=== PATIENT | female | born 1980 | race Caucasian/White ===

== ENCOUNTER 2021-08-15 10:34 | Day surgery (SDC) | payer OTHER ==
[2021-08-10 13:43] LABS: Absolute Lymphocytes (CBC) 2.1 K/uL (0.7-4.9); Hematocrit 41.5 % (36.0-45.0); Lymphocytes % 27.5 % (15.3-44.8); MPV 7.7 fL (7.6-11.3); RBC Red Blood Cell Count 4.71 M/uL (3.86-4.86)
[2021-08-10 13:54] LABS: Protime INR 1.13
[2021-08-10 14:15] LABS: Potassium 3.9 mmol/L (3.5-5.1)
[2021-08-15] MEDS ORDERED: Ringers Lactate 1,000 ML IV ONE (10:50)
[2021-08-15] MEDS ORDERED: CEFAZOLIN/SWI 2gm 2 GM/20 ML SYR ONE (10:50)
[2021-08-15 10:57] LABS: Specific Gravity >= 1.030 (1.005-1.030)
[2021-08-15] MEDS ORDERED: FENTANYL CITR 100 MCG/2 ML ONE (11:50)
[2021-08-15] MEDS ORDERED: propofoL 200 MG/20 ML VIAL IV ONE ×2 (11:50→12:42)
[2021-08-15] MEDS ORDERED: MIDAZOLAM HCL 2 MG/2 ML INJ ONE (11:50)
[2021-08-15] MEDS ORDERED: LIDOCAINE 1% MPF 5 ML VIAL ONE (11:51)
[2021-08-15] MEDS ORDERED: ONDANSETRON 4 MG/2 ML VIAL ONE (11:51)
[2021-08-15] MEDS ORDERED: dexAMETHasone 10 MG/ML VIAL ONE (11:51)
[2021-08-15] MEDS ORDERED: KETOROLAC 30 MG/ML INJ ONE (12:36)
[2021-08-15] MEDS ORDERED: Mastisol Adhesive Liq ONE (12:48)
--- NOTE | 2021-08-15 13:12 | RAD REPORT ---
EXAM DESCRIPTION: RAD - Urethrocystogrphy Retrograde - 08/15/2021 1:08 pm CLINICAL HISTORY: BILAT RETROGRADE COMPARISON: No comparisons FINDINGS: Total fluoro time: 47 seconds
[2021-08-15] MEDS ORDERED: PHENAZOPYRIDINE 100MG TAB PO ONE ×2 (13:37→14:12)
[2021-08-15] MEDS ORDERED: CODEINE 30MG/APAP 300MG TAB PO PRN (13:37)
--- NOTE | 2021-08-15 14:25 | OP ---
Surgeon: LAUREN CALVILLO Preoperative Diagnoses: 1.Bladder lesion. 2.Mildly suspicious Cxbladder Detect score. Postoperative Diagnoses: 1.Bladder lesion. 2.Mildly suspicious Cxbladder Detect score. 3.Right upper mid pole calyceal blunting/filling defect. Principal Procedures: 1.Cystoscopy with bladder biopsies x3 and fulguration. 2.Bilateral retrograde pyelographies. 3.Right ureteroscopy. 4.Right ureteral stent placement. Indication For Procedure: Ms. Velez is a 41-year-old woman with microscopic hematuria, who present ed for cystoscopic evaluation. There significant degree of squamous metaplasia was noted in the trig one and around the ureteral orifices bilaterally with a small approximately 2 mm yellowish appearing sessile nodule posteriorly. She underwent a renal ultrasound, which was unremarkable and a Cxbladder Detect score was sent to assess the potential for underlying genetic signs of malignancy. The Cxbla dder Detect score came out borderline for hygiene expression and given the significant degree of squa mous metaplasia noted, I recommended bladder biopsies as well as retrograde pyelography studies since she did not undergo a CT urogram. Procedure In Detail: The patient was consented in the preoperative holding area before being transfe rred to the operative suite where general anesthesia was induced. She was given Ancef IV antimicrobi al prophylaxis and pneumo boots were provided for DVT prophylaxis. She was placed in lithotomy posit ion, padded and secured to the table appropriately. Her genitalia were prepped using Hibiclens and d raped in standard fashion. The case was begun using a 22-Liberian rigid cystoscope to traverse the ure thra and into the bladder with ease. The bladder was then surveyed in its entirety, and the previous ly observed sessile yellowish appearing nodule posteriorly was no longer visible. The significant de gree of squamous metaplasia noted within the trigone and medial to the ureteral orifices bilaterally was again noted. There was efflux of clear yellow urine coming from each kidney. As such, I began b y cannulating the left ureteral orifice using the tip of the 5-Liberian ureteral access catheter and pe rform a retrograde pyelogram. Left retrograde pyelography: Using a 70:30 mixture of Omnipaque and saline, contrast was injected via the lumen of the 5-Liberian ur eteral access catheter and did propagate up a nondilated ureter without evidence of ureteral filling defect before entering a normal renal pelvis without any signs of caliectasis or filling defects note d. As a result, the 5-Liberian ureteral access catheter was removed, and I turned my attention to the right ureteral orifice, which was similarly cannulated using the 5-Liberian ureteral access catheter. Right retrograde pyelography: Using a similar 70:30 mixture of Omnipaque and saline, the contrast mixture was injected via the 5-Fr ench ureteral access catheter and did propagate up a nondilated ureter without evidence of ureteral f illing defect before entering the renal pelvis, which did fill normally without evidence of filling d efect. The upper and lower pole calices also delineated normally without evidence of filling defects . Within the mid pole superiorly, there was a solitary calyx that appeared blunted without the stand cortney sharp calyceal distribution. Despite further attempts to fill that by injection of further contr ast, the blunting persisted; so I then passed a Sensor wire via the 5-Liberian ureteral access catheter and coiled it within the upper pole of the right kidney. I then removed the 5-Liberian ureteral acces s catheter and passed a dual-lumen catheter over the wire into the upper part of the right ureter. C ontrast was injected early on in the course of insertion of the dual-lumen catheter into the distal u reter to confirm the appropriate intraureteral lumen location of the catheter and the wire. As such, once in the upper portion of the right ureter, I then passed a Bentson guidewire into the renal pelv is where it coiled fluoroscopically. I then left the dual-lumen catheter and placed to dilate the tr act in preparation for definitive ureteroscopy. Right ureteroscopy. The flexible optical ureteroscope was then passed over the indwelling Bentson wi re into the upper portion of the right ureter. There, the wire was removed, and pressurized sterile water irrigation was used to visualize the upper portion of the ureter beyond the UPJ and passed into the kidney. The upper pole calices were surveyed without any mucosal lesion, foreign body, or stone . I then surveyed into the upper mid pole calices, particularly the calyx that was somewhat blunted, and found a solitary calyx that emanated directly off the renal pelvis without any significant infun dibulum explaining the blunting seen in that location fluoroscopically on retrograde. I then surveye d into the mid lower pole calices and into the lower pole calices, confirmed fluoroscopically that ea ch position had been seen. Additional antegrade injection of contrast was performed to ensure that e ach of the calices had been visualized. Once I confirmed that I had seen all of the calices, I then surveyed the renal pelvis down into the proximal down through the mid and distal ureter on the way ou t. No other mucosal lesions, foreign bodies or stones were noted throughout. As such, ureteroscopy was discontinued. I then back-loaded the rigid cystoscope over the indwelling safety wire and passed a 6-Liberian by 26 cm double-J right ureteral stent, left on it string/tether. Then leaving the stent tethered outside of the introitus, with fluoroscopic imagery confirming the presence of the coil wit hin the right kidney and visualizing a coil within the bladder, I then turned my attention to biopsyi ng the areas of the trigone of suspicion. Biopsy from the right ureteral orifice was taken first, th en from the left ureteral orifice, then from the trigone. These were each sent for pathologic analys is. I then employed the Bugbee electrode to gently fulgurate any bleeding vessels seen in the areas of biopsy taken. I then decompressed her bladder and observed for any sign of bleeding, and with no additional bleeding noted, I removed the cystoscope terminating the case. I then secured the tether of the ureteral stent to her introitus using Mastisol and Steri-Strips. She was then taken out of th e lithotomy position, awakened from general anesthesia, transferred to a stretcher, and then transfer red to the recovery room in good condition. Complications: None. Discharge Disposition: She should follow up in the Urology Clinic in 1-2 weeks' time to discuss the results of pathology. She may come by sooner, within the next 2 or 3 days, to have the right uretera l stent on its tether removed. I will discharge her with a few days of antimicrobial therapy while the stent on its tether remains in place. WR/MODL Voice ID: [id number] Report ID: [id number]
[2021-08-15 15:35] VITALS: BP 141/80; TEMP 97.7; O2SAT 100
== END 2021-08-15 14:35 | disposition home or self-care (01) ==
LOC: OR 10:34
PROVIDERS: ATTEND Urology
PROC: 0TBB8ZX Excision of Bladder, Via Natural or Artificial Opening Endoscopic, Diagnostic (ICD-10-PCS; principal; 2021-08-15 12:00)
PROC: 0T768DZ Dilation of Right Ureter with Intraluminal Device, Via Natural or Artificial Opening Endoscopic (ICD-10-PCS; 2021-08-15 12:00)
DX: R31.29 Other microscopic hematuria (principal); N32.9 Bladder disorder, unspecified; Z20.822 Contact with and (suspected) exposure to COVID-19
CPT/HCPCS: 87088; 85025; 87086; 80048; 36415; 81025; 85610; 88305; 74450; 51610; 52204; 52332; U0002; J2704 ×2; J2250; J3010; J1100; J0690; J7120; J2405

== ENCOUNTER 2021-08-20 09:01 | Day surgery (SDC) | payer OTHER ==
--- OUTSIDE RECORDS SUMMARY | 2021-08-20 09:07 | XMS REPORT | Continuity of Care Document ---
:1980 Author Organization [facility] Address [address] [place] [address] Care Team Providers Name Role Phone Lindy_Francisco Attending Clinician Unavailable AMBREEN_ALESIA Attending Clinician Unavailable SEYMOUR Attending Clinician Unavailable Nguyneil_Tho Admitting Clinician Unavailable AMBREEN_FARHANA Admitting Clinician Unavailable JENNY_CATIE Admitting Clinician Unavailable Payers Payer Name Policy Type Policy Number Effective Date Expiration Date [facility] [id number] Problems Condition Condition Condition Status Onset Resolution Last Treating Co mments Source Name Details Category Date Date Treatment Clinician Date Bladder Bladder Problem Active [place] finding Finding 1-12 da [facility] Recurrent Recurrent Problem Active 2020-07 [place] hematuria Hematuria 2-15 da 00:00: [facility] Urine Urine Problem Active 2020-07 [place] microscopy microscopy 2-15 da :RBC's :RBC's 00:00: [facility] present Present 00 al [facility] Allergic Allergic Problem Active 2020-07 [place] conjunctiv Conjunctiv 1-18 da itis itis 00:00: [facility] Allergic Allergic Problem Active 2020-07 [place] rhinitis Rhinitis 1-18 da 00:00: [facility] Allergic Allergic Problem Active 2020-07 [place] asthma Asthma 1-18 da 00:00: [facility] Pica Pica Problem Active [place] 6-02 da 00:00: [facility] 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 [facility] [place] insufficie Insufficie 2-03 da ncy of ncy of 00:00: [facility] aortic Aortic 00 al valve Valve Health Outreac h Program Bicuspid Bicuspid Problem Active 2018-07 [place] aortic Aortic 1-11 da valve Valve 00:00: [facility] Migraine Migraine Problem Active 2017-07 [place] without without 0-24 da aura Aura 00:00: [facility] Chronic Chronic Problem Active 2017-07 [place] gastritis Gastritis 0-24 da 00:00: [facility] Major Major Problem Active [place] depressive Depressive 9-10 da disorder Disorder 00:00: [facility] p 00 hi [facility] Hyperlipid Hyperlipid Problem Active [facility] [place] emia emia 8 da 00:00: [facility] Anxiety Anxiety Problem Active [place] 8 da 00:00: [facility] Asthma Asthma Problem Active [place] 8 da 00:00: [facility] Allergies, Adverse Reactions, Alerts Allergy Allergy Status Severity Reaction(s) Onset Inactive Treating Comm ents Source Name Type Date Date Clinician Atenolol Allergy Active Mild to Other [place] to moderate da substanc [facility] Topamax Allergy Active Mild to Other [place] to moderate da substanc [facility] Singulai Allergy Active Hives [place] to da substanc [facility] Social History Smoking Status Start Date Stop Date Source Never Smoker [place] [facility] Medications Ordered Filled Start Stop Current Ordering Indication Dosage Frequency Signature Comments Components Source Medication Medication Date Date Medication? Clinician (SIG) Name Name cannabidiol cannabidiol No cannabidio [place] (CBD) (CBD) 1-20 l (CBD) da extract 1-2 extract 1-2 00:00: extract [facility] gummy gummy 00 1-2 gummy al vitamins PO vitamins PO vitamins Health qd prn qd prn PO qd prn Outrea c h Program Advair HFA Advair HFA No Advair HFA [place] 115 mcg-21 115 mcg-21 115 mcg-21 da mcg/actuati mcg/actuati mcg/actuat [facility] on aerosol on aerosol ion al inhaler inhaler aerosol Health INHALE 2 INHALE 2 inhaler Outr eac PUFFS BY PUFFS BY INHALE 2 h MOUTH TWICE MOUTH TWICE PUFFS BY Program DAILY DAILY MOUTH DIRECTED DIRECTED TWICE DAILY DIRECTED albuterol albuterol No albuterol [place] sulfate HFA sulfate HFA sulfate da 90 90 HFA 90 [facility] mcg/actuati mcg/actuati mcg/actuat al on aerosol on aerosol ion Hea lth inhaler inhaler aerosol Outrea c INHALE 2 INHALE 2 inhaler h PUFFS BY PUFFS BY INHALE 2 Pro gram MOUTH EVERY MOUTH EVERY PUFFS BY 4 HOURS 4 HOURS MOUTH NEEDED NEEDED EVERY 4 HOURS NEEDED atorvastati atorvastati No atorvastat [place] n 10 mg n 10 mg in 10 mg da tablet Take tablet Take tablet [facility] 1 tablet(s) 1 tablet(s) Take 1 al every day every day tablet(s) Health by oral by oral every day Outr eac route at route at by oral h bedtime. bedtime. route at Pro gram bedtime. CoQ-10 300 CoQ-10 300 No CoQ-10 300 [place] mgs PO qd mgs PO qd mgs PO qd da [facility] desvenlafax desvenlafax No 1 Q1D desvenlafa [place] ine ine xine da succinate succinate succinate [facility] ER 25 mg ER 25 mg ER 25 mg al tablet,exte tablet,exte tablet,ext Health nded nded ended Outreac release 24 release 24 release 24 h hr Take 1 hr Take 1 hr Take 1 Program tablet tablet tablet every day every day every day by oral by oral by oral route in route in route in the the the morning. morning. morning. desvenlafax desvenlafax No desvenlafa [place] ine ine xine da succinate succinate succinate [facility] ER 50 mg ER 50 mg ER 50 mg al tablet,exte tablet,exte tablet,ext Health nded nded ended Outreac release 24 release 24 release 24 h hr TAKE 1 hr TAKE 1 hr TAKE 1 Program TABLET BY TABLET BY TABLET BY MOUTH EVERY MOUTH EVERY MOUTH DAY IN THE DAY IN THE EVERY DAY MORNING MORNING IN THE MORNING epinephrine epinephrine No epinephrin [place] 0.3 mg/0.3 0.3 mg/0.3 e 0.3 da mL mL mg/0.3 mL [facility] injection, injection, injection, al auto-inject auto-inject auto-injec Health or INJECT 1 or INJECT 1 tor INJECT Outreac PEN IN THE PEN IN THE 1 PEN IN h MUSCLE MUSCLE THE MUSCLE Program NEEDED NEEDED NEEDED Fish Oil Fish Oil No 1capsul Q1D Fish Oil [place] 1,200 mg 1,200 mg e(s) 1,200 mg da (144 mg-216 (144 mg-216 (144 E [facility] mg) capsule mg) capsule mg-216 mg) al Take 1 Take 1 capsule Health capsule capsule Take 1 Outreac every day every day capsule h by oral by oral every day Prog mini route as route as by oral directed. directed. route as directed. fluticasone fluticasone No 1spray( Q1D fluticason [place] propionate propionate s) e da 50 50 propionate [facility] mcg/actuati mcg/actuati 50 a l on nasal on nasal mcg/actuat H ealth spray,suspe spray,suspe ion nasal Outreac nsion [place]ountain nsion [place]ountain spray,susp h 1 spray 1 spray ension Program every day every day Fountain 1 by by spray intranasal intranasal every day route as route as by needed. needed. intranasal route as needed. magnesium magnesium No 1 magnesium [place] 250 mg (as 250 mg (as 250 mg (as da magnesium magnesium magnesium [facility] oxide) oxide) oxide) al tablet Take tablet Take tablet Health 1 tablet as 1 tablet as Take 1 Outreac needed by needed by tablet as h oral route oral route needed by Program at bedtime. at bedtime. oral route at bedtime. meclizine meclizine No 1 Q12H meclizine [place] 50 mg 50 mg 50 mg da tablet Take tablet Take tablet [facility] 1 tablet 1 tablet Take 1 al every 12 every 12 tablet Healt h hours by hours by every 12 Out reac oral route oral route hours by h as needed as needed oral route Program for 10 for 10 as needed days. days. for 10 days. ondansetron ondansetron No ondansetro [place] 8 mg 8 mg n 8 mg da disintegrat disintegrat disintegra [facility] ing tablet ing tablet ting al DISSOLVE 1 DISSOLVE 1 tablet H ealth TABLET ON TABLET ON DISSOLVE 1 Outreac THE TONGUE THE TONGUE TABLET ON h EVERY 8 EVERY 8 THE TONGUE Pro gram HOURS FOR 5 HOURS FOR 5 EVERY 8 DAYS DAYS HOURS FOR NEEDED NEEDED 5 DAYS NEEDED rizatriptan rizatriptan No rizatripta [place] 10 mg 10 mg n 10 mg da disintegrat disintegrat disintegra [facility] ing tablet ing tablet ting al DISSOLVE 1 DISSOLVE 1 tablet H ealth TABLET ON TABLET ON DISSOLVE 1 Outreac THE TONGUE THE TONGUE TABLET ON h FOR ACUTE FOR ACUTE THE TONGUE Program MIGRAINE. MIGRAINE. FOR ACUTE REPEAT IN 1 REPEAT IN 1 MIGRAINE. HOUR IF HOUR IF REPEAT IN NEEDED NEEDED 1 HOUR IF NEEDED trazodone trazodone No trazodone [place] 50 mg 50 mg 50 mg da tablet TAKE tablet TAKE tablet [facility] 1 TABLET BY 1 TABLET BY TAKE 1 al MOUTH EVERY MOUTH EVERY TABLET BY Health DAY DAY MOUTH Outreac EVERY DAY h Program turmeric 1 turmeric 1 No turmeric 1 [place] capsule capsule capsule da every day every day every day [facility] as needed as needed as needed al for sleep for sleep for sleep Health Outreac h Program Vitamin D3 Vitamin D3 No Vitamin D3 [place] [id number] 53723 da units/250 units/250 units/250 [facility] mcgs by mcgs by mcgs by al mouth once mouth once mouth once Health daily daily daily Outreac h Program Zyrtec 10 Zyrtec 10 No Zyrtec 10 [place] mg capsule mg capsule mg capsule da [facility] Immunizations Ordered Immunization Filled Immunization Date Status Commen ts Source Name Name HPV9 HPV9 2021-07-31 Completed [place] 14:49:18 [facility] pneumococcal pneumococcal 2021-07-31 Completed [place] polysaccharide PPV23 polysaccharide PPV23 14:43:27 [facility] influenza, influenza, 2021-04-17 Completed [place] injectable, injectable, 00:00:00 [facility] quadrivalent quadrivalent [facility] Out reach Program COVID-19, mRNA, COVID-19, mRNA, 2020-09-16 Completed Lynn mau LNP-S, PF, 100 LNP-S, PF, 100 12:54:18 [facility] pal mcg/0.5 mL dose mcg/0.5 mL dose Heal th Outreach (Moderna) (Moderna) Program COVID-19, mRNA, COVID-19, mRNA, 2020-08-10 Completed Lynn mau LNP-S, PF, 100 LNP-S, PF, 100 11:21:20 [facility] pal mcg/0.5 mL dose mcg/0.5 mL dose Heal th Outreach (Moderna) (Moderna) Program influenza, influenza, 2020-03-31 Completed [place] injectable, injectable, 00:00:00 [facility] quadrivalent quadrivalent [facility] Out reach Program influenza, influenza, 2019-04-14 Completed [place] injectable, injectable, 00:00:00 [facility] quadrivalent quadrivalent [facility] Out reach Program pneumococcal pneumococcal 2015-05-06 Completed [place] polysaccharide PPV23 polysaccharide PPV23 00:00:00 [facility] Tdap Tdap 2014-11-12 Completed [place] 00:00:00 [facility] Vital Signs Vital Name Observation Time Observation Value Comments Source BP Diastolic 2021-07-04 00:00:00 84 [facility] Height 2021-07-04 00:00:00 67 [in_i] [facility] BMI (Body Mass 2021-07-04 00:00:00 39 kg/m2 [place] cap blocker [facility] Index) [facility] Outreach Program BP Systolic 2021-07-04 00:00:00 126 mm[facility]Hg[facility] Body Weight 2021-07-04 00:00:00 3984 [oz_av] [facility] BP Diastolic 2021-06-20 00:00:00 78 mm[Hg[facility] Height 2021-06-20 00:00:00 67 [in_i] [facility] BMI (Body Mass 2021-06-20 00:00:00 38.4 kg/m2 [place] cap blocker [facility] Index) [facility] Outreach Program BP Systolic 2021-06-20 00:00:00 116 mm[Hg] [facility] Body Weight 2021-06-20 00:00:00 3920 [oz_av] [facility] BP Diastolic 2021-01-19 00:00:00 78 mm[Hg] [facility] Height 2021-01-19 00:00:00 67 [in_i] [place] [facility] BMI (Body Mass 2021-01-19 00:00:00 36.8 kg/m2 [place] cap blocker [facility] Index) [facility] Outreach Program BP Systolic 2021-01-19 00:00:00 118 mm[Hg] [place] [facility] Body Weight 2021-01-19 00:00:00 3760 [oz_av] [place] [facility] BP Diastolic 2020-11-29 00:00:00 88 mm[Hg] [place] [facility] Height 2020-11-29 00:00:00 67 [in_i] [place] [facility] BMI (Body Mass 2020-11-29 00:00:00 36.6 kg/m2 [place] cap blocker [facility] Index) [facility] Outreach Program BP Systolic 2020-11-29 00:00:00 126 mm[Hg] [place] [facility] Body Weight 2020-11-29 00:00:00 3744 [oz_av] [place] [facility] BP Diastolic 2020-09-28 00:00:00 75 mm[Hg] [place] [facility] Height 2020-09-28 00:00:00 67 [in_i] [place] [facility] BMI (Body Mass 2020-09-28 00:00:00 36 kg/m2 [place] cap blocker [facility] Index) [facility] Out[facility] Program BP Systolic 2020-09-28 00:00:00 129 mm[Hg] [place] [facility] Body Weight 2020-09-28 00:00:00 3680 [oz_av] [place] [facility] BP Diastolic 2020-07-05 00:00:00 84 mm[Hg] [place] [facility] Height 2020-07-05 00:00:00 67 [in_i] [place] [facility] BP Systolic 2020-07-05 00:00:00 129 mm[Hg] [place] [facility] Height 2020-06-20 00:00:00 67 [in_i] [place] [facility] Height 2020-06-06 00:00:00 67 [in_i] [place] [facility] BP Diastolic 2020-04-15 00:00:00 94 mm[Hg] [place] [facility] Height 2020-04-15 00:00:00 67 [in_i] [place] [facility] BMI (Body Mass 2020-04-15 00:00:00 36 kg/m2 [place] cap blocker [facility] Index) [facility] Outreach Program BP Systolic 2020-04-15 00:00:00 128 mm[Hg] [place] [facility] Body Weight 2020-04-15 00:00:00 3680 [oz_av] [place] [facility] BP Diastolic 2019-12-28 00:00:00 68 mm[Hg] [place] [facility] Height 2019-12-28 00:00:00 67 [in_i] [place] [facility] BMI (Body Mass 2019-12-28 00:00:00 39.4 kg/m2 [place] cap blocker [facility] Index) [facility] Outreach Program BP Systolic 2019-12-28 00:00:00 124 mm[Hg] [place] [facility] Body Weight 2019-12-28 00:00:00 4027.2 [oz_av] [place] [facility] BP Diastolic 2019-08-25 00:00:00 92 mm[Hg] [place] [facility] Height 2019-08-25 00:00:00 67 [in_i] [place] [facility] BMI (Body Mass 2019-08-25 00:00:00 37.6 kg/m2 [place] cap blocker [facility] Index) [facility] Outreach Program BP Systolic 2019-08-25 00:00:00 115 mm[Hg] [place] [facility] Body Weight 2019-08-25 00:00:00 240.2 [lb_av] [place] [facility] BP Diastolic 2019-06-05 00:00:00 84 mm[Hg] [place] [facility] Height 2019-06-05 00:00:00 67 [in_i] [place] [facility] BMI (Body Mass 2019-06-05 00:00:00 36.8 kg/m2 [place] cap blocker [facility] Index) [facility] BP Systolic 2019-06-05 00:00:00 132 mm[Hg] [place] [facility] Body Weight 2019-06-05 00:00:00 235 [lb_av] [place] [facility] BP Diastolic 2019-05-20 00:00:00 80 mm[Hg] [place] [facility] Height 2019-05-20 00:00:00 67 [in_i] [place] [facility] BMI (Body Mass 2019-05-20 00:00:00 37.4 kg/m2 [place] cap blocker [facility] Index) [facility] Outreach Program BP Systolic 2019-05-20 00:00:00 100 mm[Hg] [place] [facility] Body Weight 2019-05-20 00:00:00 239.1 [lb_av] [place] [facility] BP Diastolic 2019-04-22 00:00:00 86 mm[Hg] [place] [facility] Height 2019-04-22 00:00:00 67 [in_i] [place] [facility] BMI (Body Mass 2019-04-22 00:00:00 37.5 kg/m2 [place] cap blocker [facility] Index) [facility] Outreach Program BP Systolic 2019-04-22 00:00:00 112 mm[Hg] [place] [facility] Body Weight 2019-04-22 00:00:00 239.2 [lb_av] [place] [facility] BP Diastolic 2019-04-15 00:00:00 82 mm[Hg] [place] [facility] Height 2019-04-15 00:00:00 67 [in_i] [place] [facility] BMI (Body Mass 2019-04-15 00:00:00 37.4 kg/m2 [place] cap blocker [facility] Index) [facility] Outreach Program BP Systolic 2019-04-15 00:00:00 110 mm[Hg] [place] [facility] Body Weight 2019-04-15 00:00:00 239.1 [lb_av] [place] [facility] BP Diastolic 2019-03-20 00:00:00 90 mm[Hg] [place] [facility] Height 2019-03-20 00:00:00 67 [in_i] [place] [facility] BMI (Body Mass 2019-03-20 00:00:00 37.6 kg/m2 [place] cap blocker [facility] Index) [facility] Outreach Program BP Systolic 2019-03-20 00:00:00 140 mm[Hg] [place] [facility] Body Weight 2019-03-20 00:00:00 240.2 [lb_av] [place] [facility] BP Diastolic 2019-03-11 00:00:00 90 mm[Hg] [place] [facility] Height 2019-03-11 00:00:00 67 [in_i] [place] [facility] BP Systolic 2019-03-11 00:00:00 130 mm[Hg] [place] [facility] BP Diastolic 2018-11-20 00:00:00 97 mm[Hg] [place] [facility] Height 2018-11-20 00:00:00 67 [in_i] [place] [facility] BMI (Body Mass 2018-11-20 00:00:00 37.6 kg/m2 [place] cap blocker [facility] Index) [facility] Outreach Program BP Systolic 2018-11-20 00:00:00 136 mm[Hg] [place] [facility] Body Weight 2018-11-20 00:00:00 240 [lb_av] [place] [facility] Procedures Procedure Date / Time Performed Performing Clinician Sourc e Cystoscopy 2021-07-26 00:00:00 Joanne [facility] MAMMO, diagnostic, 2021-07-24 00:00:00 Joanne [facility] digital, unilateral Health Outre ach Program US, breast, 2021-07-20 00:00:00 [place] [facility] unilateral, complete Health Outr each Program ELECTROCARDIOGRAM, 2021-07-04 00:00:00 [place] [facility] COMPLETE [facility] US, breast, unilateral 2021-07-04 00:00:00 [place] [facility] MAMMO, screening, 2020-06-06 00:00:00 [place] [facility] digital, bilateral Health Outrea ch Program ELECTROCARDIOGRAM, 2020-06-06 00:00:00 [place] [facility] COMPLETE [facility] CHEST X-RAY 2019-08-25 00:00:00 [place] [facility] MAMMO, screening, 2019-04-22 00:00:00 [place] [facility] digital, bilateral Health Outrea ch Program ELECTROCARDIOGRAM, 2019-04-15 00:00:00 [place] [facility] COMPLETE [facility] XR, ankle + foot 2018-10-29 00:00:00 [place] [facility] Nasal Surgery [place] [facility] pal Procedure [facility] Outreach Program Plan of Care Planned Activity Planned Date Details Comments Source Future Appointment 2022-01-28 00:00:00 Catie La, [place] [facility] [address] , [place] Program [id number] Future Appointment 2022-01-18 15:00:00 Tia Kramer, [address] [place] [facility] , [place] Program [phone] Future Appointment 2021-10-16 14:30:00 Wang Torres, [address] [place] [address] , [place] Program [phone] Instructions [place] [facility] Encounters Start End Encounter Admission Attending Care Care Encounter Source Date/Time Date/Time Type Type Clinicians Facility Department ID 2021-08-09 Outpatient [facility] [id number] 13:33:00 [id number] Mayank Begum l Outpat[facility] ent Clinics 2021-08-15 2021-08-15 Outpatient Tiffanie SLADE [id number] [place] 03:17:00 03:17:00 0201 [facility] 2021-08-11 2021-08-11 Outpatient Nguyen_Sunilo [facility] [id number] [place] 05:54:00 05:54:00 0128 [facility] 2021-08-10 2021-08-10 Outpatient Nguyen_Sunilo [facility] [id number] [place] 07:43:00 07:43:00 0127 [facility] 2021-08-10 2021-08-10 Jhoan [facility] [place] - [id number] M [place] 00:00:00 00:00:00 Joanne Beauchamp da CNC LATHE PROGRAMMER: [id number] [facility] [address] [facility], [facility] [place] Program [id number] , Ph. 2021-08-04 2021-08-04 Outpatient Ngyueen_Francisco [facility] [id number] [place] 05:30:00 05:30:00 0121 [facility] 2021-08-04 2021-08-04 Jhoan [facility] [place] - [id number] M [place] 00:00:00 00:00:00 Joanne Beauchamp CNC LATHE PROGRAMMER: [id number] [facility] [place] [address] [facility] A, [facility] [place] Program [phone] , Ph. 2021-08-01 2021-08-01 Outpatient Nguyen_Sunilo [facility] [id number] [place] 05:31:00 05:31:00 0118 [facility] 2021-07-31 2021-07-31 Outpatient Nguyen_Sunilo [facility] [id number] [place] 03:27:00 03:27:00 0117 [facility] 2021-07-31 2021-07-31 Sunilchhaya [facility] [place] - [id number] M at[place] 00:00:00 00:00:00 Joanne Israel da PER DIEM PHYSICAL THERAPIST ASSISTANT-TIRE BALANCER-C: [facility] [address] [facility] [phone] [facility] , Ph. 2021-07-27 2021-07-27 Outpatient Nguyen_Tho [facility] [id number] [place] 12:26:00 12:26:00 0113 [facility] 2021-07-26 2021-07-26 Outpatient Nguyen_Tho [facility] [id number] [place] 04:58:00 04:58:00 0112 [facility] 2021-07-26 2021-07-[facility] [id number]:00 00:00:00 Joanne Beauchamp CNC LATHE PROGRAMMER: 1700 [facility] Epis copy worker [facility] [phone] h , Ph. Program ([id number]) 2021-07-21 2021-07-21 Outpatient Nguyen_Tho [facility] [id number] [place] 09:11:00 09:11:00 0107 [facility] 2021-07-20 2021-07-20 Outpatient Nguyen_Tho [facility] [id number] [place] 02:13:00 02:13:00 0106 [facility] 2021-07-18 2021-07-18 Outpatient Nguyen_Tho [facility] [id number] [place] 08:58:00 08:58:00 0104 [facility] 2021-07-04 2021-07-04 Outpatient Nguyen_Tho [facility] [id number] [place] 04:31:00 04:31:00 1221 [facility] 2021-07-04 2021-07-04 [facility] - [id number] M [place] 00:00:00 00:00:00 Joanne Israel da PER DIEM PHYSICAL THERAPIST ASSISTANT-TIRE BALANCER-C: [facility] [address] [facility] [address], [facility] [id number] Progr am , Ph. 2021-06-22 2021-06-22 Outpatient Nguyen_[facility] 8919 [place] 04:33:00 04:33:00 1209 [facility] 2021-06-20 2021-06-20 Outpatient AMBREEN_[place] [id number] [place] 12:47:00 12:47:00 HANA 1207 da [facility] 2021-06-20 2021-06-20 Francisco [facility] [id number] [place] 00:00:00 00:00:00 Joanne Israel da PER DIEM PHYSICAL THERAPIST ASSISTANT-TIRE BALANCER-C: [facility] [address] [facility] [address], [facility] [id number] [place] am , Ph. 2021-05-09 2021-05-09 Outpatient AMBREEN_[place]AR [place] [id number] [place] 04:07:00 04:07:00 HANA 1026 da [facility] 2021-05-09 2021-05-09 [facility] [id number] M at[place] 00:00:00 00:00:00 Joanne Beauchamp da CNC LATHE PROGRAMMER: 1700 [facility] Epis copy worker [facility] [phone] h , Ph. Program ([id number]) 2021-05-03 2021-05-03 Outpatient AMBREEN_[place] [id number] [place] 10:42:00 10:42:00 HANA 1020 da [facility] 2021-05-03 2021-05-03 Jhoan [facility] [id number] M at[place] 00:00:00 00:00:00 Joanne Beauchamp [facility]: [id number] [facility] [place] [address] [facility] [address], [facility] Program [phone] , Ph. 2021-05-02 2021-05-02 Outpatient AMBREEN_FAR [facility] 89 [place] 12:36:00 12:36:00 HANA 1019 [facility] 2021-05-01 2021-05-01 Outpatient AMBREEN_FAR MEHOP [facility] 89 [place] 12:29:00 12:29:00 HANA 1018 [facility] 2021-05-01 2021-05-01 [facility] [id number] [place] 00:00:00 00:00:00 Ismael Torres MD: [facility] [address] [facility] [id number] [facility] , Ph. ([phone]) 2021-03-27 2021-03-27 Outpatient AMBREEN_FAR [place] [id number] [place] 12:35:00 12:35:00 HANA 0913 [facility] 2021-02-20 2021-02-20 Outpatient AMBREEN_FAR MEHOP [facility] 89 [place] 12:27:00 12:27:00 HANA 0809 [facility] 2021-01-31 2021-01-31 Outpatient AMBREEN_FAR MEHOP [facility] 891 [place] 05:48:00 05:48:00 HANA 0720 [facility] 2021-01-30 2021-01-30 Outpatient AMBREEN_FAR MEHOP [facility] 891 [place] 04:41:00 04:41:00 HANA 0719 [facility] 2021-01-30 2021-01-30 [facility] [place] [facility] [id number] [place] 00:00:00 00:00:00 Joanne Beauchamp [facility]: [id number] Tenriism Epi scop [place] 59 [facility] [address], [facility] Program [address] , Ph. 2021-01-19 2021-01-19 Outpatient AMBREEN_FAR [facility] 891 [place] 02:53:00 02:53:00 HANA 0708 [facility] 2021-01-19 2021-01-19 [facility] [place] - [id number] M [place] 00:00:00 00:00:00 Joanne Israel PER DIEM PHYSICAL THERAPIST ASSISTANT-TIRE BALANCER-C: Tenriism Epi scop 1700 [facility] [address] [facility] , Ph. 2021-01-12 2021-01-12 Outpatient AMBREEN_FAR MEHOP [facility] 891 [place] 04:07:00 04:07:00 HANA 0701 [facility] 2020-12-07 2020-12-07 Outpatient AMBREEN_FAR MEHOP [facility] 891 [place] 09:07:00 09:07:00 HANA 0526 [facility] 2020-11-29 2020-11-29 Outpatient AMBREEN_FAR [facility] 89 [place] 12:31:00 12:31:00 HANA 0518 [facility] 2020-11-29 2020-11-29 [facility] [place] - [id number] M [place] 00:00:00 00:00:00 Joanne Israel da PER DIEM PHYSICAL THERAPIST ASSISTANT-TIRE BALANCER-C: Tenriism Epi scop 1700 [facility] [address] [facility] evelyn , Ph. 2020-10-24 2020-10-24 Outpatient AMBREEN_FAR [place] [id number] [place] 02:18:00 02:18:00 HANA 0412 [facility] 2020-10-24 2020-10-24 Wang [facility] [place] - [id number] [place] 00:00:00 00:00:00 Ismael Torres MD: Tenriism Epi scop 1700 [facility] [address] [facility] , Ph. (979) 2020-09-28 2020-09-28 Outpatient AMBREEN_FAR [place] [id number] [place] 10:55:00 10:55:00 HANA 0317 [facility] 2020-09-28 2020-09-28 Jaimee Mccann [facility] [place] - [id number] [place] 00:00:00 00:00:00 Joanne Pedro TIRE BALANCER: 1700 Tenriism [facility] [place] [address] Out[place] [address] h , Ph. Program 2020-09-23 2020-09-23 Outpatient AMBREEN_FAR [place] [id number] [place] 05:19:00 05:19:00 HANA 0312 [facility] 2020-09-23 2020-09-23 Jhoan [facility] [place] - [id number] M [place] 00:00:00 00:00:00 Joanne Beauchamp CNC LATHE PROGRAMMER: [id number] Tenriism Epi scop US [address] [facility] [address], [place] [facility] [address] , Ph. 2020-09-16 2020-09-16 Outpatient AMBREEN_FAR [place] [address] [place] 03:00:00 03:00:00 HANA 0305 [facility] 2020-09-16 2020-09-16 Alesia [facility] [place] - [id number] M [place] 00:00:00 00:00:00 Joanne Siddiqui MD: 17[address] [facility] [facility] [facility] [address] [address] h , Ph. Program 2020-08-16 2020-08-16 Outpatient AMBREEN_FAR MEHOP [facility] 891 [place] 01:03:00 01:03:00 HANA 0202 [facility] 2020-08-10 2020-08-10 Outpatient AMBREEN_FAR MEHOP [facility] 891 [place] 12:29:00 12:29:00 HANA 0127 [facility] 2020-08-10 2020-08-10 Alesia [facility] [place] - [id number] M [place] 00:00:00 00:00:00 Joanne Siddiqui MD: [address] [place] Outre [address] h , Ph. Program 2020-07-12 2020-07-12 Outpatient AMBREEN_FAR MEHOP [facility] 891 [place] 01:04:00 01:04:00 HANA 1229 [facility] 2020-07-05 2020-07-05 Outpatient AMBREEN_FAR M[facility]OP [facility] 891 [place] 05:06:00 05:06:00 HANA 1222 [facility] 2020-07-05 2020-07-05 Jaimee Mccann [facility] [place] - [id number] [place] 00:00:00 00:00:00 Joanne Pedro TIRE BALANCER: 17[address] [facility] [address] [facility] [address] h , Ph. Program 2020-07-04 2020-07-04 Outpatient AMBREEN_FAR MEHOP [facility] 891 [place] 02:30:00 02:30:00 HANA 1221 [facility] 2020-07-04 2020-07-04 Wang [facility] [place] - [id number] M [place] 00:00:00 00:00:00 Ismael Torres MD: Tenriism Epi scop 1700 [facility] [place] [address] [facility] , Ph. (979) 2020-06-20 2020-06-20 Outpatient AMBREEN_FAR MEHOP [facility] 891 [place] 05:36:00 05:36:00 HANA 1207 [facility] 2020-06-20 2020-06-20 [facility] - [id number] [place] 00:00:00 00:00:00 Joanne Siddiqui MD: 1700 Tenriism Ep[facility] op Malcolm [facility] [address] h , Ph. Program 2020-06-07 2020-06-07 Outpatient AMBREEN_FAR MEHOP [facility] 891 [place] 09:16:00 09:16:00 HANA 1124 [facility] 2020-06-06 2020-06-06 Outpatient AMBREEN_FAR MEHOP [facility] 891 [place] 05:28:00 05:28:00 HANA 1123 [facility] 2020-06-06 2020-06-06 Alesia [facility] [place] - [id number] M [place] 00:00:00 00:00:00 Joanne Siddiqui MD: 1700 Tenriism Episc op [facility] [address] h , Ph. Program 2020-04-15 2020-04-15 Outpatient AMBREEN_FAR MEHOP [facility] 891 [place] 10:26:00 10:26:00 HANA 1002 [facility] 2020-04-15 2020-04-15 Janet SL[place] - [id number] M [place] 00:00:00 00:00:00 Peg Lynn, Tenriism Episc op TIRE BALANCER: 1700 [facility] [address] [facility] am , Ph. 2020-03-28 2020-03-28 Outpatient AMBREEN_FAR [facility] 89 [place] 04:10:00 04:10:00 HANA 0914 [facility] 2020-03-28 2020-03-28 Wang [facility] [place] - [id number] M [place] 00:00:00 00:00:00 Ismael Torres MD: Tenriism Epi scop 1700 [facility] [address] Maxwell , Ph. ([phone]) 2020-03-27 2020-03-27 Outpatient AMBREEN_FAR [place] [address] [place] 09:16:00 09:16:00 HANA 0913 [facility] 2020-02-02 2020-02-02 Outpatient AMBREEN_FAR MSHOP [facility] 89 [place] 03:41:00 03:41:00 HANA 0912 [facility] 2019-12-28 2019-12-28 Outpatient AMBREEN_FAR MSHOP [facility] 891 [place] 02:55:00 02:55:00 HANA 0615 [facility] 2019-12-28 2019-12-28 Alesia [facility] [place] - [id number] M [place] 00:00:00 00:00:00 Joanne Siddiqui MD: 1700 Tenriism Episc op [facility] [place] [address] h , Ph. Program 2019-12-15 2019-12-15 Outpatient AMBREEN_FAR MSHOP [facility] 891 [place] 04:42:00 04:42:00 HANA 0602 [facility] 2019-12-15 2019-12-15 Jhoan [facility] [place] - [id number] M [place] 00:00:00 00:00:00 Joanne Beauchamp CNC LATHE PROGRAMMER: 1700 Tenriism Epis copy worker Fowler HOP - MEHOP al [place], [place] B.[facility] Outreac [address] h , Ph. Program [phone]) --20072019-12-13 2019-12-13 Outpatient AMBREEN_FAR MEHOP [facility] 891 [place] 12:35:00 12:35:00 HANA 0531 [facility] 2019-12-02 2019-12-02 Outpatient AMBREEN_FAR MEHOP [facility] 891 [place] 10:07:00 10:07:00 HANA 0520 [facility] 2019-11-27 2019-11-27 Outpatient AMBREEN_FAR MEHOP [facility] 891 [place] 03:37:00 03:37:00 HANA 0515 [facility] 2019-11-19 2019-11-19 Outpatient AMBREEN_FAR MEHOP [facility] 891 [place] 03:03:00 03:03:00 HANA 0507 [facility] 2019-11-10 2019-11-10 Outpatient LISTER_MELI MEHOP ME[facility] 891 [place] 09:08:00 09:08:00 SSA 0428 [facility] 2019-11-07 2019-11-07 Outpatient LISTER_MELI MEHOP [facility] 891 [place] 12:12:00 12:12:00 SSA 0425 [facility] 2019-11-06 2019-11-06 Outpatient LISTER_MELI MEHOP [facility] 891 [place] 04:18:00 04:18:00 SSA 0424 [facility] 2019-11-06 2019-11-06 Catie [facility] [place] - [id number] M [place] 00:00:00 00:00:00 Ary Lee, Tenriism Episco p TIRE BALANCER: 111 HOP - MEHOP al [place] F N, SCIENTIFIC MANAGER [facility] [address] Mxawell rivas , Ph. 2019-10-03 2019-10-03 Outpatient LISTER_MELI MEHOP ME[facility]OP 891 [place] 12:25:00 12:25:00 SSA 0321 [facility] 2019-08-25 2019-08-25 Outpatient LISTER_MELI MEHOP [facility] 891 [place] 10:50:00 10:50:00 SSA 0211 [facility] 2019-08-25 2019-08-25 Renuka Chemo MSBHUMIKA [place] - [id number] [place] 00:00:00 00:00:00 Joanne Pedro TIRE BALANCER: 1700 Tenriism Episc op [place] HOP - MEHOP ceasar Jaimes, [address] [address] Maxwell rivas , Ph. 2019-08-18 2019-08-18 Outpatient LISTER_MELI MEHOP ME[facility]OP 891 [place] 09:27:00 09:27:00 SSA 0204 [facility] 2019-08-17 2019-08-17 Outpatient LISTER_MELI MEHOP ME[facility]OP 891 [place] 12:59:00 12:59:00 SSA 0203 [facility] 2019-08-17 2019-08-17 Wang MSBHUMIK[facility] [place] - [id number] M [place] 00:00:00 00:00:00 Ismael Torres MD: Tenriism Epi scop 1700 HOP - MEHOP [facility], [facility], [facility] Program [address] , Ph. ([phone]) 2019-07-21 2019-07-21 Outpatient LISTER_MELI MEHOP MEHOP 891 [place] 03:06:00 03:06:00 SSA 0107 [facility] 2019-07-03 2019-07-03 Jhoan MSBHUMIK[facility] [place] - [id number] M [place] 00:00:00 00:00:00 Joanne Beauchamp CNC LATHE PROGRAMMER: [id number] Tenriism Epi scop US 59 [facility], [facility] [place] Program [address] , Ph. 2019-06-26 2019-06-26 Jhoan [place] - [id number] M [place] 00:00:00 00:00:00 Joanne Beauchamp CNC LATHE PROGRAMMER: [id number] Tenriism Epi scop US 59 [facility] A, [facility] [place] Program [address] , Ph. 2019-06-17 2019-06-17 Jhoan [place] - [id number] M [place] 00:00:00 00:00:00 Joanne Beauchamp CNC LATHE PROGRAMMER: [id number] Tenriism Epi scop US 59 [facility], [facility] [place] Program [address] , Ph. 2019-06-05 2019-06-05 Jhoan [place] - [id number] M [place] 00:00:00 00:00:00 Joanne Beauchamp CNC LATHE PROGRAMMER: [id number] Tenriism Epi scop US 59 [facility] [place] Program [address] , Ph. 2019-05-22 2019-05-22 Jhoan SL[place] - [id number] M [place] 00:00:00 00:00:00 Joanne Beauchamp CNC LATHE PROGRAMMER: [id number] Tenriism Epi scop US 59 [facility], [facility] [place] Program [address] , Ph. 2019-05-20 2019-05-20 Alesia [place] - [id number] M [place] 00:00:00 00:00:00 Joanne Siddiqui MD: 1700 Tenriism Episc op [address] [place] [address] [facility] am , Ph. 2019-05-18 2019-05-18 Wang [place] - [id number] M [place] 00:00:00 00:00:00 Ismael Torres MD: Tenriism Epi scop 17[address] [facility] [address], [facility], [facility] [place] Program [address] , Ph. ([phone]) 2019-05-01 2019-05-01 Jhoan [place] - [id number] M [place] 00:00:00 00:00:00 Joanne Beauchamp CNC LATHE PROGRAMMER: 62124 Tenriism Epi scop US 59 [facility] [place] Program [address] , Ph. 2019-04-24 2019-04-24 Jhoan SLADE [place] - [id number] M [place] 00:00:00 00:00:00 Joanne Beauchamp CNC LATHE PROGRAMMER: [id number] Tenriism Epi scop US 59 [facility] [place] Program [address] , Ph. 2019-04-22 2019-04-22 Alesia SLADE [place] - [id number] M [place] 00:00:00 00:00:00 Joanne Siddiqui MD: 1700 Tenriism Episc op [facility], [address] [address] [facility] , Ph. 2019-04-17 2019-04-17 Jhoan SL[place] - [id number] M [place] 00:00:00 00:00:00 Joanne Beauchamp CNC LATHE PROGRAMMER: [id number] Tenriism Epi scop US 59 [facility] [place] Program [address] , Ph. 2019-04-15 2019-04-15 Alesia SLADE [place] - [id number] M [place] 00:00:00 00:00:00 Joanne Siddiqui MD: 1700 Tenriism Episc op Malcolm BHUMIKA Bell, [address] [place] [address] Progr am , Ph. 2019-03-27 2019-03-27 Jhoan [place] - [id number] M [place] 00:00:00 00:00:00 Joanne Beauchamp CNC LATHE PROGRAMMER: [id number] Tenriism Epi scop US 59 [facility] [place] Program [address] , Ph. 2019-03-20 2019-03-20 Catie SL[place] - [id number] M [place] 00:00:00 00:00:00 Ary Lee, Tenriism Episco p TIRE BALANCER: 111 [facility] [place] F N, SCIENTIFIC MANAGER [facility] [address] Progr am , Ph. 2019-03-13 2019-03-13 Jhoan [place] - [id number] M [place] 00:00:00 00:00:00 Joanne Beauchamp CNC LATHE PROGRAMMER: [id number] Tenriism Epi scop US 59 [facility] [place] Program [address] , Ph. 2019-03-11 2019-03-11 Alesia SL[place] - [id number] M [place] 00:00:00 00:00:00 Joanne Siddiqui MD: 1700 Tenriism Episc op Malcolm BHUMIKA ROGERSBHUMIKA Bell, [address] [place] [address] Progr am , Ph. 2019-02-27 2019-02-27 Jhoan [place] - [id number] M [place] 00:00:00 00:00:00 Joanne Beauchamp CNC LATHE PROGRAMMER: [id number] Tenriism Epi scop US [address] [facility] [place] Program [address] , Ph. 2019-02-20 2019-02-20 Jhoan [place] - [id number] M [place] 00:00:00 00:00:00 Joanne Beauchamp da CNC LATHE PROGRAMMER: [id number] Tenriism Epi scop US 59 [facility] A, [facility] [place] Program [address] , Ph. 2019-02-12 2019-02-12 Jhoan [place] - [id number] M [place] 00:00:00 00:00:00 Joanne Beauchamp da CNC LATHE PROGRAMMER: [id number] Tenriism Epi scop US 59 [facility], [facility] [place] Program [address] , Ph. 2019-02-05 2019-02-05 Jhoan [place] - [id number] M [place] 00:00:00 00:00:00 Joanne Beauchamp da CNC LATHE PROGRAMMER: [id number] Tenriism Epi scop US 59 [facility] A, [facility] [place] Program [address] , Ph. 2019-01-30 2019-01-30 Jhoan [place] - [id number] M [place] 00:00:00 00:00:00 Joanne Beauchamp da CNC LATHE PROGRAMMER: [id number] Tenriism Epi scop US 59 [facility], [facility] [place] Program [address] , Ph. 2019-01-26 2019-01-26 Wang [place] - [id number] M [place] 00:00:00 00:00:00 Ismael Torres MD: Tenriism Epi scop 17[address] [facility] [address], [facility] [place] Program [address] , Ph. (979) 2019-01-20 2019-01-20 Jhoan [place] - [id number] M [place] 00:00:00 00:00:00 Nito Wibaux da CNC LATHE PROGRAMMER: [id number] Tenriism Epi scop US 59 [facility] A, [facility] [place] Program [address] , Ph. 2019-01-09 2019-01-09 Jhoan [place] - [id number] M [place] 00:00:00 00:00:00 Beverley Beauchamprda da CNC LATHE PROGRAMMER: [id number] Tenriism Epi scop US 59 [facility] A, [facility] [place] Program [address] , Ph. 2019-01-02 2019-01-02 Jhoan [place] - [id number] M [place] 00:00:00 00:00:00 Brianda Beauchampa da CNC LATHE PROGRAMMER: [id number] Tenriism Epi scop US 59 [facility], [facility] [place] Program [address] , Ph. 2018-12-25 2018-12-25 Jhoan [place] - [id number] M [place] 00:00:00 00:00:00 Joanne Beauchamp da CNC LATHE PROGRAMMER: 79156 Tenriism Epi scop US 59 [facility], [facility] [place] Program [address] , Ph. 2018-12-12 2018-12-12 Jhoan [place] - [id number] M [place] 00:00:00 00:00:00 Beauchamp [place]ib[place] da CNC LATHE PROGRAMMER: [id number] Tenriism Epi scop US 59 [facility], [facility] [place] Program [address] , Ph. 2018-12-05 2018-12-05 Jhoan [place] - [id number] M [place] 00:00:00 00:00:00 Brianda Beauchampa da CNC LATHE PROGRAMMER: [id number] Tenriism Epi scop US 59 [facility] A, [facility] [place] Program [address] , Ph. 2018-11-20 2018-11-20 Jhoan [place] - [id number] M [place] 00:00:00 00:00:00 Joanne Beauchamp da CNC LATHE PROGRAMMER: [id number] Tenriism Epi scop US 59 [facility] A, [facility] [place] Program [address] , Ph. 2018-11-07 2018-11-07 Jhoan SLADE [place] - [id number] M [place] 00:00:00 00:00:00 Joanne Beauchamp da CNC LATHE PROGRAMMER: [id number] Tenriism Epi scop US 59 [facility], [facility] [place] Program [address] , Ph. 2018-10-30 2018-10-30 Jhoan SLADE [place] - [id number] M at[place]or 00:00:00 00:00:00 Joanne Beauchamp da CNC LATHE PROGRAMMER: [id number] Tenriism Epi scop US 59 [facility], [facility] [place] Program [address] , Ph. 2018-10-29 2018-10-29 Alejandro [place] - [id number] 7 [place] 00:00:00 00:00:00 REHANA Golden: Joanne mccann 1700 Tenriism Episco p Fowler BHUMIKA - MSBHUMIKA ceasar Jaimes, [facility] [address] [address] Progr , Ph. 2018-10-27 2018-10-27 Wangnirmal SLADE [place] - [id number] M atagor 00:00:00 00:00:00 Ismael Torres MD: Tenriism Epi scop 1700 HOP - HOP ceasar [facility] [address], [address], [facility] [place] Program [address] , Ph. (979) 2018-10-24 2018-10-24 Jhoan [place] - [id number] M at[place] 00:00:00 00:00:00 Joanne Beauchamp CNC LATHE PROGRAMMER: [id number] Tenriism Epi scop US 59 [facility] [address], Outreac [facility] [place] Program [address] , Ph. Results Test Description Test Time Test Comments Results Result Comments Source Comprehensive metabolic 2000 panel - Serum or Plasma 2021-07 00:00:00 Test Item Value Reference Range Interpretation Comme nts Glucose [Mass/volume] in Serum or Plasma (test code = 101 mg/dL 65-99 H 2345-7) Urea nitrogen [Mass/volume] in Serum or Plasma (test 11 mg/dL 6 -24 code = 3094-0) Creatinine [Mass/volume] in Serum or Plasma (test code 0.65 mg/dL 0.57-1.00 = 2160-0) Glomerular filtration rate/1.73 sq M.predicted among 111 mL/min/1.7 3 >59 non-blacks [Volume Rate/Area] in Serum, Plasma or Blood by Creatinine-based formula (CKD-EPI) (test code = 50715-7) Glomerular filtration rate/1.73 sq M.predicted among 128 mL/min/1.7 3 >59 blacks [Volume Rate/Area] in Serum, Plasma or Blood by Creatinine-based formula (CKD-EPI) (test code = 21551-1) Urea nitrogen/Creatinine [Mass Ratio] in Serum or 17 9-23 Plasma (test code = 3097-3) Sodium [Moles/volume] in Serum or Plasma (test code = 140 mmol/L 818-506 4557-2) Potassium [Moles/volume] in Serum or Plasma (test code 4.4 mmol/L 3.5-5.2 = 2823-3) Chloride [Moles/volume] in Serum or Plasma (test code = 104 mmol/L 96-106 2075-0) Carbon dioxide, total [Moles/volume] in Serum or Plasma 22 mmol/L 20-29 (test code = 2027-9) Calcium [Mass/volume] in Serum or Plasma (test code = 8.8 mg/dL 8.7-10.2 50966-3) Protein [Mass/volume] in Serum or Plasma (test code = 7.3 g/dL 6.0-8.5 2885-2) Albumin [Mass/volume] in Serum or Plasma (test code = 4.2 g/dL 3.8-4.8 1751-7) Globulin [Mass/volume] in Serum by calculation (test 3.1 g/dL 1 .5-4.5 code = 72564-0) Albumin/Globulin [Mass Ratio] in Serum or Plasma (test 1.4 1.2-2.2 code = 1759-0) Bilirubin.total [Mass/volume] in Serum or Plasma (test 0.5 mg/dL 0.0-1.2 code = 1975-2) Alkaline phosphatase [Enzymatic activity/volume] in 72 IU/L 44 -121 Serum or Plasma (test code = 6768-6) Aspartate aminotransferase [Enzymatic activity/volume] 13 IU/L 0-40 in Serum or Plasma (test code = 1920-8) Alanine aminotransferase [Enzymatic activity/volume] in 18 IU/L 0-32 Serum or Plasma (test code = 1742-6) [facility] - Platelet poor plasma by Coagulation [id number] 00:00:00 Test Item Value Reference Range Interpretation Comments INR in Platelet poor plasma by 1.0 0.9-1.2 Coagulation assay (test code = 6301-6) Prothrombin time (PT) (test code = 10.7 sec 9.1-12.0 5902-2) aPTT in Platelet poor plasma by 30 sec 24-33 Coagulation assay (test code = 48536-7) [facility] free and total panel [Mass/volume] - Serum or [id number] 00:00:00 Test Item Value Reference Range Interpretation Comments Testosterone [Mass/volume] in Serum 22 NG/dL 8-60 or Plasma (test code = 2986-8) Testosterone Free [Mass/volume] in 2.5 pg/mL 0.0-4.2 Serum or Plasma (test code = 2991-8) [facility] IrvingGamma glutamyl transferase [Enzymatic activity/volume] in Serum or [id number] 00:00:00 Test Item Value Reference Range Interpretation Comments Gamma glutamyl transferase [Enzymatic 17 IU/L 0-60 activity/volume] in Serum or Plasma (test code = 2324-2) [facility] IrvingHepatitis A virus IgM Ab [Presence] in Serum or Plasma by [id number] 00:00:00 Test Item Value Reference Range Interpretation Comments Hepatitis A virus IgM Ab [Presence] negative negative in Serum or Plasma by Immunoassay (test code = 84625-8) [facility] IrvingDehydroepiandrosterone (DHEA) [Mass/volume] in Serum or [id number] 00:00:00 Test Item Value Reference Range Interpretation Comments Dehydroepiandrosterone (DHEA) 221 NG/dL 31-701 [Mass/volume] in Serum or Plasma (test code = 2193-1) [facility] IrvingDehydroepiandrosterone (DHEA) [Mass/volume] in Serum or [id number] 00:00:00 Test Item Value Reference Range Interpretation Comments Dehydroepiandrosterone (DHEA) 221 NG/dL 31-701 [Mass/volume] in Serum or Plasma (test code = 2193-1) [facility] IrvingDehydroepiandrosterone (DHEA) [Mass/volume] in Serum or [id number] 00:00:00 Test Item Value Reference Range Interpretation Comments Dehydroepiandrosterone (DHEA) 221 NG/dL 31-701 [Mass/volume] in Serum or Plasma (test code = 2193-1) [facility] ProgramDehydroepiandrosterone (DHEA) [Mass/volume] in Serum or [id number] 00:00:00 Test Item Value Reference Range Interpretation Comments Dehydroepiandrosterone (DHEA) 221 NG/dL 31-701 [Mass/volume] in Serum or Plasma (test code = 2193-1) [facility] IrvingComprehensive metabolic 2000 panel - Serum or [id number] 00:00:00 Test Item Value Reference Range Interpretation Comments Glucose [Mass/volume] in 99 mg/dL 65-99 Serum or Plasma (test code = 2345-7) Urea nitrogen [Mass/volume] 12 mg/dL 6-24 in Serum or Plasma (test code = 3094-0) Creatinine [Mass/volume] in 0.67 mg/dL 0.57-1.00 Serum or Plasma (test code = 2160-0) Glomerular filtration 110 mL/min/1.73 >59 rate/1.73 sq M.predicted among non-blacks [Volume Rate/Area] in Serum, Plasma or Blood by Creatinine-based formula (CKD-EPI) (test code = 98375-3) Glomerular filtration 127 mL/min/1.73 >59 rate/1.73 sq M.predicted among blacks [Volume Rate/Area] in Serum, Plasma or Blood by Creatinine-based formula (CKD-EPI) (test code = 79084-8) Urea nitrogen/Creatinine 18 9-23 [Mass Ratio] in Serum or Plasma (test code = 3097-3) Sodium [Moles/volume] in 139 mmol/L 134-144 Serum or Plasma (test code = 2951-2) Potassium [Moles/volume] in 4.9 mmol/L 3.5-5.2 Serum or Plasma (test code = 2823-3) Chloride [Moles/volume] in 101 mmol/L 96-106 Serum or Plasma (test code = 2074-0) Carbon dioxide, total 24 mmol/L 20-29 [Moles/volume] in Serum or Plasma (test code = 2027-9) Calcium [Mass/volume] in 9.2 mg/dL 8.7-10.2 Serum or Plasma (test code = 46751-1) Protein [Mass/volume] in 7.5 g/dL 6.0-8.5 Serum or Plasma (test code = 2885-2) Albumin [Mass/volume] in 4.4 g/dL 3.8-4.8 Serum or Plasma (test code = 175-7) Globulin [Mass/volume] in 3.1 g/dL 1.5-4.5 Serum by calculation (test code = 17480-1) Albumin/Globulin [Mass Ratio] 1.4 1.2-2.2 in Serum or Plasma (test code = 1759-0) Bilirubin.total [Mass/volume] 0.9 mg/dL 0.0-1.2 in Serum or Plasma (test code = 1974-2) Alkaline phosphatase 75 IU/L 44-121 [Enzymatic activity/volume] in Serum or Plasma (test code = 6768-6) Aspartate aminotransferase 32 IU/L 0-40 [Enzymatic activity/volume] in Serum or Plasma (test code = 1920-8) Alanine aminotransferase 70 IU/L 0-32 H [Enzymatic activity/volume] in Serum or Plasma (test code = 1742-6) [facility]+Cyanocobalamin [Interpretation] in Serum or [id number] 00:00:00 Test Item Value Reference Range Interpretation Comments Cobalamin (Vitamin B12) >2000 232-1245 H [Mass/volume] in Serum or Plasma (test code = 2132-9) Folate [Mass/volume] in Serum or 16.8 NG/mL >3.0 Plasma (test code = 2284-8) [facility] IrvingFollitropin and Lutropin panel [Units/volume] - Serum or [id number] 00:00:00 Test Item Value Reference Range Interpretation Comments Lutropin [Units/volume] in Serum 9.1 mIU/mL or Plasma (test code = 08544-7) Follitropin [Units/volume] in 3.9 mIU/mL Serum or Plasma (test code = 03688-9) [facility] IrvingTestosterone free and total panel [Mass/volume] - Serum or [id number] 00:00:00 Test Item Value Reference Range Interpretation Comments Testosterone [Mass/volume] in Serum 50 NG/dL 8-60 or Plasma (test code = 2986-8) Testosterone Free [Mass/volume] in 6.3 pg/mL 0.0-4.2 H Serum or Plasma (test code = 2991-8) [facility] IrvingProlactin [Mass/volume] in Serum or [id number] 00:00:00 Test Item Value Reference Range Interpretation Comments Prolactin [Mass/volume] in Serum 14.6 NG/mL 4.8-23.3 or Plasma (test code = 2842-3) [facility] IrvingEstradiol (E2) [Mass/volume] in Serum or [id number] 00:00:00 Test Item Value Reference Range Interpretation Comments Estradiol (E2) [Mass/volume] in 144.0 pg/mL Serum or Plasma (test code = 2243-4) [facility] IrvingNuclear Ab [Presence] in Serum 2021-07-22 00:00:00 Test Item Value Reference Range Interpretation Comments Nuclear Ab [Presence] in Serum (test negative negative code = 8061-4) [facility] IrvingProgesterone [Mass/volume] in Serum or [id number] 00:00:00 Test Item Value Reference Range Interpretation Comments Progesterone [Mass/volume] in Serum or <0.1 Plasma (test code = 2839-9) [facility] [Moles/volume] in Serum or [id number] 00:00:00 Test Item Value Reference Range Interpretation Comments Sex hormone binding globulin 26.7 nmol/L 24.6-122.0 [Moles/volume] in Serum or Plasma (test code = 49016-9) [facility] IrvingComprehensive metabolic 2000 panel - Serum or [id number] 00:00:00 Test Item Value Reference Range Interpretation Comments Glucose [Mass/volume] in 99 mg/dL 65-99 Serum or Plasma (test code = 2345-7) Urea nitrogen [Mass/volume] 12 mg/dL 6-24 in Serum or Plasma (test code = 3094-0) Creatinine [Mass/volume] in 0.67 mg/dL 0.57-1.00 Serum or Plasma (test code = 2160-0) Glomerular filtration 110 mL/min/1.73 >59 rate/1.73 sq M.predicted among non-blacks [Volume Rate/Area] in Serum, Plasma or Blood by Creatinine-based formula (CKD-EPI) (test code = 65388-1) Glomerular filtration 127 mL/min/1.73 >59 rate/1.73 sq M.predicted among blacks [Volume Rate/Area] in Serum, Plasma or Blood by Creatinine-based formula (CKD-EPI) (test code = 40228-1) Urea nitrogen/Creatinine 18 9-23 [Mass Ratio] in Serum or Plasma (test code = 3097-3) Sodium [Moles/volume] in 139 mmol/L 134-144 Serum or Plasma (test code = 2951-2) Potassium [Moles/volume] in 4.9 mmol/L 3.5-5.2 Serum or Plasma (test code = 2823-3) Chloride [Moles/volume] in 101 mmol/L 96-106 Serum or Plasma (test code = 2075-0) Carbon dioxide, total 24 mmol/L 20-29 [Moles/volume] in Serum or Plasma (test code = 2027-9) Calcium [Mass/volume] in 9.2 mg/dL 8.7-10.2 Serum or Plasma (test code = 21635-4) Protein [Mass/volume] in 7.5 g/dL 6.0-8.5 Serum or Plasma (test code = 2885-2) Albumin [Mass/volume] in 4.4 g/dL 3.8-4.8 Serum or Plasma (test code = 1751-7) Globulin [Mass/volume] in 3.1 g/dL 1.5-4.5 Serum by calculation (test code = 77011-6) Albumin/Globulin [Mass Ratio] 1.4 1.2-2.2 in Serum or Plasma (test code = 1759-0) Bilirubin.total [Mass/volume] 0.9 mg/dL 0.0-1.2 in Serum or Plasma (test code = 1974-) Alkaline phosphatase 75 IU/L 44-121 [Enzymatic activity/volume] in Serum or Plasma (test code = 6768-6) Aspartate aminotransferase 32 IU/L 0-40 [Enzymatic activity/volume] in Serum or Plasma (test code = 192-8) Alanine aminotransferase 70 IU/L 0-32 H [Enzymatic activity/volume] in Serum or Plasma (test code = 1742-6) [facility]Cyanocobalamin [Interpretation] in Serum or [id number] 00:00:00 Test Item Value Reference Range Interpretation Comments Cobalamin (Vitamin B12) >2000 232-1245 H [Mass/volume] in Serum or Plasma (test code = 2132-9) Folate [Mass/volume] in Serum or 16.8 NG/mL >3.0 Plasma (test code = 2284-8) [facility] ProgramFollitropin and Lutropin panel [Units/volume] - Serum or [id number] 00:00:00 Test Item Value Reference Range Interpretation Comments Lutropin [Units/volume] in Serum 9.1 mIU/mL or Plasma (test code = 50836-3) Follitropin [Units/volume] in 3.9 mIU/mL Serum or Plasma (test code = 03741-3) [facility] IrvingTestosterone free and total panel [Mass/volume] - Serum or [id number] 00:00:00 Test Item Value Reference Range Interpretation Comments Testosterone [Mass/volume] in Serum 50 NG/dL 8-60 or Plasma (test code = 2986-8) Testosterone Free [Mass/volume] in 6.3 pg/mL 0.0-4.2 H Serum or Plasma (test code = 2991-8) [facility] IrvingProlactin [Mass/volume] in Serum or [id number] 00:00:00 Test Item Value Reference Range Interpretation Comments Prolactin [Mass/volume] in Serum 14.6 NG/mL 4.8-23.3 or Plasma (test code = 2842-3) [facility] IrvingEstradiol (E2) [Mass/volume] in Serum or [id number] 00:00:00 Test Item Value Reference Range Interpretation Comments Estradiol (E2) [Mass/volume] in 144.0 pg/mL Serum or Plasma (test code = 2243-4) [facility] IrvingNuclear Ab [Presence] in Serum 2021-07-22 00:00:00 Test Item Value Reference Range Interpretation Comments Nuclear Ab [Presence] in Serum (test negative negative code = 8061-4) [facility] IrvingProgesterone [Mass/volume] in Serum or [id number] 00:00:00 Test Item Value Reference Range Interpretation Comments Progesterone [Mass/volume] in Serum or <0.1 Plasma (test code = 2839-9) [facility] globulin [Moles/volume] in Serum or [id number] 00:00:00 Test Item Value Reference Range Interpretation Comments Sex hormone binding globulin 26.7 nmol/L 24.6-122.0 [Moles/volume] in Serum or Plasma (test code = 84848-0) [facility] IrvingComprehensive metabolic 2000 panel - Serum or [id number] 00:00:00 Test Item Value Reference Range Interpretation Comments Glucose [Mass/volume] in 99 mg/dL 65-99 Serum or Plasma (test code = 2345-7) Urea nitrogen [Mass/volume] 12 mg/dL 6-24 in Serum or Plasma (test code = 3094-0) Creatinine [Mass/volume] in 0.67 mg/dL 0.57-1.00 Serum or Plasma (test code = 2160-0) Glomerular filtration 110 mL/min/1.73 >59 rate/1.73 sq M.predicted among non-blacks [Volume Rate/Area] in Serum, Plasma or Blood by Creatinine-based formula (CKD-EPI) (test code = 69853-3) Glomerular filtration 127 mL/min/1.73 >59 rate/1.73 sq M.predicted among blacks [Volume Rate/Area] in Serum, Plasma or Blood by Creatinine-based formula (CKD-EPI) (test code = 35621-6) Urea nitrogen/Creatinine 18 9-23 [Mass Ratio] in Serum or Plasma (test code = 3097-3) Sodium [Moles/volume] in 139 mmol/L 134-144 Serum or Plasma (test code = 2951-2) Potassium [Moles/volume] in 4.9 mmol/L 3.5-5.2 Serum or Plasma (test code = 2823-3) Chloride [Moles/volume] in 101 mmol/L 96-106 Serum or Plasma (test code = 2075-0) Carbon dioxide, total 24 mmol/L 20-29 [Moles/volume] in Serum or Plasma (test code = 2027-9) Calcium [Mass/volume] in 9.2 mg/dL 8.7-10.2 Serum or Plasma (test code = 56240-8) Protein [Mass/volume] in 7.5 g/dL 6.0-8.5 Serum or Plasma (test code = 2885-2) Albumin [Mass/volume] in 4.4 g/dL 3.8-4.8 Serum or Plasma (test code = 1751-7) Globulin [Mass/volume] in 3.1 g/dL 1.5-4.5 Serum by calculation (test code = 41644-2) Albumin/Globulin [Mass Ratio] 1.4 1.2-2.2 in Serum or Plasma (test code = 1759-0) Bilirubin.total [Mass/volume] 0.9 mg/dL 0.0-1.2 in Serum or Plasma (test code = 1975-2) Alkaline phosphatase 75 IU/L 44-121 [Enzymatic activity/volume] in Serum or Plasma (test code = 6768-6) Aspartate aminotransferase 32 IU/L 0-40 [Enzymatic activity/volume] in Serum or Plasma (test code = 1920-8) Alanine aminotransferase 70 IU/L 0-32 H [Enzymatic activity/volume] in Serum or Plasma (test code = 1742-6) [facility] IrvingFolate+Cyanocobalamin [Interpretation] in Serum or [id number] 00:00:00 Test Item Value Reference Range Interpretation Comments Cobalamin (Vitamin B12) >2000 232-1245 H [Mass/volume] in Serum or Plasma (test code = 2132-9) Folate [Mass/volume] in Serum or 16.8 NG/mL >3.0 Plasma (test code = 2284-8) [facility] IrvingFollitropin and Lutropin panel [Units/volume] - Serum or [id number] 00:00:00 Test Item Value Reference Range Interpretation Comments Lutropin [Units/volume] in Serum 9.1 mIU/mL or Plasma (test code = 16330-4) Follitropin [Units/volume] in 3.9 mIU/mL Serum or Plasma (test code = 77270-3) [facility] IrvingTestosterone free and total panel [Mass/volume] - Serum or [id number] 00:00:00 Test Item Value Reference Range Interpretation Comments Testosterone [Mass/volume] in Serum 50 NG/dL 8-60 or Plasma (test code = 2986-8) Testosterone Free [Mass/volume] in 6.3 pg/mL 0.0-4.2 H Serum or Plasma (test code = 2991-8) [facility] IrvingProlactin [Mass/volume] in Serum or [id number] 00:00:00 Test Item Value Reference Range Interpretation Comments Prolactin [Mass/volume] in Serum 14.6 NG/mL 4.8-23.3 or Plasma (test code = 2842-3) [facility] IrvingEstradiol (E2) [Mass/volume] in Serum or [id number] 00:00:00 Test Item Value Reference Range Interpretation Comments Estradiol (E2) [Mass/volume] in 144.0 pg/mL Serum or Plasma (test code = 2243-4) [facility] IrvingN[facility] Ab [Presence] in Serum 2021-07-22 00:00:00 Test Item Value Reference Range Interpretation Comments Nuclear Ab [Presence] in Serum (test negative negative code = 8061-4) [facility] IrvingProgesterone [Mass/volume] in Serum or [id number] 00:00:00 Test Item Value Reference Range Interpretation Comments Progesterone [Mass/volume] in Serum or <0.1 Plasma (test code = 2839-9) [facility] globulin [Moles/volume] in Serum or [id number] 00:00:00 Test Item Value Reference Range Interpretation Comments Sex hormone binding globulin 26.7 nmol/L 24.6-122.0 [Moles/volume] in Serum or Plasma (test code = 29073-8) [facility] IrvingCom[facility] 2000 panel - Serum or [id number] 00:00:00 Test Item Value Reference Range Interpretation Comments Glucose [Mass/volume] in 99 mg/dL 65-99 Serum or Plasma (test code = 2345-7) Urea nitrogen [Mass/volume] 12 mg/dL 6-24 in Serum or Plasma (test code = 3094-0) Creatinine [Mass/volume] in 0.67 mg/dL 0.57-1.00 Serum or Plasma (test code = 2160-0) Glomerular filtration 110 mL/min/1.73 >59 rate/1.73 sq M.predicted among non-blacks [Volume Rate/Area] in Serum, Plasma or Blood by Creatinine-based formula (CKD-EPI) (test code = 54953-2) Glomerular filtration 127 mL/min/1.73 >59 rate/1.73 sq M.predicted among blacks [Volume Rate/Area] in Serum, Plasma or Blood by Creatinine-based formula (CKD-EPI) (test code = 12194-9) Urea nitrogen/Creatinine 18 9-23 [Mass Ratio] in Serum or Plasma (test code = 3097-3) Sodium [Moles/volume] in 139 mmol/L 134-144 Serum or Plasma (test code = 2951-2) Potassium [Moles/volume] in 4.9 mmol/L 3.5-5.2 Serum or Plasma (test code = 2823-3) Chloride [Moles/volume] in 101 mmol/L 96-106 Serum or Plasma (test code = 2075-0) Carbon dioxide, total 24 mmol/L 20-29 [Moles/volume] in Serum or Plasma (test code = 2027-) Calcium [Mass/volume] in 9.2 mg/dL 8.7-10.2 Serum or Plasma (test code = 16190-5) Protein [Mass/volume] in 7.5 g/dL 6.0-8.5 Serum or Plasma (test code = 2885-2) Albumin [Mass/volume] in 4.4 g/dL 3.8-4.8 Serum or Plasma (test code = 1751-7) Globulin [Mass/volume] in 3.1 g/dL 1.5-4.5 Serum by calculation (test code = 91947-4) Albumin/Globulin [Mass Ratio] 1.4 1.2-2.2 in Serum or Plasma (test code = 1759-0) Bilirubin.total [Mass/volume] 0.9 mg/dL 0.0-1.2 in Serum or Plasma (test code = 1974-) Alkaline phosphatase 75 IU/L 44-121 [Enzymatic activity/volume] in Serum or Plasma (test code = 6768-6) Aspartate aminotransferase 32 IU/L 0-40 [Enzymatic activity/volume] in Serum or Plasma (test code = 192-8) Alanine aminotransferase 70 IU/L 0-32 H [Enzymatic activity/volume] in Serum or Plasma (test code = 174-6) [facility] ProgramFolate+Cyanocobalamin [Interpretation] in Serum or [id number] 00:00:00 Test Item Value Reference Range Interpretation Comments Cobalamin (Vitamin B12) >2000 232-1245 H [Mass/volume] in Serum or Plasma (test code = 2132-9) Folate [Mass/volume] in Serum or 16.8 NG/mL >3.0 Plasma (test code = 2284-8) [facility] IrvingFollitropin and Lutropin panel [Units/volume] - Serum or [id number] 00:00:00 Test Item Value Reference Range Interpretation Comments Lutropin [Units/volume] in Serum 9.1 mIU/mL or Plasma (test code = 70313-5) Follitropin [Units/volume] in 3.9 mIU/mL Serum or Plasma (test code = 29220-5) [facility] IrvingTestosterone free and total panel [Mass/volume] - Serum or [id number] 00:00:00 Test Item Value Reference Range Interpretation Comments Testosterone [Mass/volume] in Serum 50 NG/dL 8-60 or Plasma (test code = 2986-8) Testosterone Free [Mass/volume] in 6.3 pg/mL 0.0-4.2 H Serum or Plasma (test code = 2991-8) [facility] IrvingProlactin [Mass/volume] in Serum or [id number] 00:00:00 Test Item Value Reference Range Interpretation Comments Prolactin [Mass/volume] in Serum 14.6 NG/mL 4.8-23.3 or Plasma (test code = 2842-3) [facility] IrvingEstradiol (E2) [Mass/volume] in Serum or [id number] 00:00:00 Test Item Value Reference Range Interpretation Comments Estradiol (E2) [Mass/volume] in 144.0 pg/mL Serum or Plasma (test code = 2243-4) [facility] IrvingNuclear Ab [Presence] in Serum 2021-07-22 00:00:00 Test Item Value Reference Range Interpretation Comments Nuclear Ab [Presence] in Serum (test negative negative code = 8061-4) [facility] IrvingProgesterone [Mass/volume] in Serum or [id number] 00:00:00 Test Item Value Reference Range Interpretation Comments Progesterone [Mass/volume] in Serum or <0.1 Plasma (test code = 2839-9) [facility] globulin [Moles/volume] in Serum or [id number] 00:00:00 Test Item Value Reference Range Interpretation Comments Sex hormone binding globulin 26.7 nmol/L 24.6-122.0 [Moles/volume] in Serum or Plasma (test code = 44327-0) [facility] Irvinginfluenza virus A + B and SARS CoV 2 (COVID-19) and RSV RNA panel, TEGAN+probe, respiratory [id number] 12:23:18 Test Item Value Reference Range Interpretation Comments Influenza A (test code = Influenza negative A) Influenza B (test code = Influenza negative B) RSV (test code = RSV) negative Sars Cov 2 (test code = Sars Cov 2) negative [facility] + B and SARS CoV 2 (COVID-19) and RSV RNA panel, TEGAN+probe, respiratory [id number] 12:23:18 Test Item Value Reference Range Interpretation Comments Influenza A (test code = Influenza negative A) Influenza B (test code = Influenza negative B) RSV (test code = RSV) negative Sars Cov 2 (test code = Sars Cov 2) negative [facility] virus A + B and SARS CoV 2 (COVID-19) and RSV RNA panel, TEGAN+probe, respiratory [id number] 12:23:18 Test Item Value Reference Range Interpretation Comments Influenza A (test code = Influenza negative A) Influenza B (test code = Influenza negative B) RSV (test code = RSV) negative Sars Cov 2 (test code = Sars Cov 2) negative [facility] virus A + B and SARS CoV 2 (COVID-19) and RSV RNA panel, TEGAN+probe, respiratory [id number] 12:23:18 Test Item Value Reference Range Interpretation Comments Influenza A (test code = Influenza negative A) Influenza B (test code = Influenza negative B) RSV (test code = RSV) negative Sars Cov 2 (test code = Sars Cov 2) negative [facility] virus A + B and SARS CoV 2 (COVID-19) and RSV RNA panel, TEGAN+probe, respiratory [id number] 12:23:18 Test Item Value Reference Range Interpretation Comments Influenza A (test code = Influenza negative A) Influenza B (test code = Influenza negative B) RSV (test code = RSV) negative Sars Cov 2 (test code = Sars Cov 2) negative [facility]influ[facility] virus A + B and SARS CoV 2 (COVID-19) and RSV RNA panel, TEGAN+probe, respiratory [id number] 12:23:18 Test Item Value Reference Range Interpretation Comments Influenza A (test code = Influenza negative A) Influenza B (test code = Influenza negative B) RSV (test code = RSV) negative Sars Cov 2 (test code = Sars Cov 2) negative [facility] ProgramBacterial vaginosis and vaginitis DNA panel - Vaginal fluid by Probe with signal [id number] 00:00:00 Test Item Value Reference Range Interpretation Comments Atopobium vaginae DNA [Presence] in tnp Vaginal fluid by TEGAN with probe detection (test code = 16051-1) Bacterial vaginosis associated tnp bacterium 2 DNA [Presence] in Vaginal fluid by TEGAN with probe detection (test code = 48093-5) Megasphaera sp type 1 DNA [Presence] in tnp Vaginal fluid by TEGAN with probe detection (test code = 51786-6) Shelley albicans DNA [Presence] in tnp Vaginal fluid by TEGAN with probe detection (test code = 49219-9) Shelley glabrata DNA [Presence] in tnp Vaginal fluid by TEGAN with probe detection (test code = 79405-5) Shelley sp DNA [Presence] in Vaginal tnp fluid by TEGAN with probe detection (test code = 90108-8) Shelley lusitaniae DNA [Presence] in tnp Vaginal fluid by TEGAN with probe detection (test code = 19100-0) Shelley krusei DNA [Presence] in tnp Vaginal fluid by TEGAN with probe detection (test code = 62747-9) Trichomonas vaginalis DNA [Presence] in tnp Vaginal fluid by TEGAN with probe detection (test code = 15497-7) [facility] Programrequest [id number] 00:00:00 Test Item Value Reference Range Interpretation Comments request problem (test code = request tnp problem) [facility] vaginosis and vaginitis DNA panel - Vaginal fluid by Probe with signal [id number] 00:00:00 Test Item Value Reference Range Interpretation Comments Atopobium vaginae DNA [Presence] in tnp Vaginal fluid by TEGAN with probe detection (test code = 96663-6) Bacterial vaginosis associated tnp bacterium 2 DNA [Presence] in Vaginal fluid by TEGAN with probe detection (test code = 99479-7) Megasphaera sp type 1 DNA [Presence] in tnp Vaginal fluid by TEGAN with probe detection (test code = 67260-5) Shelley albicans DNA [Presence] in tnp Vaginal fluid by TEGAN with probe detection (test code = 40762-1) Shelley glabrata DNA [Presence] in tnp Vaginal fluid by TEGAN with probe detection (test code = 19155-2) Shelley sp DNA [Presence] in Vaginal tnp fluid by TEGAN with probe detection (test code = 65521-1) Shelley lusitaniae DNA [Presence] in tnp Vaginal fluid by TEGAN with probe detection (test code = 87575-1) Shelley krusei DNA [Presence] in tnp Vaginal fluid by TEGAN with probe detection (test code = 99932-6) Trichomonas vaginalis DNA [Presence] in tnp Vaginal fluid by TEGAN with probe detection (test code = 71891-4) [facility] Programrequest [id number] 00:00:00 Test Item Value Reference Range Interpretation Comments request problem (test code = request tnp problem) [facility] vaginosis and vaginitis DNA panel - Vaginal fluid by Probe with signal [id number] 00:00:00 Test Item Value Reference Range Interpretation Comments Atopobium vaginae DNA [Presence] in tnp Vaginal fluid by TEGAN with probe detection (test code = 39636-4) Bacterial vaginosis associated tnp bacterium 2 DNA [Presence] in Vaginal fluid by TEGAN with probe detection (test code = 56280-9) Megasphaera sp type 1 DNA [Presence] in tnp Vaginal fluid by TEGAN with probe detection (test code = 51193-3) Shelley albicans DNA [Presence] in tnp Vaginal fluid by TEGAN with probe detection (test code = 21134-5) Shelley glabrata DNA [Presence] in tnp Vaginal fluid by TEGAN with probe detection (test code = 33545-3) Shelley sp DNA [Presence] in Vaginal tnp fluid by TEGAN with probe detection (test code = 01810-6) Shelley lusitaniae DNA [Presence] in tnp Vaginal fluid by TEGAN with probe detection (test code = 80032-4) Shelley krusei DNA [Presence] in tnp Vaginal fluid by TEGAN with probe detection (test code = 78609-4) Trichomonas vaginalis DNA [Presence] in tnp Vaginal fluid by TEGAN with probe detection (test code = 22975-7) [facility] [id number] 00:00:00 Test Item Value Reference Range Interpretation Comments request problem (test code = request tnp problem) [facility] ProgramBacterial vaginosis and vaginitis DNA panel - Vaginal fluid by Probe with signal [id number] 00:00:00 Test Item Value Reference Range Interpretation Comments Atopobium vaginae DNA [Presence] in tnp Vaginal fluid by TEGAN with probe detection (test code = 37688-0) Bacterial vaginosis associated tnp bacterium 2 DNA [Presence] in Vaginal fluid by TEGAN with probe detection (test code = 19224-2) Megasphaera sp type 1 DNA [Presence] in tnp Vaginal fluid by TEGAN with probe detection (test code = 79413-5) Shelley albicans DNA [Presence] in tnp Vaginal fluid by TEGAN with probe detection (test code = 81166-5) Shelley glabrata DNA [Presence] in tnp Vaginal fluid by TEGAN with probe detection (test code = 67123-4) Shelley sp DNA [Presence] in Vaginal tnp fluid by TEGAN with probe detection (test code = 32352-7) Shelley lusitaniae DNA [Presence] in tnp Vaginal fluid by TEGAN with probe detection (test code = 30159-1) Shelley krusei DNA [Presence] in tnp Vaginal fluid by TEGAN with probe detection (test code = 12895-0) Trichomonas vaginalis DNA [Presence] in tnp Vaginal fluid by TEGAN with probe detection (test code = 47022-9) [facility] [id number] 00:00:00 Test Item Value Reference Range Interpretation Comments request problem (test code = request tnp problem) [facility] vaginosis and vaginitis DNA panel - Vaginal fluid by Probe with signal [id number] 00:00:00 Test Item Value Reference Range Interpretation Comments Atopobium vaginae DNA [Presence] in tnp Vaginal fluid by TEGAN with probe detection (test code = 48217-7) Bacterial vaginosis associated tnp bacterium 2 DNA [Presence] in Vaginal fluid by TEGAN with probe detection (test code = 96926-0) Megasphaera sp type 1 DNA [Presence] in tnp Vaginal fluid by TEGAN with probe detection (test code = 34226-3) Shelley albicans DNA [Presence] in tnp Vaginal fluid by TEGAN with probe detection (test code = 34070-9) Shelley glabrata DNA [Presence] in tnp Vaginal fluid by TEGAN with probe detection (test code = 72038-7) Shelley sp DNA [Presence] in Vaginal tnp fluid by TEGAN with probe detection (test code = 02270-2) Shelley lusitaniae DNA [Presence] in tnp Vaginal fluid by TEGAN with probe detection (test code = 91503-6) Shelley krusei DNA [Presence] in tnp Vaginal fluid by TEGAN with probe detection (test code = 27602-6) Trichomonas vaginalis DNA [Presence] in tnp Vaginal fluid by TEGAN with probe detection (test code = 00833-9) [facility] Programrequest [id number] 00:00:00 Test Item Value Reference Range Interpretation Comments request problem (test code = request tnp problem) [facility] + reflex HPV 2021-07-05 00:00:00 Test Item Value Reference Range Interpretation Comments age gdln acog testing (test code = 30-65 age gdln acog testing) Cytology report of Cervical or comment vaginal smear or scraping Cyto stain (test code = 78508-3) Statement of adequacy comment [Interpretation] of Cervical or vaginal smear or scraping by Cyto stain (test code = 27157-0) Senior Analysis Specialist who read Cyto stain of comment Cervical or vaginal smear or scraping (test code = 17599-4) Microscopic observation [Identifier] . in Unspecified specimen by Other stain (test code = 24985-3) note: (test code = note:) comment Cytology report of Cervical or comment vaginal smear or scraping Cyto stain.thin prep (test code = 58868-4) Human papilloma virus negative negative 16+18+31+33+35+39+45+51+52+56+58+59+ 66+68 DNA [Presence] in Cervix by Probe with signal amplification (test code = 76922-3) Chlamydia trachomatis rRNA negative negative [Presence] in Cervix by TEGAN with probe detection (test code = 38026-5) Neisseria gonorrhoeae rRNA negative negative [Presence] in Cervix by TEGAN with probe detection (test code = 84039-9) [facility], IG + CT/NG + reflex HPV 2021-07-05 00:00:00 Test Item Value Reference Range Interpretation Comments age gdln acog testing (test code = 30-65 age gdln acog testing) Cytology report of Cervical or comment vaginal smear or scraping Cyto stain (test code = 32587-3) Statement of adequacy comment [Interpretation] of Cervical or vaginal smear or scraping by Cyto stain (test code = 35151-7) Senior Analysis Specialist who read Cyto stain of comment Cervical or vaginal smear or scraping (test code = 75815-9) Microscopic observation [Identifier] . in Unspecified specimen by Other stain (test code = 04770-8) note: (test code = note:) comment Cytology report of Cervical or comment vaginal smear or scraping Cyto stain.thin prep (test code = 90732-3) Human papilloma virus negative negative 16+18+31+33+35+39+45+51+52+56+58+59+ 66+68 DNA [Presence] in Cervix by Probe with signal amplification (test code = 36328-2) Chlamydia trachomatis rRNA negative negative [Presence] in Cervix by TEGAN with probe detection (test code = 83728-9) Neisseria gonorrhoeae rRNA negative negative [Presence] in Cervix by TEGAN with probe detection (test code = 04766-5) [facility], IG + CT/NG + reflex HPV 2021-07-05 00:00:00 Test Item Value Reference Range Interpretation Comments age gdln acog testing (test code = 30-65 age gdln acog testing) Cytology report of Cervical or comment vaginal smear or scraping Cyto stain (test code = 69807-1) Statement of adequacy comment [Interpretation] of Cervical or vaginal smear or scraping by Cyto stain (test code = 94677-2) Senior Analysis Specialist who read Cyto stain of comment Cervical or vaginal smear or scraping (test code = 10974-7) Microscopic observation [Identifier] . in Unspecified specimen by Other stain (test code = 91362-6) note: (test code = note:) comment Cytology report of Cervical or comment vaginal smear or scraping Cyto stain.thin prep (test code = 30280-9) Human papilloma virus negative negative 16+18+31+33+35+39+45+51+52+56+58+59+ 66+68 DNA [Presence] in Cervix by Probe with signal amplification (test code = 50691-7) Chlamydia trachomatis rRNA negative negative [Presence] in Cervix by TEGAN with probe detection (test code = 30029-3) Neisseria gonorrhoeae rRNA negative negative [Presence] in Cervix by TEGAN with probe detection (test code = 25283-3) [facility] [place], IG + CT/NG + reflex HPV 2021-07-05 00:00:00 Test Item Value Reference Range Interpretation Comments age gdln acog testing (test code = 30-65 age gdln acog testing) Cytology report of Cervical or comment vaginal smear or scraping Cyto stain (test code = 35320-6) Statement of adequacy comment [Interpretation] of Cervical or vaginal smear or scraping by Cyto stain (test code = 60769-1) Senior Analysis Specialist who read Cyto stain of comment Cervical or vaginal smear or scraping (test code = 97165-8) Microscopic observation [Identifier] . in Unspecified specimen by Other stain (test code = 70096-4) note: (test code = note:) comment Cytology report of Cervical or comment vaginal smear or scraping Cyto stain.thin prep (test code = 87295-2) Human papilloma virus negative negative 16+18+31+33+35+39+45+51+52+56+58+59+ 66+68 DNA [Presence] in Cervix by Probe with signal amplification (test code = 92289-0) Chlamydia trachomatis rRNA negative negative [Presence] in Cervix by TEGAN with probe detection (test code = 29195-3) Neisseria gonorrhoeae rRNA negative negative [Presence] in Cervix by TEGAN with probe detection (test code = 83762-9) [facility] + reflex HPV 2021-07-05 00:00:00 Test Item Value Reference Range Interpretation Comments age gdln acog testing (test code = 30-65 age gdln acog testing) Cytology report of Cervical or comment vaginal smear or scraping Cyto stain (test code = 68391-8) Statement of adequacy comment [Interpretation] of Cervical or vaginal smear or scraping by Cyto stain (test code = 88921-8) Senior Analysis Specialist who read Cyto stain of comment Cervical or vaginal smear or scraping (test code = 58508-9) Microscopic observation [Identifier] . in Unspecified specimen by Other stain (test code = 54896-5) note: (test code = note:) comment Cytology report of Cervical or comment vaginal smear or scraping Cyto stain.thin prep (test code = 38363-9) Human papilloma virus negative negative 16+18+31+33+35+39+45+51+52+56+58+59+ 66+68 DNA [Presence] in Cervix by Probe with signal amplification (test code = 84610-2) Chlamydia trachomatis rRNA negative negative [Presence] in Cervix by TEGAN with probe detection (test code = 37124-1) Neisseria gonorrhoeae rRNA negative negative [Presence] in Cervix by TEGAN with probe detection (test code = 51093-5) [facility] (dipstick) panel - [id number] 16:30:18 Test Item Value Reference Range Interpretation Comments Leukocytes (test code = Leukocytes) - Nitrite (test code = Nitrite) - Urobilinogen (test code = - Urobilinogen) Protein (test code = Protein) - pH (test code = pH) 6.0 Blood (test code = Blood) - Specific [place] (test code = Specific 1.015 [place]) Ketone (test code = Ketone) - Bilirubin (test code = Bilirubin) - Glucose (test code = Glucose) - Appearance (test code = Appearance) clear Color (test code = Color) yellow [facility] macro (dipstick) panel - [id number] 16:30:18 Test Item Value Reference Range Interpretation Comments Leukocytes (test code = Leukocytes) - Nitrite (test code = Nitrite) - Urobilinogen (test code = - Urobilinogen) Protein (test code = Protein) - pH (test code = pH) 6.0 Blood (test code = Blood) - Specific [place] (test code = Specific 1.015 [place]) Ketone (test code = Ketone) - Bilirubin (test code = Bilirubin) - Glucose (test code = Glucose) - Appearance (test code = Appearance) clear Color (test code = Color) yellow [facility] macro (dipstick) panel - [id number] 16:30:18 Test Item Value Reference Range Interpretation Comments Leukocytes (test code = Leukocytes) - Nitrite (test code = Nitrite) - Urobilinogen (test code = - Urobilinogen) Protein (test code = Protein) - pH (test code = pH) 6.0 Blood (test code = Blood) - Specific [place] (test code = Specific 1.015 [place]) Ketone (test code = Ketone) - Bilirubin (test code = Bilirubin) - Glucose (test code = Glucose) - Appearance (test code = Appearance) clear Color (test code = Color) yellow [facility] macro (dipstick) panel - [id number] 16:30:18 Test Item Value Reference Range Interpretation Comments Leukocytes (test code = Leukocytes) - Nitrite (test code = Nitrite) - Urobilinogen (test code = - Urobilinogen) Protein (test code = Protein) - pH (test code = pH) 6.0 Blood (test code = Blood) - Specific [place] (test code = Specific 1.015 [place]) Ketone (test code = Ketone) - Bilirubin (test code = Bilirubin) - Glucose (test code = Glucose) - Appearance (test code = Appearance) clear Color (test code = Color) yellow [facility] macro (dipstick) panel - [id number] 16:30:18 Test Item Value Reference Range Interpretation Comments Leukocytes (test code = Leukocytes) - Nitrite (test code = Nitrite) - Urobilinogen (test code = - Urobilinogen) Protein (test code = Protein) - pH (test code = pH) 6.0 Blood (test code = Blood) - Specific [place] (test code = Specific 1.015 [place]) Ketone (test code = Ketone) - Bilirubin (test code = Bilirubin) - Glucose (test code = Glucose) - Appearance (test code = Appearance) clear Color (test code = Color) yellow [facility]LDH+phosphorus+[id number] 00:00:00 Test Item Value Reference Range Interpretation Comments Phosphate [Mass/volume] in Serum or 3.5 mg/dL 3.0-4.3 Plasma (test code = 2777-1) Magnesium [Mass/volume] in Serum or 2.0 mg/dL 1.6-2.3 Plasma (test code = 02020-4) Lactate dehydrogenase [Enzymatic 249 IU/L 119-226 H activity/volume] in Serum or Plasma (test code = 2532-0) [facility] T[facility] - Serum or [id number] 00:00:00 Test Item Value Reference Range Interpretation Comments Thyrotropin [Units/volume] in 2.000 uIU/mL 0.450-4.500 Serum or Plasma by Detection limit <= 0.005 mIU/L (test code = 86312-5) Thyroxine (T4) free 0.88 NG/dL 0.82-1.77 [Mass/volume] in Serum or Plasma (test code = 3024-7) [facility] Auto Differential panel - Blood 2021-06-30 00:00:00 Test Item Value Reference Range Interpretation Comments Leukocytes [#/volume] in Blood 8.2 x10e3/uL 3.4-10.8 by Automated count (test code = 6690-2) Erythrocytes [#/volume] in 4.88 x10e6/uL 3.77-5.28 Blood by Automated count (test code = 789-8) Hemoglobin [Mass/volume] in 14.5 g/dL 11.1-15.9 Blood (test code = 718-7) Hematocrit [Volume Fraction] of 43.5 % 34.0-46.6 Blood by Automated count (test code = 4544-3) MCV [Entitic volume] by 89 fL 79-97 Automated count (test code = 787-2) MCH [Entitic mass] by Automated 29.7 pg 26.6-33.0 count (test code = 785-6) MCHC [Mass/volume] by Automated 33.3 g/dL 31.5-35.7 count (test code = 786-4) Erythrocyte distribution width 13.1 % 11.7-15.4 [Ratio] by Automated count (test code = 788-0) Platelets [#/volume] in Blood 349 x10e3/uL 150-450 by Automated count (test code = 777-3) Neutrophils/100 leukocytes in 67 % not estab. Blood by Automated count (test code = 770-8) Lymphocytes/100 leukocytes in 22 % not estab. Blood by Automated count (test code = 736-9) Monocytes/100 leukocytes in 8 % not estab. Blood by Automated count (test code = 5905-5) Eosinophils/100 leukocytes in 3 % not estab. Blood by Automated count (test code = 713-8) Basophils/100 leukocytes in 0 % not estab. Blood by Automated count (test code = 706-2) immature cells (test code = cellular equipment installer immature cells) Neutrophils [#/volume] in Blood 5.5 x10e3/uL 1.4-7.0 by Automated count (test code = 751-8) Lymphocytes [#/volume] in Blood 1.8 x10e3/uL 0.7-3.1 by Automated count (test code = 731-0) Monocytes [#/volume] in Blood 0.6 x10e3/uL 0.1-0.9 by Automated count (test code = 742-7) Eosinophils [#/volume] in Blood 0.3 x10e3/uL 0.0-0.4 by Automated count (test code = 711-2) Basophils [#/volume] in Blood 0.0 x10e3/uL 0.0-0.2 by Automated count (test code = 704-7) Immature granulocytes/100 0 % not estab. leukocytes in Blood by Automated count (test code = 99544-5) Immature granulocytes 0.0 x10e3/uL 0.0-0.1 [#/volume] in Blood by Automated count (test code = 85275-8) Nucleated erythrocytes/100 cellular equipment installer leukocytes [Ratio] in Blood by Automated count (test code = 24802-5) Morphology [Interpretation] in cellular equipment installer Blood Narrative (test code = 60126-0) [facility] - Serum or [id number] 00:00:00 Test Item Value Reference Range Interpretation Comments Glucose [Mass/volume] in 92 mg/dL 65-99 Serum or Plasma (test code = 2345-7) Urea nitrogen [Mass/volume] 14 mg/dL 6-24 in Serum or Plasma (test code = 3094-0) Creatinine [Mass/volume] in 0.58 mg/dL 0.57-1.00 Serum or Plasma (test code = 2160-0) Glomerular filtration 116 mL/min/1.73 >59 rate/1.73 sq M.predicted among non-blacks [Volume Rate/Area] in Serum, Plasma or Blood by Creatinine-based formula (CKD-EPI) (test code = 68490-2) Glomerular filtration 133 mL/min/1.73 >59 rate/1.73 sq M.predicted among blacks [Volume Rate/Area] in Serum, Plasma or Blood by Creatinine-based formula (CKD-EPI) (test code = 31880-1) Urea nitrogen/Creatinine 24 9-23 H [Mass Ratio] in Serum or Plasma (test code = 3097-3) Sodium [Moles/volume] in 140 mmol/L 134-144 Serum or Plasma (test code = 2951-2) Potassium [Moles/volume] in 4.5 mmol/L 3.5-5.2 Serum or Plasma (test code = 2823-3) Chloride [Moles/volume] in 106 mmol/L 96-106 Serum or Plasma (test code = 2075-0) Carbon dioxide, total 22 mmol/L 20-29 [Moles/volume] in Serum or Plasma (test code = 2027-9) Calcium [Mass/volume] in 9.0 mg/dL 8.7-10.2 Serum or Plasma (test code = 01169-2) Protein [Mass/volume] in 7.3 g/dL 6.0-8.5 Serum or Plasma (test code = 2885-2) Albumin [Mass/volume] in 4.5 g/dL 3.8-4.8 Serum or Plasma (test code = 1751-7) Globulin [Mass/volume] in 2.8 g/dL 1.5-4.5 Serum by calculation (test code = 86665-6) Albumin/Globulin [Mass Ratio] 1.6 1.2-2.2 in Serum or Plasma (test code = 1759-0) Bilirubin.total [Mass/volume] 0.5 mg/dL 0.0-1.2 in Serum or Plasma (test code = 1975-2) Alkaline phosphatase 65 IU/L 44-121 [Enzymatic activity/volume] in Serum or Plasma (test code = 6768-6) Aspartate aminotransferase 15 IU/L 0-40 [Enzymatic activity/volume] in Serum or Plasma (test code = 1920-8) Alanine aminotransferase 33 IU/L 0-32 H [Enzymatic activity/volume] in Serum or Plasma (test code = 1742-6) [facility] - Serum or Plasma 2021-06-30 00:00:00 Test Item Value Reference Range Interpretation Comments Cholesterol [Mass/volume] in Serum 158 mg/dL 100-199 or Plasma (test code = 2093-3) Triglyceride [Mass/volume] in Serum 97 mg/dL 0-149 or Plasma (test code = 2571-8) Cholesterol in HDL [Mass/volume] in 49 mg/dL >39 Serum or Plasma (test code = 2085-9) Cholesterol in VLDL [Mass/volume] 18 mg/dL 5-40 in Serum or Plasma by calculation (test code = 09785-6) Cholesterol in LDL [Mass/volume] in 91 mg/dL 0-99 Serum or Plasma by calculation (test code = 81229-8) Laboratory comment [Text] in Report cellular equipment installer Narrative (test code = 22164-0) [facility] Irving[facility] binding capacity [Mass/volume] in Serum or [id number] 00:00:00 Test Item Value Reference Range Interpretation Comments Iron binding capacity [Mass/volume] 359 ug/dL 250-450 in Serum or Plasma (test code = 2500-7) Iron binding capacity.unsaturated 287 ug/dL 131-425 [Mass/volume] in Serum or Plasma (test code = 2501-5) Iron [Mass/volume] in Serum or 72 ug/dL 27-159 Plasma (test code = 2498-4) Iron saturation [Mass Fraction] in 20 % 15-55 Serum or Plasma (test code = 2502-3) [facility] in [id number] 00:00:00 Test Item Value Reference Range Interpretation Comments Creatinine [Mass/volume] in 95.9 mg/dL not estab. Urine (test code = 2161-8) Microalbumin [Mass/volume] in 6.7 ug/mL not estab. Urine (test code = 58962-7) Albumin/Creatinine [Mass ratio] 7 mg/g creat 0-29 in Urine (test code = 9318-7) [facility] IrvingHemoglobin A1c/Hemoglobin.total in [id number] 00:00:00 Test Item Value Reference Range Interpretation Comments Hemoglobin A1c/Hemoglobin.total in 5.2 % 4.8-5.6 Blood (test code = 4548-4) Glucose mean value [Mass/volume] in 103 mg/dL Blood Estimated from glycated hemoglobin (test code = 13403-0) [facility] IrvingHepatitis C virus Ab Signal/Cutoff in Serum or Plasma by [id number] 00:00:00 Test Item Value Reference Range Interpretation Comments Hepatitis C virus Ab Signal/Cutoff in <0.1 0.0-0.9 Serum or Plasma by Immunoassay (test code = 58685-4) Hepatitis C virus Ab [Presence] in comment Serum or Plasma by Immunoassay (test code = 23767-6) [facility] IrvingAlpha-1-fetoprotein.tumor marker [Mass/volume] in Serum or [id number] 00:00:00 Test Item Value Reference Range Interpretation Comments Rnzol-2-bkjfdiekojb.tumor marker 1.8 NG/mL 0.0-8.3 [Mass/volume] in Serum or Plasma (test code = 78068-1) [facility] IrvingHepatitis B virus surface Ab [Units/volume] in [id number] 00:00:00 Test Item Value Reference Range Interpretation Comments Hepatitis B virus 3.2 mIU/mL See_Comment L [Automate d message] surface Ab The system whic h [Units/volume] in generated this result Serum (test code = [place]mitt [place] reference 88787-1) range: immunity >9.9. The reference r lissette was not used to interpret this result as normal/abnor mal. [facility] Irving25-Hydroxyvitamin D3+25- Hydroxyvitamin D2 [Mass/volume] in Serum or [id number] 00:00:00 Test Item Value Reference Range Interpretation Comments 25-Hydroxyvitamin 63.0 NG/mL 30.0-100.0 D3+25-Hydroxyvitamin D2 [Mass/volume] in Serum or Plasma (test code = 91959-8) [facility] IrvingHepatitis B virus core Ab [Presence] in Serum or Plasma by [id number] 00:00:00 Test Item Value Reference Range Interpretation Comments Hepatitis B virus core Ab [Presence] negative negative in Serum or Plasma by Immunoassay (test code = 54409-0) [facility] IrvingErythrocyte sedimentation rate by Westergren [id number] 00:00:00 Test Item Value Reference Range Interpretation Comments Erythrocyte sedimentation rate by 28 mm/HR 0-32 Westergren method (test code = 4537-7) [facility] IrvingHepatitis B virus surface Ag [Presence] in Serum or Plasma by [id number] 00:00:00 Test Item Value Reference Range Interpretation Comments Hepatitis B virus surface Ag negative negative [Presence] in Serum or Plasma by Immunoassay (test code = 5196-1) [facility] Irvingcardi[facility] assessment panel, [id number] 00:00:00 Test Item Value Reference Range Interpretation Comments Interpretation and review of laboratory note results (test code = 01813-0) Report (test code = 20302-1) . [facility] IrvingLDH+phosphorus+xuknbaamp0917-88-94 00:00:00 Test Item Value Reference Range Interpretation Comments Phosphate [Mass/volume] in Serum or 3.5 mg/dL 3.0-4.3 Plasma (test code = 2777-1) Magnesium [Mass/volume] in Serum or 2.0 mg/dL 1.6-2.3 Plasma (test code = 42270-4) Lactate dehydrogenase [Enzymatic 249 IU/L 119-226 H activity/volume] in Serum or Plasma (test code = 2532-0) [facility] IrvingFree T4 and TSH panel - Serum or [id number] 00:00:00 Test Item Value Reference Range Interpretation Comments Thyrotropin [Units/volume] in 2.000 uIU/mL 0.450-4.500 Serum or Plasma by Detection limit <= 0.005 mIU/L (test code = 17612-3) Thyroxine (T4) free 0.88 NG/dL 0.82-1.77 [Mass/volume] in Serum or Plasma (test code = 3024-7) [facility] IrvingCBC W Auto Differential panel - Blood 2021-06-30 00:00:00 Test Item Value Reference Range Interpretation Comments Leukocytes [#/volume] in Blood 8.2 x10e3/uL 3.4-10.8 by Automated count (test code = 6690-2) Erythrocytes [#/volume] in 4.88 x10e6/uL 3.77-5.28 Blood by Automated count (test code = 789-8) Hemoglobin [Mass/volume] in 14.5 g/dL 11.1-15.9 Blood (test code = 718-7) Hematocrit [Volume Fraction] of 43.5 % 34.0-46.6 Blood by Automated count (test code = 4544-3) MCV [Entitic volume] by 89 fL 79-97 Automated count (test code = 787-2) MCH [Entitic mass] by Automated 29.7 pg 26.6-33.0 count (test code = 785-6) MCHC [Mass/volume] by Automated 33.3 g/dL 31.5-35.7 count (test code = 786-4) Erythrocyte distribution width 13.1 % 11.7-15.4 [Ratio] by Automated count (test code = 788-0) Platelets [#/volume] in Blood 349 x10e3/uL 150-450 by Automated count (test code = 777-3) Neutrophils/100 leukocytes in 67 % not estab. Blood by Automated count (test code = 770-8) Lymphocytes/100 leukocytes in 22 % not estab. Blood by Automated count (test code = 736-9) Monocytes/100 leukocytes in 8 % not estab. Blood by Automated count (test code = 5905-5) Eosinophils/100 leukocytes in 3 % not estab. Blood by Automated count (test code = 713-8) Basophils/100 leukocytes in 0 % not estab. Blood by Automated count (test code = 706-2) immature cells (test code = cellular equipment installer immature cells) Neutrophils [#/volume] in Blood 5.5 x10e3/uL 1.4-7.0 by Automated count (test code = 751-8) Lymphocytes [#/volume] in Blood 1.8 x10e3/uL 0.7-3.1 by Automated count (test code = 731-0) Monocytes [#/volume] in Blood 0.6 x10e3/uL 0.1-0.9 by Automated count (test code = 742-7) Eosinophils [#/volume] in Blood 0.3 x10e3/uL 0.0-0.4 by Automated count (test code = 711-2) Basophils [#/volume] in Blood 0.0 x10e3/uL 0.0-0.2 by Automated count (test code = 704-7) Immature granulocytes/100 0 % not estab. leukocytes in Blood by Automated count (test code = 83141-2) Immature granulocytes 0.0 x10e3/uL 0.0-0.1 [#/volume] in Blood by Automated count (test code = 44698-3) Nucleated erythrocytes/100 cellular equipment installer leukocytes [Ratio] in Blood by Automated count (test code = 04268-5) Morphology [Interpretation] in cellular equipment installer Blood Narrative (test code = 64954-7) [facility] ProgramComprehensive [facility] 2000 [facility] - Serum or [id number] 00:00:00 Test Item Value Reference Range Interpretation Comments Glucose [Mass/volume] in 92 mg/dL 65-99 Serum or Plasma (test code = 2345-7) Urea nitrogen [Mass/volume] 14 mg/dL 6-24 in Serum or Plasma (test code = 3094-0) Creatinine [Mass/volume] in 0.58 mg/dL 0.57-1.00 Serum or Plasma (test code = 2160-0) Glomerular filtration 116 mL/min/1.73 >59 rate/1.73 sq M.predicted among non-blacks [Volume Rate/Area] in Serum, Plasma or Blood by Creatinine-based formula (CKD-EPI) (test code = 22006-0) Glomerular filtration 133 mL/min/1.73 >59 rate/1.73 sq M.predicted among blacks [Volume Rate/Area] in Serum, Plasma or Blood by Creatinine-based formula (CKD-EPI) (test code = 94559-6) Urea nitrogen/Creatinine 24 9-23 H [Mass Ratio] in Serum or Plasma (test code = 3097-3) Sodium [Moles/volume] in 140 mmol/L 134-144 Serum or Plasma (test code = 2951-2) Potassium [Moles/volume] in 4.5 mmol/L 3.5-5.2 Serum or Plasma (test code = 2823-3) Chloride [Moles/volume] in 106 mmol/L 96-106 Serum or Plasma (test code = 2074-0) Carbon dioxide, total 22 mmol/L 20-29 [Moles/volume] in Serum or Plasma (test code = 2027-9) Calcium [Mass/volume] in 9.0 mg/dL 8.7-10.2 Serum or Plasma (test code = 44204-4) Protein [Mass/volume] in 7.3 g/dL 6.0-8.5 Serum or Plasma (test code = 2885-2) Albumin [Mass/volume] in 4.5 g/dL 3.8-4.8 Serum or Plasma (test code = 1751-7) Globulin [Mass/volume] in 2.8 g/dL 1.5-4.5 Serum by calculation (test code = 42544-9) Albumin/Globulin [Mass Ratio] 1.6 1.2-2.2 in Serum or Plasma (test code = 1759-0) Bilirubin.total [Mass/volume] 0.5 mg/dL 0.0-1.2 in Serum or Plasma (test code = 1974-2) Alkaline phosphatase 65 IU/L 44-121 [Enzymatic activity/volume] in Serum or Plasma (test code = 6768-6) Aspartate aminotransferase 15 IU/L 0-40 [Enzymatic activity/volume] in Serum or Plasma (test code = 1920-8) Alanine aminotransferase 33 IU/L 0-32 H [Enzymatic activity/volume] in Serum or Plasma (test code = 1742-6) [facility] - [facility] or Plasma 2021-06-30 00:00:00 Test Item Value Reference Range Interpretation Comments Cholesterol [Mass/volume] in Serum 158 mg/dL 100-199 or Plasma (test code = 2093-3) Triglyceride [Mass/volume] in Serum 97 mg/dL 0-149 or Plasma (test code = 2571-8) Cholesterol in HDL [Mass/volume] in 49 mg/dL >39 Serum or Plasma (test code = 2085-9) Cholesterol in VLDL [Mass/volume] 18 mg/dL 5-40 in Serum or Plasma by calculation (test code = 31317-9) Cholesterol in LDL [Mass/volume] in 91 mg/dL 0-99 Serum or Plasma by calculation (test code = 96948-3) Laboratory comment [Text] in Report cellular equipment installer Narrative (test code = 87020-6) [facility] [Mass/volume] in Serum or [id number] 00:00:00 Test Item Value Reference Range Interpretation Comments Iron binding capacity [Mass/volume] 359 ug/dL 250-450 in Serum or Plasma (test code = 2500-7) Iron binding capacity.unsaturated 287 ug/dL 131-425 [Mass/volume] in Serum or Plasma (test code = 2501-5) Iron [Mass/volume] in Serum or 72 ug/dL 27-159 Plasma (test code = 2498-4) Iron saturation [Mass Fraction] in 20 % 15-55 Serum or Plasma (test code = 2502-3) [facility] ProgramMicroalbumin/Creatinine [Mass Ratio] in [id number] 00:00:00 Test Item Value Reference Range Interpretation Comments Creatinine [Mass/volume] in 95.9 mg/dL not estab. Urine (test code = 2161-8) Microalbumin [Mass/volume] in 6.7 ug/mL not estab. Urine (test code = 79543-5) Albumin/Creatinine [Mass ratio] 7 mg/g creat 0-29 in Urine (test code = 9318-7) [facility] IrvingHemoglobin A1c/Hemoglobin.total in [id number] 00:00:00 Test Item Value Reference Range Interpretation Comments Hemoglobin A1c/Hemoglobin.total in 5.2 % 4.8-5.6 Blood (test code = 4548-4) Glucose mean value [Mass/volume] in 103 mg/dL Blood Estimated from glycated hemoglobin (test code = 38688-3) [facility] Ab Signal/Cutoff in Serum or Plasma by [id number] 00:00:00 Test Item Value Reference Range Interpretation Comments Hepatitis C virus Ab Signal/Cutoff in <0.1 0.0-0.9 Serum or Plasma by Immunoassay (test code = 82057-0) Hepatitis C virus Ab [Presence] in comment Serum or Plasma by Immunoassay (test code = 81433-6) [facility] IrvingAlpha-1-fetoprotein.tumor marker [Mass/volume] in Serum or [id number] 00:00:00 Test Item Value Reference Range Interpretation Comments Bozov-4-kaontqnldbm.tumor marker 1.8 NG/mL 0.0-8.3 [Mass/volume] in Serum or Plasma (test code = 51911-3) [facility] IrvingHepatitis B virus surface Ab [Units/volume] in [id number] 00:00:00 Test Item Value Reference Range Interpretation Comments Hepatitis B virus 3.2 mIU/mL See_Comment L [Automate d message] surface Ab The system Intelligent Portal Systemsic h [Units/volume] in generated this result Serum (test code = transmitt [place] reference 70641-4) range: immunity >9.9. The reference r lissette was not used to interpret this result as normal/abnor mal. [facility] Irving25-Hydroxyvitamin D3+25- Hydroxyvitamin D2 [Mass/volume] in Serum or [id number] 00:00:00 Test Item Value Reference Range Interpretation Comments 25-Hydroxyvitamin 63.0 NG/mL 30.0-100.0 D3+25-Hydroxyvitamin D2 [Mass/volume] in Serum or Plasma (test code = 13537-9) [facility] IrvingHepatitis B virus core Ab [Presence] in Serum or Plasma by [id number] 00:00:00 Test Item Value Reference Range Interpretation Comments Hepatitis B virus core Ab [Presence] negative negative in Serum or Plasma by Immunoassay (test code = 61972-0) [facility] IrvingErythrocyte sedimentation rate by Westergren [id number] 00:00:00 Test Item Value Reference Range Interpretation Comments Erythrocyte sedimentation rate by 28 mm/HR 0-32 Westergren method (test code = 4537-7) [facility] IrvingHepatitis B virus surface Ag [Presence] in Serum or Plasma by [id number] 00:00:00 Test Item Value Reference Range Interpretation Comments Hepatitis B virus surface Ag negative negative [Presence] in Serum or Plasma by Immunoassay (test code = 5196-1) [facility] Irvingcardiovascular assessment panel, [id number] 00:00:00 Test Item Value Reference Range Interpretation Comments Interpretation and review of laboratory note results (test code = 48085-0) Report (test code = 80337-5) . [facility] Irvinginfluenza virus A + B and SARS CoV 2 (COVID-19) and RSV RNA panel, TEGAN+probe, respiratory [id number] 11:35:17 Test Item Value Reference Range Interpretation Comments Influenza A (test code = Influenza negative A) Influenza B (test code = Influenza negative B) RSV (test code = RSV) negative Sars Cov 2 (test code = Sars Cov 2) negative [facility] Irvinginfluenza virus A + B and SARS CoV 2 (COVID-19) and RSV RNA panel, TEGAN+probe, respiratory [id number] 11:35:17 Test Item Value Reference Range Interpretation Comments Influenza A (test code = Influenza negative A) Influenza B (test code = Influenza negative B) RSV (test code = RSV) negative Sars Cov 2 (test code = Sars Cov 2) negative [facility] IrvingUrinalysis complete W Reflex Culture panel - [id number] 00:00:00 Test Item Value Reference Range Interpretation Comments Specific gravity of Urine (test 1.019 1.005-1.030 code = 2965-2) pH of Urine by Test strip (test 6.0 5.0-7.5 code = 5803-2) Color of Urine (test code = yellow yellow 5778-6) Appearance of Urine (test code = clear clear 5767-9) Leukocyte esterase [Presence] in negative negative Urine by Test strip (test code = 5799-2) Protein [Presence] in Urine by negative negative/trace Test strip (test code = 19434-4) Glucose [Presence] in Urine (test negative negative code = 2349-9) Ketones [Presence] in Urine by negative negative Test strip (test code = 2514-8) Hemoglobin [Presence] in Urine by negative negative Test strip (test code = 5794-3) Bilirubin.total [Presence] in negative negative Urine by Test strip (test code = 5770-3) Urobilinogen [Mass/volume] in 0.2 mg/dL 0.2-1.0 Urine by Test strip (test code = 76096-7) Nitrite [Presence] in Urine by negative negative Test strip (test code = 5802-4) Microscopic observation see below: [Identifier] in Urine sediment by Light microscopy (test code = 05766-1) Leukocytes [#/area] in Urine none seen 0-5 sediment by Microscopy high power field (test code = 5821-4) Erythrocytes [#/area] in Urine 3-10 0-2 A sediment by Microscopy high power field (test code = 32746-6) Epithelial cells [#/area] in Urine 0-10 0-10 sediment by Microscopy high power field (test code = 5787-7) Epithelial cells.renal [#/area] in cellular equipment installer Urine sediment by Microscopy high power field (test code = 79495-9) Casts [Presence] in Urine sediment none seen none seen by Light microscopy (test code = 54080-4) Casts [Type] in Urine sediment by cellular equipment installer Light microscopy (test code = 87072-2) Unidentified crystals [Presence] cellular equipment installer in Urine sediment by Light microscopy (test code = 5783-6) Crystals [type] in Urine sediment cellular equipment installer by Light microscopy (test code = 5782-8) Mucus [Presence] in Urine sediment cellular equipment installer by Light microscopy (test code = 8247-9) Bacteria [#/area] in Urine none seen none seen/few sediment by Microscopy high power field (test code = 5769-5) Yeast [#/area] in Urine sediment cellular equipment installer by Microscopy high power field (test code = 5822-2) Trichomonas vaginalis [Presence] cellular equipment installer in Urine sediment by Light microscopy (test code = 5813-1) Urine sediment comments by Light cellular equipment installer microscopy Narrative (test code = 44066-9) urinalysis reflex (test code = comment urinalysis reflex) [facility] IrvingUrinalysis macro (dipstick) panel - [id number] 11:41:11 Test Item Value Reference Range Interpretation Comments Leukocytes (test code = Leukocytes) - Nitrite (test code = Nitrite) - Urobilinogen (test code = - Urobilinogen) Protein (test code = Protein) - pH (test code = pH) 6.0 Blood (test code = Blood) + Specific [place] (test code = Specific 1.020 [place]) Ketone (test code = Ketone) - Bilirubin (test code = Bilirubin) - Glucose (test code = Glucose) - Appearance (test code = Appearance) clear Color (test code = Color) yellow [facility] IrvingUrinalysis macro (dipstick) panel - [id number] 11:41:11 Test Item Value Reference Range Interpretation Comments Leukocytes (test code = Leukocytes) - Nitrite (test code = Nitrite) - Urobilinogen (test code = - Urobilinogen) Protein (test code = Protein) - pH (test code = pH) 6.0 Blood (test code = Blood) + Specific [place] (test code = Specific 1.020 [place]) Ketone (test code = Ketone) - Bilirubin (test code = Bilirubin) - Glucose (test code = Glucose) - Appearance (test code = Appearance) clear Color (test code = Color) yellow [facility] IrvingUrinalysis complete W Reflex Culture panel - [id number] 00:00:00 Test Item Value Reference Range Interpretation Comments Specific gravity of Urine (test 1.021 1.005-1.030 code = 2965-2) pH of Urine by Test strip (test 7.0 5.0-7.5 code = 5803-2) Color of Urine (test code = yellow yellow 5778-6) Appearance of Urine (test code = clear clear 5767-9) Leukocyte esterase [Presence] in negative negative Urine by Test strip (test code = 5799-2) Protein [Presence] in Urine by negative negative/trace Test strip (test code = 58447-6) Glucose [Presence] in Urine (test negative negative code = 2349-9) Ketones [Presence] in Urine by trace negative A Test strip (test code = 2514-8) Hemoglobin [Presence] in Urine by negative negative Test strip (test code = 5794-3) Bilirubin.total [Presence] in negative negative Urine by Test strip (test code = 5770-3) Urobilinogen [Mass/volume] in 0.2 mg/dL 0.2-1.0 Urine by Test strip (test code = 82549-1) Nitrite [Presence] in Urine by negative negative Test strip (test code = 5802-4) Microscopic observation see below: [Identifier] in Urine sediment by Light microscopy (test code = 61714-8) Leukocytes [#/area] in Urine none seen 0-5 sediment by Microscopy high power field (test code = 5821-4) Erythrocytes [#/area] in Urine 3-10 0-2 A sediment by Microscopy high power field (test code = 12043-9) Epithelial cells [#/area] in Urine 0-10 0-10 sediment by Microscopy high power field (test code = 5787-7) Epithelial cells.renal [#/area] in cellular equipment installer Urine sediment by Microscopy high power field (test code = 43604-6) Casts [Presence] in Urine sediment none seen none seen by Light microscopy (test code = 37564-9) Casts [Type] in Urine sediment by cellular equipment installer Light microscopy (test code = 32049-7) Unidentified crystals [Presence] cellular equipment installer in Urine sediment by Light microscopy (test code = 5783-6) Crystals [type] in Urine sediment cellular equipment installer by Light microscopy (test code = 5782-8) Mucus [Presence] in Urine sediment cellular equipment installer by Light microscopy (test code = 8247-9) Bacteria [#/area] in Urine many none seen/few A sediment by Microscopy high power field (test code = 5769-5) Yeast [#/area] in Urine sediment cellular equipment installer by Microscopy high power field (test code = 5822-2) Trichomonas vaginalis [Presence] cellular equipment installer in Urine sediment by Light microscopy (test code = 5813-1) Urine sediment comments by Light cellular equipment installer microscopy Narrative (test code = 79113-2) urinalysis reflex (test code = comment urinalysis reflex) Bacteria identified in Urine by no growth Culture (test code = 630-4) [facility] IrvingBacteria identified in Urine by [id number] 00:00:00 Test Item Value Reference Range Interpretation Comments Bacteria identified in enterococcus faecalis A Urine by Culture (test code = 630-4) Other Antibiotic comment [Susceptibility] (test code = 13868-3) [facility] IrvingLip[facility] - Serum or Plasma 2020-09-08 00:00:00 Test Item Value Reference Range Interpretation Comments Cholesterol [Mass/volume] in Serum 203 mg/dL 100-199 H or Plasma (test code = 3-3) Triglyceride [Mass/volume] in Serum 98 mg/dL 0-149 or Plasma (test code = 2571-8) Cholesterol in HDL [Mass/volume] in 38 mg/dL >39 L Serum or Plasma (test code = 2085-9) Cholesterol in VLDL [Mass/volume] 18 mg/dL 5-40 in Serum or Plasma by calculation (test code = 45457-4) Cholesterol in LDL [Mass/volume] in 147 mg/dL 0-99 H Serum or Plasma by calculation (test code = 35004-8) Laboratory comment [Text] in Report cellular equipment installer Narrative (test code = 25864-3) [facility] - Serum or Plasma 2020-09-08 00:00:00 Test Item Value Reference Range Interpretation Comments Cholesterol [Mass/volume] in Serum 203 mg/dL 100-199 H or Plasma (test code = 3-3) Triglyceride [Mass/volume] in Serum 98 mg/dL 0-149 or Plasma (test code = 2571-8) Cholesterol in HDL [Mass/volume] in 38 mg/dL >39 L Serum or Plasma (test code = 2085-9) Cholesterol in VLDL [Mass/volume] 18 mg/dL 5-40 in Serum or Plasma by calculation (test code = 21054-3) Cholesterol in LDL [Mass/volume] in 147 mg/dL 0-99 H Serum or Plasma by calculation (test code = 24208-2) Laboratory comment [Text] in Report cellular equipment installer Narrative (test code = 07024-4) [facility] - Serum or Plasma 2020-09-08 00:00:00 Test Item Value Reference Range Interpretation Comments Cholesterol [Mass/volume] in Serum 203 mg/dL 100-199 H or Plasma (test code = 3-3) Triglyceride [Mass/volume] in Serum 98 mg/dL 0-149 or Plasma (test code = 2571-8) Cholesterol in HDL [Mass/volume] in 38 mg/dL >39 L Serum or Plasma (test code = 2085-9) Cholesterol in VLDL [Mass/volume] 18 mg/dL 5-40 in Serum or Plasma by calculation (test code = 22963-5) Cholesterol in LDL [Mass/volume] in 147 mg/dL 0-99 H Serum or Plasma by calculation (test code = 22812-5) Laboratory comment [Text] in Report cellular equipment installer Narrative (test code = 34938-7) [facility] 1995 panel - Serum or Plasma 2020-09-08 00:00:00 Test Item Value Reference Range Interpretation Comments Cholesterol [Mass/volume] in Serum 203 mg/dL 100-199 H or Plasma (test code = 3-3) Triglyceride [Mass/volume] in Serum 98 mg/dL 0-149 or Plasma (test code = 2571-8) Cholesterol in HDL [Mass/volume] in 38 mg/dL >39 L Serum or Plasma (test code = 2085-9) Cholesterol in VLDL [Mass/volume] 18 mg/dL 5-40 in Serum or Plasma by calculation (test code = 62409-9) Cholesterol in LDL [Mass/volume] in 147 mg/dL 0-99 H Serum or Plasma by calculation (test code = 09205-7) Laboratory comment [Text] in Report cellular equipment installer Narrative (test code = 54976-0) [facility] W Auto Differential panel - Blood 2020-06-08 00:00:00 Test Item Value Reference Range Interpretation Comments Leukocytes [#/volume] in Blood 8.3 x10e3/uL 3.4-10.8 by Automated count (test code = 6690-2) Erythrocytes [#/volume] in 4.64 x10e6/uL 3.77-5.28 Blood by Automated count (test code = 789-8) Hemoglobin [Mass/volume] in 13.6 g/dL 11.1-15.9 Blood (test code = 718-7) Hematocrit [Volume Fraction] of 41.5 % 34.0-46.6 Blood by Automated count (test code = 4544-3) MCV [Entitic volume] by 89 fL 79-97 Automated count (test code = 787-2) MCH [Entitic mass] by Automated 29.3 pg 26.6-33.0 count (test code = 785-6) MCHC [Mass/volume] by Automated 32.8 g/dL 31.5-35.7 count (test code = 786-4) Erythrocyte distribution width 13.0 % 11.7-15.4 [Ratio] by Automated count (test code = 788-0) Platelets [#/volume] in Blood 375 x10e3/uL 150-450 by Automated count (test code = 777-3) Neutrophils/100 leukocytes in 67 % not estab. Blood by Automated count (test code = 770-8) Lymphocytes/100 leukocytes in 23 % not estab. Blood by Automated count (test code = 736-9) Monocytes/100 leukocytes in 7 % not estab. Blood by Automated count (test code = 5905-5) Eosinophils/100 leukocytes in 3 % not estab. Blood by Automated count (test code = 713-8) Basophils/100 leukocytes in 0 % not estab. Blood by Automated count (test code = 706-2) immature cells (test code = cellular equipment installer immature cells) Neutrophils [#/volume] in Blood 5.4 x10e3/uL 1.4-7.0 by Automated count (test code = 751-8) Lymphocytes [#/volume] in Blood 1.9 x10e3/uL 0.7-3.1 by Automated count (test code = 731-0) Monocytes [#/volume] in Blood 0.6 x10e3/uL 0.1-0.9 by Automated count (test code = 742-7) Eosinophils [#/volume] in Blood 0.3 x10e3/uL 0.0-0.4 by Automated count (test code = 711-2) Basophils [#/volume] in Blood 0.0 x10e3/uL 0.0-0.2 by Automated count (test code = 704-7) Immature granulocytes/100 0 % not estab. leukocytes in Blood by Automated count (test code = 71901-3) Immature granulocytes 0.0 x10e3/uL 0.0-0.1 [#/volume] in Blood by Automated count (test code = 48997-4) Nucleated erythrocytes/100 cellular equipment installer leukocytes [Ratio] in Blood by Automated count (test code = 18685-0) Morphology [Interpretation] in cellular equipment installer Blood Narrative (test code = 20371-4) [facility] IrvingComprehensive [facility] 2000 panel - Serum or [id number] 00:00:00 Test Item Value Reference Range Interpretation Comments Glucose [Mass/volume] in 92 mg/dL 65-99 Serum or Plasma (test code = 2345-7) Urea nitrogen [Mass/volume] 10 mg/dL 6-20 in Serum or Plasma (test code = 3094-0) Creatinine [Mass/volume] in 0.64 mg/dL 0.57-1.00 Serum or Plasma (test code = 2160-0) Glomerular filtration 113 mL/min/1.73 >59 rate/1.73 sq M.predicted among non-blacks [Volume Rate/Area] in Serum, Plasma or Blood by Creatinine-based formula (CKD-EPI) (test code = 49026-9) Glomerular filtration 130 mL/min/1.73 >59 rate/1.73 sq M.predicted among blacks [Volume Rate/Area] in Serum, Plasma or Blood by Creatinine-based formula (CKD-EPI) (test code = 77041-0) Urea nitrogen/Creatinine 16 9-23 [Mass Ratio] in Serum or Plasma (test code = 3097-3) Sodium [Moles/volume] in 138 mmol/L 134-144 Serum or Plasma (test code = 2951-2) Potassium [Moles/volume] in 4.5 mmol/L 3.5-5.2 Serum or Plasma (test code = 2823-3) Chloride [Moles/volume] in 104 mmol/L 96-106 Serum or Plasma (test code = 2075-0) Carbon dioxide, total 23 mmol/L 20-29 [Moles/volume] in Serum or Plasma (test code = 2027-) Calcium [Mass/volume] in 9.2 mg/dL 8.7-10.2 Serum or Plasma (test code = 84470-7) Protein [Mass/volume] in 7.4 g/dL 6.0-8.5 Serum or Plasma (test code = 2885-2) Albumin [Mass/volume] in 4.5 g/dL 3.8-4.8 Serum or Plasma (test code = 1751-7) Globulin [Mass/volume] in 2.9 g/dL 1.5-4.5 Serum by calculation (test code = 15802-5) Albumin/Globulin [Mass Ratio] 1.6 1.2-2.2 in Serum or Plasma (test code = 1759-0) Bilirubin.total [Mass/volume] 0.6 mg/dL 0.0-1.2 in Serum or Plasma (test code = 1974-2) Alkaline phosphatase 71 IU/L 39-117 [Enzymatic activity/volume] in Serum or Plasma (test code = 6768-6) Aspartate aminotransferase 22 IU/L 0-40 [Enzymatic activity/volume] in Serum or Plasma (test code = 1920-8) Alanine aminotransferase 27 IU/L 0-32 [Enzymatic activity/volume] in Serum or Plasma (test code = 1742-6) [facility] Irving[facility], [id number] 00:00:00 Test Item Value Reference Range Interpretation Comments Cholesterol [Mass/volume] in Serum 183 mg/dL 100-199 or Plasma (test code = 2093-3) Triglyceride [Mass/volume] in Serum 131 mg/dL 0-149 or Plasma (test code = 2571-8) Cholesterol in HDL [Mass/volume] in 38 mg/dL >39 L Serum or Plasma (test code = 208-9) Cholesterol in VLDL [Mass/volume] 24 mg/dL 5-40 in Serum or Plasma by calculation (test code = 49215-6) Cholesterol in LDL [Mass/volume] in 121 mg/dL 0-99 H Serum or Plasma by calculation (test code = 25346-7) Laboratory comment [Text] in Report cellular equipment installer Narrative (test code = 37601-0) Cholesterol.total/Cholesterol.in 4.8 ratio 0.0-4.4 H HDL [Mass ratio] in Serum or Plasma (test code = 9830-1) Cholesterol in LDL/Cholesterol in 3.2 ratio 0.0-3.2 HDL [Mass Ratio] in Serum or Plasma (test code = 75558-8) [facility] IrvingHemoglobin A1c/Hemoglobin.total in [id number] 00:00:00 Test Item Value Reference Range Interpretation Comments Hemoglobin A1c/Hemoglobin.total in 5.2 % 4.8-5.6 Blood (test code = 4548-4) [facility] IrvingThyrotropin [Units/volume] in Serum or Plasma by Detection limit <= 0.005 mIU/[id number] 00:00:00 Test Item Value Reference Range Interpretation Comments Thyrotropin [Units/volume] in 2.160 uIU/mL 0.450-4.500 Serum or Plasma by Detection limit <= 0.005 mIU/L (test code = 60095-7) [facility] Irving[facility] assessment panel, [id number] 00:00:00 Test Item Value Reference Range Interpretation Comments interpretation (test code = note interpretation) pdf (test code = pdf) . [facility] IrvingCBC W Auto Differential panel - Blood 2020-06-08 00:00:00 Test Item Value Reference Range Interpretation Comments Leukocytes [#/volume] in Blood 8.3 x10e3/uL 3.4-10.8 by Automated count (test code = 6690-2) Erythrocytes [#/volume] in 4.64 x10e6/uL 3.77-5.28 Blood by Automated count (test code = 789-8) Hemoglobin [Mass/volume] in 13.6 g/dL 11.1-15.9 Blood (test code = 718-7) Hematocrit [Volume Fraction] of 41.5 % 34.0-46.6 Blood by Automated count (test code = 4544-3) MCV [Entitic volume] by 89 fL 79-97 Automated count (test code = 787-2) MCH [Entitic mass] by Automated 29.3 pg 26.6-33.0 count (test code = 785-6) MCHC [Mass/volume] by Automated 32.8 g/dL 31.5-35.7 count (test code = 786-4) Erythrocyte distribution width 13.0 % 11.7-15.4 [Ratio] by Automated count (test code = 788-0) Platelets [#/volume] in Blood 375 x10e3/uL 150-450 by Automated count (test code = 777-3) Neutrophils/100 leukocytes in 67 % not estab. Blood by Automated count (test code = 770-8) Lymphocytes/100 leukocytes in 23 % not estab. Blood by Automated count (test code = 736-9) Monocytes/100 leukocytes in 7 % not estab. Blood by Automated count (test code = 5905-5) Eosinophils/100 leukocytes in 3 % not estab. Blood by Automated count (test code = 713-8) Basophils/100 leukocytes in 0 % not estab. Blood by Automated count (test code = 706-2) immature cells (test code = cellular equipment installer immature cells) Neutrophils [#/volume] in Blood 5.4 x10e3/uL 1.4-7.0 by Automated count (test code = 751-8) Lymphocytes [#/volume] in Blood 1.9 x10e3/uL 0.7-3.1 by Automated count (test code = 731-0) Monocytes [#/volume] in Blood 0.6 x10e3/uL 0.1-0.9 by Automated count (test code = 742-7) Eosinophils [#/volume] in Blood 0.3 x10e3/uL 0.0-0.4 by Automated count (test code = 711-2) Basophils [#/volume] in Blood 0.0 x10e3/uL 0.0-0.2 by Automated count (test code = 704-7) Immature granulocytes/100 0 % not estab. leukocytes in Blood by Automated count (test code = 76223-2) Immature granulocytes 0.0 x10e3/uL 0.0-0.1 [#/volume] in Blood by Automated count (test code = 84627-2) Nucleated erythrocytes/100 cellular equipment installer leukocytes [Ratio] in Blood by Automated count (test code = 94572-0) Morphology [Interpretation] in cellular equipment installer Blood Narrative (test code = 92528-6) [facility] ProgramComprehensive metabolic 2000 panel - Serum or [id number] 00:00:00 Test Item Value Reference Range Interpretation Comments Glucose [Mass/volume] in 92 mg/dL 65-99 Serum or Plasma (test code = 2345-7) Urea nitrogen [Mass/volume] 10 mg/dL 6-20 in Serum or Plasma (test code = 3094-0) Creatinine [Mass/volume] in 0.64 mg/dL 0.57-1.00 Serum or Plasma (test code = 2160-0) Glomerular filtration 113 mL/min/1.73 >59 rate/1.73 sq M.predicted among non-blacks [Volume Rate/Area] in Serum, Plasma or Blood by Creatinine-based formula (CKD-EPI) (test code = 26603-7) Glomerular filtration 130 mL/min/1.73 >59 rate/1.73 sq M.predicted among blacks [Volume Rate/Area] in Serum, Plasma or Blood by Creatinine-based formula (CKD-EPI) (test code = 39140-7) Urea nitrogen/Creatinine 16 9-23 [Mass Ratio] in Serum or Plasma (test code = 3097-3) Sodium [Moles/volume] in 138 mmol/L 134-144 Serum or Plasma (test code = 2951-2) Potassium [Moles/volume] in 4.5 mmol/L 3.5-5.2 Serum or Plasma (test code = 2823-3) Chloride [Moles/volume] in 104 mmol/L 96-106 Serum or Plasma (test code = 2075-0) Carbon dioxide, total 23 mmol/L 20-29 [Moles/volume] in Serum or Plasma (test code = 2027-9) Calcium [Mass/volume] in 9.2 mg/dL 8.7-10.2 Serum or Plasma (test code = 15690-7) Protein [Mass/volume] in 7.4 g/dL 6.0-8.5 Serum or Plasma (test code = 2885-2) Albumin [Mass/volume] in 4.5 g/dL 3.8-4.8 Serum or Plasma (test code = 1751-7) Globulin [Mass/volume] in 2.9 g/dL 1.5-4.5 Serum by calculation (test code = 71823-9) Albumin/Globulin [Mass Ratio] 1.6 1.2-2.2 in Serum or Plasma (test code = 1759-0) Bilirubin.total [Mass/volume] 0.6 mg/dL 0.0-1.2 in Serum or Plasma (test code = 1975-2) Alkaline phosphatase 71 IU/L 39-117 [Enzymatic activity/volume] in Serum or Plasma (test code = 6768-6) Aspartate aminotransferase 22 IU/L 0-40 [Enzymatic activity/volume] in Serum or Plasma (test code = 1920-8) Alanine aminotransferase 27 IU/L 0-32 [Enzymatic activity/volume] in Serum or Plasma (test code = 1742-6) [facility], [id number] 00:00:00 Test Item Value Reference Range Interpretation Comments Cholesterol [Mass/volume] in Serum 183 mg/dL 100-199 or Plasma (test code = 2093-3) Triglyceride [Mass/volume] in Serum 131 mg/dL 0-149 or Plasma (test code = 2571-8) Cholesterol in HDL [Mass/volume] in 38 mg/dL >39 L Serum or Plasma (test code = 2085-9) Cholesterol in VLDL [Mass/volume] 24 mg/dL 5-40 in Serum or Plasma by calculation (test code = 59110-5) Cholesterol in LDL [Mass/volume] in 121 mg/dL 0-99 H Serum or Plasma by calculation (test code = 60836-9) Laboratory comment [Text] in Report cellular equipment installer Narrative (test code = 81022-9) Cholesterol.total/Cholesterol.in 4.8 ratio 0.0-4.4 H HDL [Mass ratio] in Serum or Plasma (test code = 9830-1) Cholesterol in LDL/Cholesterol in 3.2 ratio 0.0-3.2 HDL [Mass Ratio] in Serum or Plasma (test code = 43996-4) [facility]em[facility] A1c/Hemoglobin.total in [id number] 00:00:00 Test Item Value Reference Range Interpretation Comments Hemoglobin A1c/Hemoglobin.total in 5.2 % 4.8-5.6 Blood (test code = 4548-4) [facility] Irving[facility]yrotropin [Units/volume] in Serum or Plasma by Detection limit <= 0.005 mIU/[id number] 00:00:00 Test Item Value Reference Range Interpretation Comments Thyrotropin [Units/volume] in 2.160 uIU/mL 0.450-4.500 Serum or Plasma by Detection limit <= 0.005 mIU/L (test code = 29112-1) [facility] panel, [id number] 00:00:00 Test Item Value Reference Range Interpretation Comments interpretation (test code = note interpretation) pdf (test code = pdf) . [facility] IrvingCBC [facility] Auto Differential panel - Blood 2020-06-08 00:00:00 Test Item Value Reference Range Interpretation Comments Leukocytes [#/volume] in Blood 8.3 x10e3/uL 3.4-10.8 by Automated count (test code = 6690-2) Erythrocytes [#/volume] in 4.64 x10e6/uL 3.77-5.28 Blood by Automated count (test code = 789-8) Hemoglobin [Mass/volume] in 13.6 g/dL 11.1-15.9 Blood (test code = 718-7) Hematocrit [Volume Fraction] of 41.5 % 34.0-46.6 Blood by Automated count (test code = 4544-3) MCV [Entitic volume] by 89 fL 79-97 Automated count (test code = 787-2) MCH [Entitic mass] by Automated 29.3 pg 26.6-33.0 count (test code = 785-6) MCHC [Mass/volume] by Automated 32.8 g/dL 31.5-35.7 count (test code = 786-4) Erythrocyte distribution width 13.0 % 11.7-15.4 [Ratio] by Automated count (test code = 788-0) Platelets [#/volume] in Blood 375 x10e3/uL 150-450 by Automated count (test code = 777-3) Neutrophils/100 leukocytes in 67 % not estab. Blood by Automated count (test code = 770-8) Lymphocytes/100 leukocytes in 23 % not estab. Blood by Automated count (test code = 736-9) Monocytes/100 leukocytes in 7 % not estab. Blood by Automated count (test code = 5905-5) Eosinophils/100 leukocytes in 3 % not estab. Blood by Automated count (test code = 713-8) Basophils/100 leukocytes in 0 % not estab. Blood by Automated count (test code = 706-2) immature cells (test code = cellular equipment installer immature cells) Neutrophils [#/volume] in Blood 5.4 x10e3/uL 1.4-7.0 by Automated count (test code = 751-8) Lymphocytes [#/volume] in Blood 1.9 x10e3/uL 0.7-3.1 by Automated count (test code = 731-0) Monocytes [#/volume] in Blood 0.6 x10e3/uL 0.1-0.9 by Automated count (test code = 742-7) Eosinophils [#/volume] in Blood 0.3 x10e3/uL 0.0-0.4 by Automated count (test code = 711-2) Basophils [#/volume] in Blood 0.0 x10e3/uL 0.0-0.2 by Automated count (test code = 704-7) Immature granulocytes/100 0 % not estab. leukocytes in Blood by Automated count (test code = 66209-6) Immature granulocytes 0.0 x10e3/uL 0.0-0.1 [#/volume] in Blood by Automated count (test code = 55421-8) Nucleated erythrocytes/100 cellular equipment installer leukocytes [Ratio] in Blood by Automated count (test code = 02654-7) Morphology [Interpretation] in cellular equipment installer Blood Narrative (test code = 37945-8) [facility] ProgramComprehensive metabolic 2000 panel - Serum or [id number] 00:00:00 Test Item Value Reference Range Interpretation Comments Glucose [Mass/volume] in 92 mg/dL 65-99 Serum or Plasma (test code = 2345-7) Urea nitrogen [Mass/volume] 10 mg/dL 6-20 in Serum or Plasma (test code = 3094-0) Creatinine [Mass/volume] in 0.64 mg/dL 0.57-1.00 Serum or Plasma (test code = 2160-0) Glomerular filtration 113 mL/min/1.73 >59 rate/1.73 sq M.predicted among non-blacks [Volume Rate/Area] in Serum, Plasma or Blood by Creatinine-based formula (CKD-EPI) (test code = 10543-4) Glomerular filtration 130 mL/min/1.73 >59 rate/1.73 sq M.predicted among blacks [Volume Rate/Area] in Serum, Plasma or Blood by Creatinine-based formula (CKD-EPI) (test code = 48632-8) Urea nitrogen/Creatinine 16 9-23 [Mass Ratio] in Serum or Plasma (test code = 3097-3) Sodium [Moles/volume] in 138 mmol/L 134-144 Serum or Plasma (test code = 2951-2) Potassium [Moles/volume] in 4.5 mmol/L 3.5-5.2 Serum or Plasma (test code = 2823-3) Chloride [Moles/volume] in 104 mmol/L 96-106 Serum or Plasma (test code = 2075-0) Carbon dioxide, total 23 mmol/L 20-29 [Moles/volume] in Serum or Plasma (test code = 2027-9) Calcium [Mass/volume] in 9.2 mg/dL 8.7-10.2 Serum or Plasma (test code = 02427-5) Protein [Mass/volume] in 7.4 g/dL 6.0-8.5 Serum or Plasma (test code = 2885-2) Albumin [Mass/volume] in 4.5 g/dL 3.8-4.8 Serum or Plasma (test code = 1751-7) Globulin [Mass/volume] in 2.9 g/dL 1.5-4.5 Serum by calculation (test code = 62103-9) Albumin/Globulin [Mass Ratio] 1.6 1.2-2.2 in Serum or Plasma (test code = 1759-0) Bilirubin.total [Mass/volume] 0.6 mg/dL 0.0-1.2 in Serum or Plasma (test code = 1974-2) Alkaline phosphatase 71 IU/L 39-117 [Enzymatic activity/volume] in Serum or Plasma (test code = 6768-6) Aspartate aminotransferase 22 IU/L 0-40 [Enzymatic activity/volume] in Serum or Plasma (test code = 1920-8) Alanine aminotransferase 27 IU/L 0-32 [Enzymatic activity/volume] in Serum or Plasma (test code = 1742-6) [facility], [id number] 00:00:00 Test Item Value Reference Range Interpretation Comments Cholesterol [Mass/volume] in Serum 183 mg/dL 100-199 or Plasma (test code = 2093-3) Triglyceride [Mass/volume] in Serum 131 mg/dL 0-149 or Plasma (test code = 2571-8) Cholesterol in HDL [Mass/volume] in 38 mg/dL >39 L Serum or Plasma (test code = 2085-9) Cholesterol in VLDL [Mass/volume] 24 mg/dL 5-40 in Serum or Plasma by calculation (test code = 72751-1) Cholesterol in LDL [Mass/volume] in 121 mg/dL 0-99 H Serum or Plasma by calculation (test code = 97215-8) Laboratory comment [Text] in Report cellular equipment installer Narrative (test code = 15551-4) Cholesterol.total/Cholesterol.in 4.8 ratio 0.0-4.4 H HDL [Mass ratio] in Serum or Plasma (test code = 9830-1) Cholesterol in LDL/Cholesterol in 3.2 ratio 0.0-3.2 HDL [Mass Ratio] in Serum or Plasma (test code = 46547-9) [facility] IrvingHemoglobin A1c/Hemoglobin.total in [id number] 00:00:00 Test Item Value Reference Range Interpretation Comments Hemoglobin A1c/Hemoglobin.total in 5.2 % 4.8-5.6 Blood (test code = 4548-4) [facility] IrvingThyrotropin [Units/volume] in Serum or Plasma by Detection limit <= 0.005 mIU/[id number] 00:00:00 Test Item Value Reference Range Interpretation Comments Thyrotropin [Units/volume] in 2.160 uIU/mL 0.450-4.500 Serum or Plasma by Detection limit <= 0.005 mIU/L (test code = 66309-8) [facility] assessment panel, [id number] 00:00:00 Test Item Value Reference Range Interpretation Comments interpretation (test code = note interpretation) pdf (test code = pdf) . [facility] IrvingEKG [id number] 17:28:07 Test Item Value Reference Range Interpretation Comments Rate & Rhythm (test code = 66 sinus rhythm Rate & Rhythm) ND Interval (test code = ND 164 Interval) QRS Duration (test code = QRS 84 Duration) QT Interval (test code = QT 352 Interval) [facility]2020-11-23 17:28:07 Test Item Value Reference Range Interpretation Comments Rate & Rhythm (test code = 66 sinus rhythm Rate & Rhythm) ND Interval (test code = ND 164 Interval) QRS Duration (test code = QRS 84 Duration) QT Interval (test code = QT 352 Interval) [facility] [id number] 17:28:07 Test Item Value Reference Range Interpretation Comments Rate & Rhythm (test code = 66 sinus rhythm Rate & Rhythm) ND Interval (test code = ND 164 Interval) QRS Duration (test code = QRS 84 Duration) QT Interval (test code = QT 352 Interval) [facility] [id number] 17:28:07 Test Item Value Reference Range Interpretation Comments Rate & Rhythm (test code = 66 sinus rhythm Rate & Rhythm) ND Interval (test code = ND 164 Interval) QRS Duration (test code = QRS 84 Duration) QT Interval (test code = QT 352 Interval) [facility] IrvingUrinalysis macro (dipstick) panel - [id number] 13:45:00 Test Item Value Reference Range Interpretation Comments Leukocytes (test code = Leukocytes) neg Nitrite (test code = Nitrite) neg Urobilinogen (test code = Urobilinogen) 0.2 Protein (test code = Protein) neg pH (test code = pH) neg Blood (test code = Blood) neg Specific [place] (test code = Specific 1.020 [place]) Ketone (test code = Ketone) neg Bilirubin (test code = Bilirubin) neg Glucose (test code = Glucose) neg [facility] IrvingHemoglobin A1c/Hemoglobin.total in [id number] 00:00:00 Test Item Value Reference Range Interpretation Comments Hemoglobin A1c/Hemoglobin.total in 5.4 % 4.8-5.6 Blood (test code = 4548-4) [facility] IrvingThyrotropin [Units/volume] in Serum or Plasma by Detection limit <= 0.005 mIU/[id number] 00:00:00 Test Item Value Reference Range Interpretation Comments Thyrotropin [Units/volume] in 2.930 uIU/mL 0.450-4.500 Serum or Plasma by Detection limit <= 0.005 mIU/L (test code = 93514-0) [facility] IrvingNuclear Ab [Presence] in Serum 2019-06-17 00:00:00 Test Item Value Reference Range Interpretation Comments Nuclear Ab [Presence] in Serum (test negative negative code = 8061-4) [facility] IrvingErythrocyte sedimentation rate by Westergren [id number] 00:00:00 Test Item Value Reference Range Interpretation Comments Erythrocyte sedimentation rate by 8 mm/HR 0-32 Westergren method (test code = 4537-7) [facility] IrvingHemoglobin A1c/Hemoglobin.total in [id number] 00:00:00 Test Item Value Reference Range Interpretation Comments Hemoglobin A1c/Hemoglobin.total in 5.4 % 4.8-5.6 Blood (test code = 4548-4) [facility] IrvingThyrotropin [Units/volume] in Serum or Plasma by Detection limit <= 0.005 mIU/[id number] 00:00:00 Test Item Value Reference Range Interpretation Comments Thyrotropin [Units/volume] in 2.930 uIU/mL 0.450-4.500 Serum or Plasma by Detection limit <= 0.005 mIU/L (test code = 99237-1) [facility] IrvingNuclear Ab [Presence] in Serum 2019-06-17 00:00:00 Test Item Value Reference Range Interpretation Comments Nuclear Ab [Presence] in Serum (test negative negative code = 8061-4) [facility] IrvingErythrocyte sedimentation rate by Westergren [id number] 00:00:00 Test Item Value Reference Range Interpretation Comments Erythrocyte sedimentation rate by 8 mm/HR 0-32 Westergren method (test code = 4537-7) [facility] IrvingHemoglobin A1c/Hemoglobin.total in [id number] 00:00:00 Test Item Value Reference Range Interpretation Comments Hemoglobin A1c/Hemoglobin.total in 5.4 % 4.8-5.6 Blood (test code = 4548-4) [facility] IrvingThyrotropin [Units/volume] in Serum or Plasma by Detection limit <= 0.005 mIU/[id number] 00:00:00 Test Item Value Reference Range Interpretation Comments Thyrotropin [Units/volume] in 2.930 uIU/mL 0.450-4.500 Serum or Plasma by Detection limit <= 0.005 mIU/L (test code = 04325-4) [facility] IrvingNuclear Ab [Presence] in Serum 2019-06-17 00:00:00 Test Item Value Reference Range Interpretation Comments Nuclear Ab [Presence] in Serum (test negative negative code = 8061-4) [facility] IrvingErythrocyte sedimentation rate by Westergren [id number] 00:00:00 Test Item Value Reference Range Interpretation Comments Erythrocyte sedimentation rate by 8 mm/HR 0-32 Westergren method (test code = 4537-7) [facility] IrvingHemoglobin A1c/Hemoglobin.total in [id number] 00:00:00 Test Item Value Reference Range Interpretation Comments Hemoglobin A1c/Hemoglobin.total in 5.4 % 4.8-5.6 Blood (test code = 4548-4) [facility] IrvingThyrotropin [Units/volume] in Serum or Plasma by Detection limit <= 0.005 mIU/[id number] 00:00:00 Test Item Value Reference Range Interpretation Comments Thyrotropin [Units/volume] in 2.930 uIU/mL 0.450-4.500 Serum or Plasma by Detection limit <= 0.005 mIU/L (test code = 56182-2) [facility] IrvingNuclear Ab [Presence] in Serum 2019-06-17 00:00:00 Test Item Value Reference Range Interpretation Comments Nuclear Ab [Presence] in Serum (test negative negative code = 8061-4) [facility] IrvingErythrocyte sedimentation rate by Westergren [id number] 00:00:00 Test Item Value Reference Range Interpretation Comments Erythrocyte sedimentation rate by 8 mm/HR 0-32 Westergren method (test code = 4537-7) [facility] [place], IG + CT/NG/[id number] 00:00:00 Test Item Value Reference Range Interpretation Comments age gdln acog testing (test code = 30-65 age gdln acog testing) Cytology report of Cervical or comment vaginal smear or scraping Cyto stain (test code = 46576-1) Statement of adequacy comment [interpretation] of Cervical or vaginal smear or scraping by Cyto stain (test code = 53538-4) Diagnosis ICD code (test code = comment 13787-3) Senior Analysis Specialist who read Cyto stain of comment Cervical or vaginal smear or scraping (test code = 22567-8) QC reviewed by: (test code = QC comment reviewed by:) Microscopic observation [Identifier] . in Unspecified specimen by Other stain (test code = 11638-2) note: (test code = note:) comment Cytology report of Cervical or comment vaginal smear or scraping Cyto stain.thin prep (test code = 79814-0) Human papilloma virus negative negative 16+18+31+33+35+39+45+51+52+56+58+59+ 66+68 DNA [Presence] in Cervix by Probe and signal amplification method (test code = 77833-1) Chlamydia trachomatis rRNA negative negative [Presence] in Cervix by Probe and target amplification method (test code = 13992-0) Neisseria gonorrhoeae rRNA negative negative [Presence] in Cervix by Probe and target amplification method (test code = 88360-4) Trichomonas vaginalis rRNA negative negative [Presence] in Unspecified specimen by Probe and target amplification method (test code = 87619-3) [facility] [place], IG + CT/NG/[id number] 00:00:00 Test Item Value Reference Range Interpretation Comments age gdln acog testing (test code = 30-65 age gdln acog testing) Cytology report of Cervical or comment vaginal smear or scraping Cyto stain (test code = 79092-4) Statement of adequacy comment [interpretation] of Cervical or vaginal smear or scraping by Cyto stain (test code = 93305-9) Diagnosis ICD code (test code = comment 54382-4) Senior Analysis Specialist who read Cyto stain of comment Cervical or vaginal smear or scraping (test code = 48117-0) QC reviewed by: (test code = QC comment reviewed by:) Microscopic observation [Identifier] . in Unspecified specimen by Other stain (test code = 89505-9) note: (test code = note:) comment Cytology report of Cervical or comment vaginal smear or scraping Cyto stain.thin prep (test code = 70442-5) Human papilloma virus negative negative 16+18+31+33+35+39+45+51+52+56+58+59+ 66+68 DNA [Presence] in Cervix by Probe and signal amplification method (test code = 14687-7) Chlamydia trachomatis rRNA negative negative [Presence] in Cervix by Probe and target amplification method (test code = 58118-3) Neisseria gonorrhoeae rRNA negative negative [Presence] in Cervix by Probe and target amplification method (test code = 58012-4) Trichomonas vaginalis rRNA negative negative [Presence] in Unspecified specimen by Probe and target amplification method (test code = 85072-6) [facility]/NG/[id number] 00:00:00 Test Item Value Reference Range Interpretation Comments age gdln acog testing (test code = 30-65 age gdln acog testing) Cytology report of Cervical or comment vaginal smear or scraping Cyto stain (test code = 94885-6) Statement of adequacy comment [interpretation] of Cervical or vaginal smear or scraping by Cyto stain (test code = 97400-6) Diagnosis ICD code (test code = comment 41589-6) Senior Analysis Specialist who read Cyto stain of comment Cervical or vaginal smear or scraping (test code = 01102-6) QC reviewed by: (test code = QC comment reviewed by:) Microscopic observation [Identifier] . in Unspecified specimen by Other stain (test code = 81137-9) note: (test code = note:) comment Cytology report of Cervical or comment vaginal smear or scraping Cyto stain.thin prep (test code = 19065-7) Human papilloma virus negative negative 16+18+31+33+35+39+45+51+52+56+58+59+ 66+68 DNA [Presence] in Cervix by Probe and signal amplification method (test code = 36218-2) Chlamydia trachomatis rRNA negative negative [Presence] in Cervix by Probe and target amplification method (test code = 19513-8) Neisseria gonorrhoeae rRNA negative negative [Presence] in Cervix by Probe and target amplification method (test code = 47416-1) Trichomonas vaginalis rRNA negative negative [Presence] in Unspecified specimen by Probe and target amplification method (test code = 11404-9) [facility] + CT/NG/[id number] 00:00:00 Test Item Value Reference Range Interpretation Comments age gdln acog testing (test code = 30-65 age gdln acog testing) Cytology report of Cervical or comment vaginal smear or scraping Cyto stain (test code = 83840-2) Statement of adequacy comment [interpretation] of Cervical or vaginal smear or scraping by Cyto stain (test code = 49892-6) Diagnosis ICD code (test code = comment 76308-2) Senior Analysis Specialist who read Cyto stain of comment Cervical or vaginal smear or scraping (test code = 86593-3) QC reviewed by: (test code = QC comment reviewed by:) Microscopic observation [Identifier] . in Unspecified specimen by Other stain (test code = 95747-8) note: (test code = note:) comment Cytology report of Cervical or comment vaginal smear or scraping Cyto stain.thin prep (test code = 10975-3) Human papilloma virus negative negative 16+18+31+33+35+39+45+51+52+56+58+59+ 66+68 DNA [Presence] in Cervix by Probe and signal amplification method (test code = 45234-1) Chlamydia trachomatis rRNA negative negative [Presence] in Cervix by Probe and target amplification method (test code = 74958-3) Neisseria gonorrhoeae rRNA negative negative [Presence] in Cervix by Probe and target amplification method (test code = 67817-6) Trichomonas vaginalis rRNA negative negative [Presence] in Unspecified specimen by Probe and target amplification method (test code = 54290-5) [facility] IrvingInsulin Ab [Units/volume] in Serum 2019-05-20 00:00:00 Test Item Value Reference Range Interpretation Comments Insulin Ab [Units/volume] in Serum <5.0 (test code = 8072-1) [facility] IrvingInsulin Ab [Units/volume] in Serum 2019-05-20 00:00:00 Test Item Value Reference Range Interpretation Comments Insulin Ab [Units/volume] in Serum <5.0 (test code = 8072-1) [facility] Irving[facility]ulin [facility] [Units/volume] in Serum 2019-05-20 00:00:00 Test Item Value Reference Range Interpretation Comments Insulin Ab [Units/volume] in Serum <5.0 (test code = 8072-1) [facility] Irving[facility]ulin Ab [Units/volume] in Serum 2019-05-20 00:00:00 Test Item Value Reference Range Interpretation Comments Insulin Ab [Units/volume] in Serum <5.0 (test code = 8072-1) [facility] Irving[facility]ulin Ab [Units/volume] in Serum 2019-05-20 00:00:00 Test Item Value Reference Range Interpretation Comments Insulin Ab [Units/volume] in Serum <5.0 (test code = 8072-1) [facility] IrvingCB W Auto Differential panel - Blood 2019-05-14 00:00:00 Test Item Value Reference Range Interpretation Comments Leukocytes [#/volume] in Blood 6.9 x10e3/uL 3.4-10.8 by Automated count (test code = 6690-2) Erythrocytes [#/volume] in 4.65 x10e6/uL 3.77-5.28 Blood by Automated count (test code = 789-8) Hemoglobin [Mass/volume] in 13.6 g/dL 11.1-15.9 Blood (test code = 718-7) Hematocrit [Volume Fraction] of 41.8 % 34.0-46.6 Blood by Automated count (test code = 4544-3) Erythrocyte mean corpuscular 90 fL 79-97 volume [Entitic volume] by Automated count (test code = 787-2) Erythrocyte mean corpuscular 29.2 pg 26.6-33.0 hemoglobin [Entitic mass] by Automated count (test code = 785-6) Erythrocyte mean corpuscular 32.5 g/dL 31.5-35.7 hemoglobin concentration [Mass/volume] by Automated count (test code = 786-4) Erythrocyte distribution width 13.8 % 12.3-15.4 [Ratio] by Automated count (test code = 788-0) Platelets [#/volume] in Blood 345 x10e3/uL 150-450 by Automated count (test code = 777-3) Neutrophils/100 leukocytes in 65 % not estab. Blood by Automated count (test code = 770-8) Lymphocytes/100 leukocytes in 26 % not estab. Blood by Automated count (test code = 736-9) Monocytes/100 leukocytes in 6 % not estab. Blood by Automated count (test code = 5905-5) Eosinophils/100 leukocytes in 3 % not estab. Blood by Automated count (test code = 713-8) Basophils/100 leukocytes in 0 % not estab. Blood by Automated count (test code = 706-2) immature cells (test code = cellular equipment installer immature cells) Neutrophils [#/volume] in Blood 4.4 x10e3/uL 1.4-7.0 by Automated count (test code = 751-8) Lymphocytes [#/volume] in Blood 1.8 x10e3/uL 0.7-3.1 by Automated count (test code = 731-0) Monocytes [#/volume] in Blood 0.4 x10e3/uL 0.1-0.9 by Automated count (test code = 742-7) Eosinophils [#/volume] in Blood 0.2 x10e3/uL 0.0-0.4 by Automated count (test code = 711-2) Basophils [#/volume] in Blood 0.0 x10e3/uL 0.0-0.2 by Automated count (test code = 704-7) immature granulocytes (test 0 % not estab. code = immature granulocytes) Granulocytes Immature 0.0 x10e3/uL 0.0-0.1 [#/volume] in Blood by Automated count (test code = 74380-8) Nucleated erythrocytes/100 cellular equipment installer leukocytes [Ratio] in Blood by Automated count (test code = 13490-4) Morphology [interpretation] in cellular equipment installer Blood Narrative (test code = 39290-6) [facility]Com[facility] 2000 [facility] - Serum or [id number] 00:00:00 Test Item Value Reference Range Interpretation Comments Glucose [Mass/volume] in 84 mg/dL 65-99 Serum or Plasma (test code = 2345-7) Urea nitrogen [Mass/volume] 12 mg/dL 6-20 in Serum or Plasma (test code = 3094-0) Creatinine [Mass/volume] in 0.68 mg/dL 0.57-1.00 Serum or Plasma (test code = 2160-0) eGFR if nonafricn AM (test 111 mL/min/1.73 >59 code = eGFR if nonafricn AM) eGFR if africn AM (test code 128 mL/min/1.73 >59 = eGFR if africn AM) Urea nitrogen/Creatinine 18 9-23 [Mass Ratio] in Serum or Plasma (test code = 3097-3) Sodium [Moles/volume] in 141 mmol/L 134-144 Serum or Plasma (test code = 2951-2) Potassium [Moles/volume] in 4.4 mmol/L 3.5-5.2 Serum or Plasma (test code = 2823-3) Chloride [Moles/volume] in 103 mmol/L 96-106 Serum or Plasma (test code = 207-0) Carbon dioxide, total 23 mmol/L 20-29 [Moles/volume] in Serum or Plasma (test code = 2027-) Calcium [Mass/volume] in 9.1 mg/dL 8.7-10.2 Serum or Plasma (test code = 25019-0) Protein [Mass/volume] in 6.7 g/dL 6.0-8.5 Serum or Plasma (test code = 2885-2) Albumin [Mass/volume] in 4.1 g/dL 3.5-5.5 Serum or Plasma (test code = 1751-7) Globulin [Mass/volume] in 2.6 g/dL 1.5-4.5 Serum by calculation (test code = 23658-3) Albumin/Globulin [Mass Ratio] 1.6 1.2-2.2 in Serum or Plasma (test code = 1759-0) Bilirubin.total [Mass/volume] 0.4 mg/dL 0.0-1.2 in Serum or Plasma (test code = 1974-) Alkaline phosphatase 55 IU/L 39-117 [Enzymatic activity/volume] in Serum or Plasma (test code = 6768-6) Aspartate aminotransferase 19 IU/L 0-40 [Enzymatic activity/volume] in Serum or Plasma (test code = 0-8) Alanine aminotransferase 22 IU/L 0-32 [Enzymatic activity/volume] in Serum or Plasma (test code = 1742-6) [facility] - [facility] or Plasma 2019-05-14 00:00:00 Test Item Value Reference Range Interpretation Comments Cholesterol [Mass/volume] in Serum 196 mg/dL 100-199 or Plasma (test code = 2093-3) Triglyceride [Mass/volume] in Serum 127 mg/dL 0-149 or Plasma (test code = 2571-8) Cholesterol in HDL [Mass/volume] in 44 mg/dL >39 Serum or Plasma (test code = 2085-9) Cholesterol in VLDL [Mass/volume] 25 mg/dL 5-40 in Serum or Plasma by calculation (test code = 14688-7) Cholesterol in LDL [Mass/volume] in 127 mg/dL 0-99 H Serum or Plasma by calculation (test code = 62840-0) comment: (test code = comment:) cellular equipment installer [facility] peptide [Mass/volume] in Serum or [id number] 00:00:00 Test Item Value Reference Range Interpretation Comments C peptide [Mass/volume] in Serum or 2.7 NG/mL 1.1-4.4 Plasma (test code = 1986-9) [facility] Irving[facility] reflex to [id number] 00:00:00 Test Item Value Reference Range Interpretation Comments Thyrotropin [Units/volume] in 2.580 uIU/mL 0.450-4.500 Serum or Plasma by Detection limit <= 0.005 mIU/L (test code = 76625-4) [facility] [Units/volume] in Serum or [id number] 00:00:00 Test Item Value Reference Range Interpretation Comments Insulin [Units/volume] in Serum 12.1 uIU/mL 2.6-24.9 or Plasma (test code = 77336-5) [facility], [id number] 00:00:00 Test Item Value Reference Range Interpretation Comments interpretation (test code = note interpretation) pdf image (test code = pdf image) . [facility] Auto Differential panel - Blood 2019-05-14 00:00:00 Test Item Value Reference Range Interpretation Comments Leukocytes [#/volume] in Blood 6.9 x10e3/uL 3.4-10.8 by Automated count (test code = 6690-2) Erythrocytes [#/volume] in 4.65 x10e6/uL 3.77-5.28 Blood by Automated count (test code = 789-8) Hemoglobin [Mass/volume] in 13.6 g/dL 11.1-15.9 Blood (test code = 718-7) Hematocrit [Volume Fraction] of 41.8 % 34.0-46.6 Blood by Automated count (test code = 4544-3) Erythrocyte mean corpuscular 90 fL 79-97 volume [Entitic volume] by Automated count (test code = 787-2) Erythrocyte mean corpuscular 29.2 pg 26.6-33.0 hemoglobin [Entitic mass] by Automated count (test code = 785-6) Erythrocyte mean corpuscular 32.5 g/dL 31.5-35.7 hemoglobin concentration [Mass/volume] by Automated count (test code = 786-4) Erythrocyte distribution width 13.8 % 12.3-15.4 [Ratio] by Automated count (test code = 788-0) Platelets [#/volume] in Blood 345 x10e3/uL 150-450 by Automated count (test code = 777-3) Neutrophils/100 leukocytes in 65 % not estab. Blood by Automated count (test code = 770-8) Lymphocytes/100 leukocytes in 26 % not estab. Blood by Automated count (test code = 736-9) Monocytes/100 leukocytes in 6 % not estab. Blood by Automated count (test code = 5905-5) Eosinophils/100 leukocytes in 3 % not estab. Blood by Automated count (test code = 713-8) Basophils/100 leukocytes in 0 % not estab. Blood by Automated count (test code = 706-2) immature cells (test code = cellular equipment installer immature cells) Neutrophils [#/volume] in Blood 4.4 x10e3/uL 1.4-7.0 by Automated count (test code = 751-8) Lymphocytes [#/volume] in Blood 1.8 x10e3/uL 0.7-3.1 by Automated count (test code = 731-0) Monocytes [#/volume] in Blood 0.4 x10e3/uL 0.1-0.9 by Automated count (test code = 742-7) Eosinophils [#/volume] in Blood 0.2 x10e3/uL 0.0-0.4 by Automated count (test code = 711-2) Basophils [#/volume] in Blood 0.0 x10e3/uL 0.0-0.2 by Automated count (test code = 704-7) immature granulocytes (test 0 % not estab. code = immature granulocytes) Granulocytes Immature 0.0 x10e3/uL 0.0-0.1 [#/volume] in Blood by Automated count (test code = 57350-1) Nucleated erythrocytes/100 cellular equipment installer leukocytes [Ratio] in Blood by Automated count (test code = 57169-3) Morphology [interpretation] in cellular equipment installer Blood Narrative (test code = 93403-8) [facility] ProgramComprehensive metabolic 2000 panel - Serum or [id number] 00:00:00 Test Item Value Reference Range Interpretation Comments Glucose [Mass/volume] in 84 mg/dL 65-99 Serum or Plasma (test code = 2345-7) Urea nitrogen [Mass/volume] 12 mg/dL 6-20 in Serum or Plasma (test code = 3094-0) Creatinine [Mass/volume] in 0.68 mg/dL 0.57-1.00 Serum or Plasma (test code = 2160-0) eGFR if nonafricn AM (test 111 mL/min/1.73 >59 code = eGFR if nonafricn AM) eGFR if africn AM (test code 128 mL/min/1.73 >59 = eGFR if africn AM) Urea nitrogen/Creatinine 18 9-23 [Mass Ratio] in Serum or Plasma (test code = 3097-3) Sodium [Moles/volume] in 141 mmol/L 134-144 Serum or Plasma (test code = 2951-2) Potassium [Moles/volume] in 4.4 mmol/L 3.5-5.2 Serum or Plasma (test code = 2823-3) Chloride [Moles/volume] in 103 mmol/L 96-106 Serum or Plasma (test code = 2075-0) Carbon dioxide, total 23 mmol/L 20-29 [Moles/volume] in Serum or Plasma (test code = 2027-9) Calcium [Mass/volume] in 9.1 mg/dL 8.7-10.2 Serum or Plasma (test code = 27158-6) Protein [Mass/volume] in 6.7 g/dL 6.0-8.5 Serum or Plasma (test code = 2885-2) Albumin [Mass/volume] in 4.1 g/dL 3.5-5.5 Serum or Plasma (test code = 1751-7) Globulin [Mass/volume] in 2.6 g/dL 1.5-4.5 Serum by calculation (test code = 55328-5) Albumin/Globulin [Mass Ratio] 1.6 1.2-2.2 in Serum or Plasma (test code = 1759-0) Bilirubin.total [Mass/volume] 0.4 mg/dL 0.0-1.2 in Serum or Plasma (test code = 1975-2) Alkaline phosphatase 55 IU/L 39-117 [Enzymatic activity/volume] in Serum or Plasma (test code = 6768-6) Aspartate aminotransferase 19 IU/L 0-40 [Enzymatic activity/volume] in Serum or Plasma (test code = 1920-8) Alanine aminotransferase 22 IU/L 0-32 [Enzymatic activity/volume] in Serum or Plasma (test code = 1742-6) [facility] - Serum or Plasma 2019-05-14 00:00:00 Test Item Value Reference Range Interpretation Comments Cholesterol [Mass/volume] in Serum 196 mg/dL 100-199 or Plasma (test code = 2093-3) Triglyceride [Mass/volume] in Serum 127 mg/dL 0-149 or Plasma (test code = 2571-8) Cholesterol in HDL [Mass/volume] in 44 mg/dL >39 Serum or Plasma (test code = 2085-9) Cholesterol in VLDL [Mass/volume] 25 mg/dL 5-40 in Serum or Plasma by calculation (test code = 80644-9) Cholesterol in LDL [Mass/volume] in 127 mg/dL 0-99 H Serum or Plasma by calculation (test code = 00576-2) comment: (test code = comment:) cellular equipment installer [facility] Program[facility] peptide [Mass/volume] in Serum or [id number] 00:00:00 Test Item Value Reference Range Interpretation Comments C peptide [Mass/volume] in Serum or 2.7 NG/mL 1.1-4.4 Plasma (test code = 1986-9) [facility] Irving[facility] reflex to [id number] 00:00:00 Test Item Value Reference Range Interpretation Comments Thyrotropin [Units/volume] in 2.580 uIU/mL 0.450-4.500 Serum or Plasma by Detection limit <= 0.005 mIU/L (test code = 75606-5) [facility] Irving[facility] [Units/volume] in Serum or [id number] 00:00:00 Test Item Value Reference Range Interpretation Comments Insulin [Units/volume] in Serum 12.1 uIU/mL 2.6-24.9 or Plasma (test code = 84994-4) [facility], [id number] 00:00:00 Test Item Value Reference Range Interpretation Comments interpretation (test code = note interpretation) pdf image (test code = pdf image) . [facility] W Auto Differential panel - Blood 2019-05-14 00:00:00 Test Item Value Reference Range Interpretation Comments Leukocytes [#/volume] in Blood 6.9 x10e3/uL 3.4-10.8 by Automated count (test code = 6690-2) Erythrocytes [#/volume] in 4.65 x10e6/uL 3.77-5.28 Blood by Automated count (test code = 789-8) Hemoglobin [Mass/volume] in 13.6 g/dL 11.1-15.9 Blood (test code = 718-7) Hematocrit [Volume Fraction] of 41.8 % 34.0-46.6 Blood by Automated count (test code = 4544-3) Erythrocyte mean corpuscular 90 fL 79-97 volume [Entitic volume] by Automated count (test code = 787-2) Erythrocyte mean corpuscular 29.2 pg 26.6-33.0 hemoglobin [Entitic mass] by Automated count (test code = 785-6) Erythrocyte mean corpuscular 32.5 g/dL 31.5-35.7 hemoglobin concentration [Mass/volume] by Automated count (test code = 786-4) Erythrocyte distribution width 13.8 % 12.3-15.4 [Ratio] by Automated count (test code = 788-0) Platelets [#/volume] in Blood 345 x10e3/uL 150-450 by Automated count (test code = 777-3) Neutrophils/100 leukocytes in 65 % not estab. Blood by Automated count (test code = 770-8) Lymphocytes/100 leukocytes in 26 % not estab. Blood by Automated count (test code = 736-9) Monocytes/100 leukocytes in 6 % not estab. Blood by Automated count (test code = 5905-5) Eosinophils/100 leukocytes in 3 % not estab. Blood by Automated count (test code = 713-8) Basophils/100 leukocytes in 0 % not estab. Blood by Automated count (test code = 706-2) immature cells (test code = cellular equipment installer immature cells) Neutrophils [#/volume] in Blood 4.4 x10e3/uL 1.4-7.0 by Automated count (test code = 751-8) Lymphocytes [#/volume] in Blood 1.8 x10e3/uL 0.7-3.1 by Automated count (test code = 731-0) Monocytes [#/volume] in Blood 0.4 x10e3/uL 0.1-0.9 by Automated count (test code = 742-7) Eosinophils [#/volume] in Blood 0.2 x10e3/uL 0.0-0.4 by Automated count (test code = 711-2) Basophils [#/volume] in Blood 0.0 x10e3/uL 0.0-0.2 by Automated count (test code = 704-7) immature granulocytes (test 0 % not estab. code = immature granulocytes) Granulocytes Immature 0.0 x10e3/uL 0.0-0.1 [#/volume] in Blood by Automated count (test code = 12671-5) Nucleated erythrocytes/100 cellular equipment installer leukocytes [Ratio] in Blood by Automated count (test code = 03299-1) Morphology [interpretation] in cellular equipment installer Blood Narrative (test code = 12243-5) [facility] ProgramComprehensive metabolic 2000 panel - Serum or [id number] 00:00:00 Test Item Value Reference Range Interpretation Comments Glucose [Mass/volume] in 84 mg/dL 65-99 Serum or Plasma (test code = 2345-7) Urea nitrogen [Mass/volume] 12 mg/dL 6-20 in Serum or Plasma (test code = 3094-0) Creatinine [Mass/volume] in 0.68 mg/dL 0.57-1.00 Serum or Plasma (test code = 2160-0) eGFR if nonafricn AM (test 111 mL/min/1.73 >59 code = eGFR if nonafricn AM) eGFR if africn AM (test code 128 mL/min/1.73 >59 = eGFR if africn AM) Urea nitrogen/Creatinine 18 9-23 [Mass Ratio] in Serum or Plasma (test code = 3097-3) Sodium [Moles/volume] in 141 mmol/L 134-144 Serum or Plasma (test code = 2951-2) Potassium [Moles/volume] in 4.4 mmol/L 3.5-5.2 Serum or Plasma (test code = 2823-3) Chloride [Moles/volume] in 103 mmol/L 96-106 Serum or Plasma (test code = 2074-0) Carbon dioxide, total 23 mmol/L 20-29 [Moles/volume] in Serum or Plasma (test code = 2027-9) Calcium [Mass/volume] in 9.1 mg/dL 8.7-10.2 Serum or Plasma (test code = 33387-8) Protein [Mass/volume] in 6.7 g/dL 6.0-8.5 Serum or Plasma (test code = 2885-2) Albumin [Mass/volume] in 4.1 g/dL 3.5-5.5 Serum or Plasma (test code = 1751-7) Globulin [Mass/volume] in 2.6 g/dL 1.5-4.5 Serum by calculation (test code = 06698-8) Albumin/Globulin [Mass Ratio] 1.6 1.2-2.2 in Serum or Plasma (test code = 1759-0) Bilirubin.total [Mass/volume] 0.4 mg/dL 0.0-1.2 in Serum or Plasma (test code = 1974-) Alkaline phosphatase 55 IU/L 39-117 [Enzymatic activity/volume] in Serum or Plasma (test code = 6768-6) Aspartate aminotransferase 19 IU/L 0-40 [Enzymatic activity/volume] in Serum or Plasma (test code = 1920-8) Alanine aminotransferase 22 IU/L 0-32 [Enzymatic activity/volume] in Serum or Plasma (test code = 1742-6) [facility] - Serum or Plasma 2019-05-14 00:00:00 Test Item Value Reference Range Interpretation Comments Cholesterol [Mass/volume] in Serum 196 mg/dL 100-199 or Plasma (test code = 2093-3) Triglyceride [Mass/volume] in Serum 127 mg/dL 0-149 or Plasma (test code = 2571-8) Cholesterol in HDL [Mass/volume] in 44 mg/dL >39 Serum or Plasma (test code = 2085-9) Cholesterol in VLDL [Mass/volume] 25 mg/dL 5-40 in Serum or Plasma by calculation (test code = 59058-5) Cholesterol in LDL [Mass/volume] in 127 mg/dL 0-99 H Serum or Plasma by calculation (test code = 29868-0) comment: (test code = comment:) cellular equipment installer [facility] peptide [Mass/volume] in Serum or [id number] 00:00:00 Test Item Value Reference Range Interpretation Comments C peptide [Mass/volume] in Serum or 2.7 NG/mL 1.1-4.4 Plasma (test code = 1986-9) [facility] Irving[facility] reflex to [id number] 00:00:00 Test Item Value Reference Range Interpretation Comments Thyrotropin [Units/volume] in 2.580 uIU/mL 0.450-4.500 Serum or Plasma by Detection limit <= 0.005 mIU/L (test code = 44747-2) [facility] [Units/volume] in Serum or [id number] 00:00:00 Test Item Value Reference Range Interpretation Comments Insulin [Units/volume] in Serum 12.1 uIU/mL 2.6-24.9 or Plasma (test code = 24517-8) [facility], [id number] 00:00:00 Test Item Value Reference Range Interpretation Comments interpretation (test code = note interpretation) pdf image (test code = pdf image) . [facility] W Auto Differential panel - Blood 2019-05-14 00:00:00 Test Item Value Reference Range Interpretation Comments Leukocytes [#/volume] in Blood 6.9 x10e3/uL 3.4-10.8 by Automated count (test code = 6690-2) Erythrocytes [#/volume] in 4.65 x10e6/uL 3.77-5.28 Blood by Automated count (test code = 789-8) Hemoglobin [Mass/volume] in 13.6 g/dL 11.1-15.9 Blood (test code = 718-7) Hematocrit [Volume Fraction] of 41.8 % 34.0-46.6 Blood by Automated count (test code = 4544-3) Erythrocyte mean corpuscular 90 fL 79-97 volume [Entitic volume] by Automated count (test code = 787-2) Erythrocyte mean corpuscular 29.2 pg 26.6-33.0 hemoglobin [Entitic mass] by Automated count (test code = 785-6) Erythrocyte mean corpuscular 32.5 g/dL 31.5-35.7 hemoglobin concentration [Mass/volume] by Automated count (test code = 786-4) Erythrocyte distribution width 13.8 % 12.3-15.4 [Ratio] by Automated count (test code = 788-0) Platelets [#/volume] in Blood 345 x10e3/uL 150-450 by Automated count (test code = 777-3) Neutrophils/100 leukocytes in 65 % not estab. Blood by Automated count (test code = 770-8) Lymphocytes/100 leukocytes in 26 % not estab. Blood by Automated count (test code = 736-9) Monocytes/100 leukocytes in 6 % not estab. Blood by Automated count (test code = 5905-5) Eosinophils/100 leukocytes in 3 % not estab. Blood by Automated count (test code = 713-8) Basophils/100 leukocytes in 0 % not estab. Blood by Automated count (test code = 706-2) immature cells (test code = cellular equipment installer immature cells) Neutrophils [#/volume] in Blood 4.4 x10e3/uL 1.4-7.0 by Automated count (test code = 751-8) Lymphocytes [#/volume] in Blood 1.8 x10e3/uL 0.7-3.1 by Automated count (test code = 731-0) Monocytes [#/volume] in Blood 0.4 x10e3/uL 0.1-0.9 by Automated count (test code = 742-7) Eosinophils [#/volume] in Blood 0.2 x10e3/uL 0.0-0.4 by Automated count (test code = 711-2) Basophils [#/volume] in Blood 0.0 x10e3/uL 0.0-0.2 by Automated count (test code = 704-7) immature granulocytes (test 0 % not estab. code = immature granulocytes) Granulocytes Immature 0.0 x10e3/uL 0.0-0.1 [#/volume] in Blood by Automated count (test code = 61500-6) Nucleated erythrocytes/100 cellular equipment installer leukocytes [Ratio] in Blood by Automated count (test code = 99569-5) Morphology [interpretation] in cellular equipment installer Blood Narrative (test code = 10611-9) [facility] ProgramComprehensive metabolic 2000 panel - Serum or [id number] 00:00:00 Test Item Value Reference Range Interpretation Comments Glucose [Mass/volume] in 84 mg/dL 65-99 Serum or Plasma (test code = 2345-7) Urea nitrogen [Mass/volume] 12 mg/dL 6-20 in Serum or Plasma (test code = 3094-0) Creatinine [Mass/volume] in 0.68 mg/dL 0.57-1.00 Serum or Plasma (test code = 2160-0) eGFR if nonafricn AM (test 111 mL/min/1.73 >59 code = eGFR if nonafricn AM) eGFR if africn AM (test code 128 mL/min/1.73 >59 = eGFR if africn AM) Urea nitrogen/Creatinine 18 9-23 [Mass Ratio] in Serum or Plasma (test code = 3097-3) Sodium [Moles/volume] in 141 mmol/L 134-144 Serum or Plasma (test code = 2951-2) Potassium [Moles/volume] in 4.4 mmol/L 3.5-5.2 Serum or Plasma (test code = 2823-3) Chloride [Moles/volume] in 103 mmol/L 96-106 Serum or Plasma (test code = 2074-0) Carbon dioxide, total 23 mmol/L 20-29 [Moles/volume] in Serum or Plasma (test code = 2027-) Calcium [Mass/volume] in 9.1 mg/dL 8.7-10.2 Serum or Plasma (test code = 95782-6) Protein [Mass/volume] in 6.7 g/dL 6.0-8.5 Serum or Plasma (test code = 2885-2) Albumin [Mass/volume] in 4.1 g/dL 3.5-5.5 Serum or Plasma (test code = 1751-7) Globulin [Mass/volume] in 2.6 g/dL 1.5-4.5 Serum by calculation (test code = 39782-9) Albumin/Globulin [Mass Ratio] 1.6 1.2-2.2 in Serum or Plasma (test code = 1759-0) Bilirubin.total [Mass/volume] 0.4 mg/dL 0.0-1.2 in Serum or Plasma (test code = 1974-2) Alkaline phosphatase 55 IU/L 39-117 [Enzymatic activity/volume] in Serum or Plasma (test code = 6768-6) Aspartate aminotransferase 19 IU/L 0-40 [Enzymatic activity/volume] in Serum or Plasma (test code = 1920-8) Alanine aminotransferase 22 IU/L 0-32 [Enzymatic activity/volume] in Serum or Plasma (test code = 1742-6) [facility] - Serum or Plasma 2019-05-14 00:00:00 Test Item Value Reference Range Interpretation Comments Cholesterol [Mass/volume] in Serum 196 mg/dL 100-199 or Plasma (test code = 2093-3) Triglyceride [Mass/volume] in Serum 127 mg/dL 0-149 or Plasma (test code = 2571-8) Cholesterol in HDL [Mass/volume] in 44 mg/dL >39 Serum or Plasma (test code = 5-9) Cholesterol in VLDL [Mass/volume] 25 mg/dL 5-40 in Serum or Plasma by calculation (test code = 00041-0) Cholesterol in LDL [Mass/volume] in 127 mg/dL 0-99 H Serum or Plasma by calculation (test code = 35625-6) comment: (test code = comment:) cellular equipment installer [facility] peptide [Mass/volume] in Serum or [id number] 00:00:00 Test Item Value Reference Range Interpretation Comments C peptide [Mass/volume] in Serum or 2.7 NG/mL 1.1-4.4 Plasma (test code = 1986-9) [facility] Irving[facility] reflex to [id number] 00:00:00 Test Item Value Reference Range Interpretation Comments Thyrotropin [Units/volume] in 2.580 uIU/mL 0.450-4.500 Serum or Plasma by Detection limit <= 0.005 mIU/L (test code = 44200-3) [facility] Irving[facility] [Units/volume] in Serum or [id number] 00:00:00 Test Item Value Reference Range Interpretation Comments Insulin [Units/volume] in Serum 12.1 uIU/mL 2.6-24.9 or Plasma (test code = 81077-4) [facility], [id number] 00:00:00 Test Item Value Reference Range Interpretation Comments interpretation (test code = note interpretation) pdf image (test code = pdf image) . [facility] W Auto Differential panel - Blood 2019-05-14 00:00:00 Test Item Value Reference Range Interpretation Comments Leukocytes [#/volume] in Blood 6.9 x10e3/uL 3.4-10.8 by Automated count (test code = 6690-2) Erythrocytes [#/volume] in 4.65 x10e6/uL 3.77-5.28 Blood by Automated count (test code = 789-8) Hemoglobin [Mass/volume] in 13.6 g/dL 11.1-15.9 Blood (test code = 718-7) Hematocrit [Volume Fraction] of 41.8 % 34.0-46.6 Blood by Automated count (test code = 4544-3) Erythrocyte mean corpuscular 90 fL 79-97 volume [Entitic volume] by Automated count (test code = 787-2) Erythrocyte mean corpuscular 29.2 pg 26.6-33.0 hemoglobin [Entitic mass] by Automated count (test code = 785-6) Erythrocyte mean corpuscular 32.5 g/dL 31.5-35.7 hemoglobin concentration [Mass/volume] by Automated count (test code = 786-4) Erythrocyte distribution width 13.8 % 12.3-15.4 [Ratio] by Automated count (test code = 788-0) Platelets [#/volume] in Blood 345 x10e3/uL 150-450 by Automated count (test code = 777-3) Neutrophils/100 leukocytes in 65 % not estab. Blood by Automated count (test code = 770-8) Lymphocytes/100 leukocytes in 26 % not estab. Blood by Automated count (test code = 736-9) Monocytes/100 leukocytes in 6 % not estab. Blood by Automated count (test code = 5905-5) Eosinophils/100 leukocytes in 3 % not estab. Blood by Automated count (test code = 713-8) Basophils/100 leukocytes in 0 % not estab. Blood by Automated count (test code = 706-2) immature cells (test code = cellular equipment installer immature cells) Neutrophils [#/volume] in Blood 4.4 x10e3/uL 1.4-7.0 by Automated count (test code = 751-8) Lymphocytes [#/volume] in Blood 1.8 x10e3/uL 0.7-3.1 by Automated count (test code = 731-0) Monocytes [#/volume] in Blood 0.4 x10e3/uL 0.1-0.9 by Automated count (test code = 742-7) Eosinophils [#/volume] in Blood 0.2 x10e3/uL 0.0-0.4 by Automated count (test code = 711-2) Basophils [#/volume] in Blood 0.0 x10e3/uL 0.0-0.2 by Automated count (test code = 704-7) immature granulocytes (test 0 % not estab. code = immature granulocytes) Granulocytes Immature 0.0 x10e3/uL 0.0-0.1 [#/volume] in Blood by Automated count (test code = 28600-6) Nucleated erythrocytes/100 cellular equipment installer leukocytes [Ratio] in Blood by Automated count (test code = 89076-8) Morphology [interpretation] in cellular equipment installer Blood Narrative (test code = 94310-5) [facility] ProgramComprehensive [facility] 2000 [facility] - Serum or [id number] 00:00:00 Test Item Value Reference Range Interpretation Comments Glucose [Mass/volume] in 84 mg/dL 65-99 Serum or Plasma (test code = 2345-7) Urea nitrogen [Mass/volume] 12 mg/dL 6-20 in Serum or Plasma (test code = 3094-0) Creatinine [Mass/volume] in 0.68 mg/dL 0.57-1.00 Serum or Plasma (test code = 2160-0) eGFR if nonafricn AM (test 111 mL/min/1.73 >59 code = eGFR if nonafricn AM) eGFR if africn AM (test code 128 mL/min/1.73 >59 = eGFR if africn AM) Urea nitrogen/Creatinine 18 9-23 [Mass Ratio] in Serum or Plasma (test code = 3097-3) Sodium [Moles/volume] in 141 mmol/L 134-144 Serum or Plasma (test code = 2951-2) Potassium [Moles/volume] in 4.4 mmol/L 3.5-5.2 Serum or Plasma (test code = 2823-3) Chloride [Moles/volume] in 103 mmol/L 96-106 Serum or Plasma (test code = 5-0) Carbon dioxide, total 23 mmol/L 20-29 [Moles/volume] in Serum or Plasma (test code = 2027-9) Calcium [Mass/volume] in 9.1 mg/dL 8.7-10.2 Serum or Plasma (test code = 92518-9) Protein [Mass/volume] in 6.7 g/dL 6.0-8.5 Serum or Plasma (test code = 2885-2) Albumin [Mass/volume] in 4.1 g/dL 3.5-5.5 Serum or Plasma (test code = 1751-7) Globulin [Mass/volume] in 2.6 g/dL 1.5-4.5 Serum by calculation (test code = 03836-6) Albumin/Globulin [Mass Ratio] 1.6 1.2-2.2 in Serum or Plasma (test code = 1759-0) Bilirubin.total [Mass/volume] 0.4 mg/dL 0.0-1.2 in Serum or Plasma (test code = 1975-2) Alkaline phosphatase 55 IU/L 39-117 [Enzymatic activity/volume] in Serum or Plasma (test code = 6768-6) Aspartate aminotransferase 19 IU/L 0-40 [Enzymatic activity/volume] in Serum or Plasma (test code = 1920-8) Alanine aminotransferase 22 IU/L 0-32 [Enzymatic activity/volume] in Serum or Plasma (test code = 1742-6) [facility] - Serum or Plasma 2019-05-14 00:00:00 Test Item Value Reference Range Interpretation Comments Cholesterol [Mass/volume] in Serum 196 mg/dL 100-199 or Plasma (test code = 2093-3) Triglyceride [Mass/volume] in Serum 127 mg/dL 0-149 or Plasma (test code = 2571-8) Cholesterol in HDL [Mass/volume] in 44 mg/dL >39 Serum or Plasma (test code = 2085-9) Cholesterol in VLDL [Mass/volume] 25 mg/dL 5-40 in Serum or Plasma by calculation (test code = 37124-5) Cholesterol in LDL [Mass/volume] in 127 mg/dL 0-99 H Serum or Plasma by calculation (test code = 15341-3) comment: (test code = comment:) cellular equipment installer [facility] peptide [Mass/volume] in Serum or [id number] 00:00:00 Test Item Value Reference Range Interpretation Comments C peptide [Mass/volume] in Serum or 2.7 NG/mL 1.1-4.4 Plasma (test code = 1986-9) [facility] IrvingTSH reflex to [id number] 00:00:00 Test Item Value Reference Range Interpretation Comments Thyrotropin [Units/volume] in 2.580 uIU/mL 0.450-4.500 Serum or Plasma by Detection limit <= 0.005 mIU/L (test code = 31988-3) [facility] Irving[facility]ulin [Units/volume] in Serum or [id number] 00:00:00 Test Item Value Reference Range Interpretation Comments Insulin [Units/volume] in Serum 12.1 uIU/mL 2.6-24.9 or Plasma (test code = 34592-7) [facility] Irving[facility] assessment panel, [id number] 00:00:00 Test Item Value Reference Range Interpretation Comments interpretation (test code = note interpretation) pdf image (test code = pdf image) . [facility] [id number] 15:30:00 Test Item Value Reference Range Interpretation Comments Rate & Rhythm (test code = 65 sinus rhythm Rate & Rhythm) ND Interval (test code = ND 185 Interval) QRS Duration (test code = QRS 87 Duration) QT Interval (test code = QT 385 Interval) [facility] [id number] 15:30:00 Test Item Value Reference Range Interpretation Comments Rate & Rhythm (test code = 65 sinus rhythm Rate & Rhythm) ND Interval (test code = ND 185 Interval) QRS Duration (test code = QRS 87 Duration) QT Interval (test code = QT 385 Interval) [facility] [id number] 15:30:00 Test Item Value Reference Range Interpretation Comments Rate & Rhythm (test code = 65 sinus rhythm Rate & Rhythm) ND Interval (test code = ND 185 Interval) QRS Duration (test code = QRS 87 Duration) QT Interval (test code = QT 385 Interval) [facility] [id number] 15:30:00 Test Item Value Reference Range Interpretation Comments Rate & Rhythm (test code = 65 sinus rhythm Rate & Rhythm) ND Interval (test code = ND 185 Interval) QRS Duration (test code = QRS 87 Duration) QT Interval (test code = QT 385 Interval) [facility] [id number] 15:30:00 Test Item Value Reference Range Interpretation Comments Rate & Rhythm (test code = 65 sinus rhythm Rate & Rhythm) ND Interval (test code = ND 185 Interval) QRS Duration (test code = QRS 87 Duration) QT Interval (test code = QT 385 Interval) [facility] IrvingHemoglobin A1c/Hemoglobin.total in [id number] 00:00:00 Test Item Value Reference Range Interpretation Comments Hemoglobin A1c/Hemoglobin.total in 5.3 % 4.8-5.6 Blood (test code = 4548-4) [facility] IrvingHemoglobin A1c/Hemoglobin.total in [id number] 00:00:00 Test Item Value Reference Range Interpretation Comments Hemoglobin A1c/Hemoglobin.total in 5.3 % 4.8-5.6 Blood (test code = 4548-4) [facility] IrvingHemoglobin A1c/Hemoglobin.total in [id number] 00:00:00 Test Item Value Reference Range Interpretation Comments Hemoglobin A1c/Hemoglobin.total in 5.3 % 4.8-5.6 Blood (test code = 4548-4) [facility] IrvingInsulin [Units/volume] in Serum or [id number] 00:00:00 Test Item Value Reference Range Interpretation Comments Insulin [Units/volume] in Serum 78.9 uIU/mL 2.6-24.9 H or Plasma (test code = 02783-9) [facility] IrvingInsulin [Units/volume] in Serum or [id number] 00:00:00 Test Item Value Reference Range Interpretation Comments Insulin [Units/volume] in Serum 78.9 uIU/mL 2.6-24.9 H or Plasma (test code = 97095-0) [facility] IrvingFollitropin and Lutropin panel [Units/volume] - Serum or [id number] 00:00:00 Test Item Value Reference Range Interpretation Comments Lutropin [Units/volume] in Serum 0.8 mIU/mL or Plasma (test code = 22832-4) Follitropin [Units/volume] in 1.7 mIU/mL Serum or Plasma (test code = 77026-0) [facility] IrvingTestosterone free and total panel [Mass/volume] - Serum or [id number] 00:00:00 Test Item Value Reference Range Interpretation Comments Testosterone [Mass/volume] in Serum 6 NG/dL 8-48 L or Plasma (test code = 2986-8) Testosterone Free [Mass/volume] in 0.4 pg/mL 0.0-4.2 Serum or Plasma (test code = 2991-8) [facility] IrvingEstradiol (E2) [Mass/volume] in Serum or [id number] 00:00:00 Test Item Value Reference Range Interpretation Comments Estradiol (E2) [Mass/volume] in 9.6 pg/mL Serum or Plasma (test code = 2243-4) [facility] ProgramProgesterone [Mass/volume] in Serum or [id number] 00:00:00 Test Item Value Reference Range Interpretation Comments Progesterone [Mass/volume] in Serum or <0.1 Plasma (test code = 2839-9) [facility] ProgramInsulin [Units/volume] in Serum or [id number] 00:00:00 Test Item Value Reference Range Interpretation Comments Insulin [Units/volume] in Serum 78.9 uIU/mL 2.6-24.9 H or Plasma (test code = 40310-8) [facility] IrvingFollitropin and Lutropin panel [Units/volume] - Serum or [id number] 00:00:00 Test Item Value Reference Range Interpretation Comments Lutropin [Units/volume] in Serum 0.8 mIU/mL or Plasma (test code = 37639-5) Follitropin [Units/volume] in 1.7 mIU/mL Serum or Plasma (test code = 73499-5) [facility] IrvingTestosterone free and total panel [Mass/volume] - Serum or [id number] 00:00:00 Test Item Value Reference Range Interpretation Comments Testosterone [Mass/volume] in Serum 6 NG/dL 8-48 L or Plasma (test code = 2986-8) Testosterone Free [Mass/volume] in 0.4 pg/mL 0.0-4.2 Serum or Plasma (test code = 2991-8) [facility] IrvingEstradiol (E2) [Mass/volume] in Serum or [id number] 00:00:00 Test Item Value Reference Range Interpretation Comments Estradiol (E2) [Mass/volume] in 9.6 pg/mL Serum or Plasma (test code = 2243-4) [facility] ProgramProgesterone [Mass/volume] in Serum or [id number] 00:00:00 Test Item Value Reference Range Interpretation Comments Progesterone [Mass/volume] in Serum or <0.1 Plasma (test code = 2839-9) [facility]
[2021-08-20 09:31] LABS: Urine Blood 3+ (Negative); Urine Glucose Negative (Negative); Urine Protein 2+ (Negative)
[2021-08-20] MEDS ORDERED: ONDANSETRON 4 MG/2 ML VIAL ONE ×2 (09:48→16:17)
[2021-08-20] MEDS ORDERED: NA CHLORIDE 0.9% 1,000 ML ONE ×2 (09:48→11:26)
[2021-08-20 09:57] LABS: Hematocrit 41.9 % (36.0-45.0); Lymphocytes % 19.1 % (15.3-44.8); MPV 7.5 fL (7.6-11.3); RBC Red Blood Cell Count 4.69 M/uL (3.86-4.86)
[2021-08-20 10:45] LABS: ALT/SGPT 30 U/L (12-78); AST/SGOT 20 U/L (15-37); Albumin 3.3 g/dL (3.4-5.0); Alkaline Phosphatase 72 U/L (45-117); BUN Blood Urea Nitrogen 10 mg/dL (7-18); Bicarbonate 25 mmol/L (21-32); Bilirubin Direct 0.1 mg/dL (0-0.2); Bilirubin Total 0.5 mg/dL (0.2-1.0); Glucose Level 103 mg/dL (74-106); Lipase 56 U/L (73-393); Potassium 3.9 mmol/L (3.5-5.1); Protein, Total 7.5 g/dL (6.4-8.2); Sodium Level 137 mmol/L (136-145)
[2021-08-20 11:14] LABS: Urine Bacteria <20 /HPF (<20); Urine Mucus 3+ /HPF (NONE SEEN); Urine RBC TNTC /HPF (NONE SEEN)
--- NOTE | 2021-08-20 11:23 | RAD REPORT ---
EXAM DESCRIPTION: CTAbdomen Pelvis W Contrast - 08/20/2021 11:09 am CLINICAL HISTORY: Abdominal pain. Flank pain;Abd pain COMPARISON: Urethrocystogrphy Retrograde dated 08/15/2021 TECHNIQUE: Biphasic CT imaging of the abdomen and pelvis was performed with 100 ml non-ionic IV cont rast. All CT scans are performed using dose optimization technique as appropriate and may include automated exposure control or mA/KV adjustment according to patient size. FINDINGS: The lung bases are clear. The liver, spleen, pancreas, adrenal glands and left kidney are within normal limits. There is mild right hydronephrosis and hydroureter present. Soft tissue density is seen in the inferi or 2.5 cm of the right ureter. This could represent debris or mass. No bowel obstruction, free air, free fluid or abscess. The appendix is normal. No evidence of signi ficant lymphadenopathy. No suspicious bony findings. IMPRESSION: Soft tissue density material is seen within the distal right ureter resulting in mild ri ght hydronephrosis and hydroureter. This may be related to debris or mass.
[2021-08-20 12:29] LABS: Urine Bacteria <20 /HPF (<20); Urine RBC 20-50 /HPF (NONE SEEN)
--- NOTE | 2021-08-20 14:45 | ER ---
Nurse's Notes [facility] Name: Linda Velez Age: 41 yrs Sex: Female : 1980 Arrival Date: 08/20/2021 Time: 09:02 Bed 14 Private MD: Mohamud Hebert Diagnosis: Hydroureter-right;Other hydronephrosis-right Presentation: 08/20 09:20 Chief complaint: Patient states: RT FLANK PAIN. STENT PLACED IN RT KIDNEY THIS LAST tw5 SATURDAY. Coronavirus screen: Vaccine status: Patient reports receiving the 2nd dose of the covid vaccine. Ebola Screen: Patient denies travel to an Ebola-affected area in the 21 days before illness onset. Initial Sepsis Screen: Does the patient meet any 2 criteria? No. Patient's initial sepsis screen is negative. Does the patient have a suspected source of infection? No. Patient's initial sepsis screen is negative. Risk Assessment: Do you want to hurt yourself or someone else? Patient reports no desire to harm self or others. 09:20 Method Of Arrival: Ambulatory tw5 09:20 Acuity: SUNDAY 3 tw5 09:24 Onset of symptoms was August 14, 2021. tw5 Triage Assessment: 09:22 General: Appears in no apparent distress. comfortable, obese, well groomed, Behavior is tw5 calm, cooperative. Pain: Complains of pain in right mid back Pain currently is 4 out of 10 on a pain scale. Musculoskeletal: No deficits noted. - Social history:: Smoking status: Patient denies any tobacco usage or history of. Screenin:24 Abuse screen: Denies threats or abuse. Nutritional screening: No deficits noted. tw5 Tuberculosis screening: No symptoms or risk factors identified. Fall Risk None identified. Assessment: 09:23 General: Appears in no apparent distress. Behavior is calm, cooperative. Pain: tw5 Complains of pain in right mid back Pain currently is 4 out of 10 on a pain scale. Quality of pain is described as sharp, stabbing. Neuro: No deficits noted. : Urine is blood tinged, Reports pain in right flank(s). 10:47 Reassessment: Patient states feeling better. cb5 14:28 Reassessment: Patient and/or family updated on plan of care and expected duration. Pain cb5 level reassessed. Vital Signs: 09:20 BP 114 / 74; Pulse 86; Resp 18; Temp 97.7(O); Pulse Ox 97% ; Weight 110.22 kg; Height 5 tw5 ft. 7 in. (170.18 cm); Pain 4/10; 09:20 Body Mass Index 38.06 (110.22 kg, 170.18 cm) tw5 ED Course: 09:02 Patient arrived in ED. as 09:03 Mohamud Hebert MD is Private Physician. as 09:09 Jhon Miller NP is [facility]. pm1 09:09 Bonifacio Carrero MD is Attending Physician. pm1 09:20 Heidi Dejesus is Primary Nurse. tw5 09:22 Triage completed. tw5 09:24 Patient has correct armband on for positive identification. tw5 09:51 Inserted saline lock: 22 gauge in right forearm, using aseptic technique. mb7 11:09 CT Abd/Pelvis - IV Contrast Only In Process Unspecified. EDMS 12:03 Urine Culture Sent. cb5 12:04 Urine Microscopic Only Sent. cb5 12:04 Urine Culture Sent. cb5 14:43 Mohamud Hebert MD is Hospitalizing Provider. pm1 15:24 No provider procedures requiring assistance completed. Patient admitted, IV remains in ss place. Administered Medications: 09:50 Drug: NS 0.9% 1000 ml Route: IV; Rate: 1000 ml; Site: right antecubital; tw5 09:50 Drug: Zofran (Ondansetron) 4 mg Route: IVP; Site: right antecubital; tw5 11:25 Drug: NS 0.9% 1000 ml Route: IV; Rate: 1000 ml; Site: right antecubital; cb5 Outcome: 14:44 Decision to Hospitalize by Provider. pm1 15:24 Admitted to OR accompanied by nurse, via stretcher. ss 15:24 Condition: good 15:24 Instructed on the need for admit. 15:25 Patient left the ED. Signatures: Dispatcher [employer] Madhuri Garcia Shelby, RN RN Jhon Miller NP [employer] WORKER pm1 Heidi Dejesus tw5 Jaimee Tong mb7 Marilyn Ford, RN RN cb5
--- NOTE | 2021-08-20 14:45 | EDPHYS ---
Physician Documentation [facility] Name: Linda Velez Age: 41 yrs Sex: Female : 1980 Arrival Date: 08/20/2021 Time: 09:02 Bed 14 Private MD: Mohamud Hebert ED Physician Bonifacio Carrero HPI: 08/20 09:32 This 41 yrs old Female presents to ER via Ambulatory with complaints of Pelvic Pain, pm1 Urinary Problem, Back Pain. 09:32 The patient presents with flank pain, on the right, pelvic pain, that is located in/on pm1 the suprapubic area, the pain does not radiate, the pain is described as crampy, urinary symptoms, Pain at the end of urination at urinary meatus. Onset: The symptoms/episode began/occurred 5 day(s) ago. Modifying factors: The symptoms are alleviated by nothing, the symptoms are aggravated by nothing. Associated signs and symptoms: Pertinent positives: nausea, Pertinent negatives: fever. Severity of symptoms: in the emergency department the symptoms are actually worse. The patient has been recently seen by a physician: Dr. Hebert. Saturday patient had bladder masses/cysts removed for biopsy and had stent placed, right ureter. Stent removed . Patient currently not taking any antibiotics. Took three day course of antibiotics for heart valve issues. - Social history:: Smoking status: Patient denies any tobacco usage or history of. ROS: 10:56 Positive for pelvic pain, flank pain, burning with urination, Negative for vaginal pm1 bleeding, vaginal discharge, vaginal itching. 10:56 Constitutional: Negative for fever, chills, and weight loss, Cardiovascular: Negative for chest pain, palpitations, and edema, Respiratory: Negative for shortness of breath, cough, wheezing, and pleuritic chest pain. 10:56 MS/Extremity: Negative for injury and deformity, Skin: Negative for injury, rash, and discoloration, Neuro: Negative for headache, weakness, numbness, tingling, and seizure. 10:56 Abdomen/GI: Positive for nausea, Negative for vomiting, diarrhea, constipation. 10:56 Back: Positive for flank pain, on the right. 10:56 All other systems are negative. Exam: 10:56 Constitutional: This is a well developed, well nourished patient who is awake, alert, pm1 and in no acute distress. Head/Face: Normocephalic, atraumatic. 10:56 Back: No spinal tenderness. No costovertebral tenderness. Full range of motion. Skin: Warm, dry with normal turgor. Normal color with no rashes, no lesions, and no evidence of cellulitis. MS/ Extremity: Pulses equal, no cyanosis. Neurovascular intact. Full, normal range of motion. 10:56 Eyes: Exam is negative for acute changes, Extraocular movements: no acute changes, Conjunctiva: no acute changes, no injection. 10:56 ENT: Exam is negative for acute changes, Mouth: no acute changes, Lips: normal, moist, Oral mucosa: normal, pink and intact, moist. 10:56 Cardiovascular: Exam negative for acute changes, Rate: normal, Rhythm: regular, Pulses: no pulse deficits are appreciated. 10:56 Respiratory: Exam negative for acute changes, respiratory distress, shortness of breath. 10:56 Neuro: Exam negative for acute changes, Orientation: is normal, Mentation: is normal, Motor: is normal, moves all fours. Vital Signs: 09:20 BP 114 / 74; Pulse 86; Resp 18; Temp 97.7(O); Pulse Ox 97% ; Weight 110.22 kg; Height 5 tw5 ft. 7 in. (170.18 cm); Pain 4/10; 09:20 Body Mass Index 38.06 (110.22 kg, 170.18 cm) tw5 MDM: 09:12 Patient medically screened. pm1 10:58 Data reviewed: vital signs. Data interpreted: Pulse oximetry: on room air is 97 %. pm1 Interpretation: normal. 13:13 Physician consultation: Mohamud Hebert MD regarding consult, patient's condition, will pm1 call back after reviewing imaging. 14:38 Physician consultation: Mohamud Hebert MD in the emergency department to see patient at pm1 14:23, will take the patient to OR. 14:42 Counseling: I had a detailed discussion with the patient and/or guardian regarding: the pm1 historical points, exam findings, and any diagnostic results supporting the discharge/admit diagnosis, lab results, radiology results, the need for further work-up and treatment in the hospital. 08/20 09:12 Order name: Urine Microscopic Only; Complete Time: 11:15 pm1 08/20 09:30 Order name: Basic Metabolic Panel; Complete Time: 10:46 pm1 08/20 09:30 Order name: CBC with Diff; Complete Time: 10:10 pm1 08/20 09:30 Order name: Hepatic Function; Complete Time: 10:46 pm1 08/20 09:30 Order name: Lipase; Complete Time: 10:46 pm1 08/20 09:31 Order name: Urine Dipstick-Ancillary; Complete Time: 09:36 EDMS 08/20 09:30 Order name: CT Abd/Pelvis - IV Contrast Only; Complete Time: 11:25 pm1 08/20 09:35 Order name: Urine --Ancillary (enter results); Complete Time: 09:58 eb 08/20 11:16 Order name: Urine Culture EDOR 08/20 11:46 Order name: Urine Microscopic Only; Complete Time: 12:53 pm1 08/20 11:46 Order name: Urine Culture pm1 08/20 09:12 Order name: Urine Dipstick-Ancillary (obtain specimen); Complete Time: 09:33 pm1 08/20 09:12 Order name: Urine Test (obtain specimen); Complete Time: 09:32 pm1 08/20 09:30 Order name: IV Saline Lock; Complete Time: 09:50 pm1 08/20 09:30 Order name: Labs collected and sent; Complete Time: 09:50 pm1 08/20 11:23 Order name: Straight Cath - Urine; Complete Time: 12:03 pm1 08/20 11:46 Order name: Urine Dipstick-Ancillary (obtain specimen); Complete Time: 12:03 pm1 Administered Medications: 09:50 Drug: NS 0.9% 1000 ml Route: IV; Rate: 1000 ml; Site: right antecubital; tw5 09:50 Drug: Zofran (Ondansetron) 4 mg Route: IVP; Site: right antecubital; tw5 11:25 Drug: NS 0.9% 1000 ml Route: IV; Rate: 1000 ml; Site: right antecubital; cb5 Disposition: 16:35 Co-signature as Attending Physician, Bonifacio Carrero MD. rn Disposition Summary: 08/20/21 14:44 Hospitalization Ordered Hospitalization Status: Observation pm1 Provider: Mohamud Hebert pm1 Location: Operating Room pm1 Condition: Stable pm1 Problem: new pm1 Symptoms: are unchanged pm1 Bed/Room Type: Standard pm1 Room Assignment: pm1 Diagnosis - Hydroureter - right pm1 - Other hydronephrosis - right pm1 Discharge Instructions: - Discharge Summary Sheet eb Forms: - Medication Reconciliation Form pm1 - SBAR form eb Signatures: Dispatcher [employer] EDBonifacio Conroy MD MD rn Marinas, Patrick, NP [employer] pm1 Heidi Dejesus tw5 Marilyn Ford RN RN cb5
[2021-08-20] MEDS ORDERED: propofoL 200 MG/20 ML VIAL IV ONE (15:14)
[2021-08-20] MEDS ORDERED: LIDOCAINE 1% MPF 5 ML VIAL ONE (15:14)
[2021-08-20] MEDS ORDERED: FENTANYL CITR 100 MCG/2 ML ONE (15:15)
[2021-08-20] MEDS ORDERED: Ringers Lactate 1,000 ML IV ONE (15:27)
[2021-08-20] MEDS ORDERED: CEFAZOLIN SODIUM 1 GM/VIAL ONE (15:30)
[2021-08-20] MEDS ORDERED: KETOROLAC 30 MG/ML INJ ONE (16:10)
[2021-08-20] MEDS ORDERED: dexAMETHasone 10 MG/ML VIAL ONE (16:10)
--- NOTE | 2021-08-20 16:45 | RAD REPORT ---
EXAM DESCRIPTION: RAD - Urethrocystogrphy Retrograde - 08/20/2021 4:30 pm CLINICAL HISTORY: RETROGRADE CYSTOGRAPHY COMPARISON: Urethrocystogrphy Retrograde dated 08/15/2021 FINDINGS: Total fluoro time: 5.4 min
--- NOTE | 2021-08-20 16:54 | CON ---
Reason For Consultation: Right flank pain. History Of Present Illness: Ms. Velez is a 41-year-old woman with some anxiety disorder issues, wh o presented for urologic evaluation with microscopic hematuria. She underwent a renal ultrasound, wh ich was unremarkable and then follow that with a cystoscopic evaluation, which revealed the presence of a tiny posterior bladder lesion as well as an extensive degree of squamous metaplasia. Cxbladder detect was sent to assess for potential for underlying signs of malignancy via the genetics and the s core was borderline for high gene expression. As a result, after counseling she elected to proceed w ith biopsies. On 08/15/2021, she presented for operative evaluation and underwent a cystoscopy with bladder biopsies, bilateral retrogrades, and on the right side, a filling defect was noted in the mid upper pole region. 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 No papillary urothelial tumors were noted wit hin the renal pelvis or throughout the urothelium of the upper tract. As a result, the ureteroscopy was concluded and a stent was placed with ease. No complications were noted at the end of the proced ure. The patient had her stent removed on in the [facility]. It was left on a tether. She then called via the Answering Service yesterday complaining of intermittent flank pain that woul d last for 2 or 3 hours and be severe in intensity associated with some nausea during the pain events . She denied any associated fever or chills, and she denied any specific dysuria that was progressiv e. Because the pain did not improve despite attempts to manage it at home, she came to the emergency department today for evaluation. A CT scan with IV contrast was obtained and revealed the presence of mild pelviectasis with ureteral nephrosis extending down to the extramural UVJ on the right side w here a collection/mass was noted in the vicinity of the distal ureter. It is unclear the source of t his mass as she had only had an ultrasound preoperatively, but this was clearly causing a degree of o bstruction and causing her pain. At the time of my visit with the patient, she was sitting in the bed, alert, awake, and oriented, in no acute distress. Her pain had been well managed by the emergency department at this time. Her abd omen was soft and nontender. Review of her labs was normal with no elevated white count and normal creatinine. Assessment And Recommendations: This is a 41-year-old woman, status post right ureteroscopy and sten t placement with distal ureteral extravesical collection/mass, likely a hematoma associated with disr uption of one of the periureteral vessels during the ureteroscopic procedure. I recommend operative retrograde pyelogram and right ureteral stent placement to evaluate the integri ty of the lower urinary tract and rule out extravasation, but also to relieve the obstruction causing her nausea and pain. Subsequent evaluation will be required to assess for resolution of this mass/s uspected hematoma or further definitive evaluation will be required. VINNY/JAY Voice ID: [id number] Report ID: [id number]
[2021-08-20 17:40] VITALS: BP 108/62; TEMP 98.5; O2SAT 97
--- NOTE | 2021-08-20 18:10 | OP ---
Surgeon: LAUREN CALVILLO Preoperative Diagnoses: 1.Right hydroureteronephrosis. 2.Periureteral collection/mass near the extravesical ureter. Postoperative Diagnoses: 1.Right hydroureteronephrosis. 2.Periureteral collection/mass near the extravesical ureter. 3.Suspected periureteral hematoma. Principle Procedures: 1.Cystoscopy. 2.Right retrograde pyelography. 3.Right ureteral stent placement. Indication For Procedure: Ms. Velez underwent cystoscopy with bladder biopsies followed by bilater al retrograde pyelography studies and then right ureteroscopy for a filling defect observed in the up per mid pole calyx that was confirmed to simply be an attenuated calyx. She subsequently had the laury nt removed, but developed progressively worsening flank pain and found to have hydronephrosis associa shan with an extra ureteral collection in the pelvis causing a degree of obstruction. She presents fo r definitive operative evaluation. Procedure In Detail: The patient was consented in the preoperative holding area before being transfe rred to the operative suite where general anesthesia was induced. She was given Ancef 2 g IV antimic robial prophylaxis and pneumo boots were provided for DVT prophylaxis. She was placed in the lithoto my position, padded and secured to the table appropriately. Her genitalia were prepped using Hibicle ns and she was draped in standard fashion. The case was begun using a 22-Swedish rigid cystoscope to traverse the urethra and into the bladder with ease. The sites of prior biopsy were observed and the right ureteral orifice was also observed and was patent. I was able to cannulate it easily with the tip of a 5-Swedish ureteral access catheter, which was advanced 1 or 2 cm into the distal ureter. A spot fluoroscopic image was obtained to confirm good positioning of the catheter. I then performed a retrograde pyelogram on the right. Right retrograde pyelography: Using a 70:30 mixture of Omnipaque and saline, contrast was injected via the 5-Swedish ureteral access catheter and did propagate with ease up a moderately dilated ureter into a [id number] dilate d renal pelvis. There was no extravasation of contrast at any point observed along the ureter. The 5-Swedish ureteral access catheter was removed to confirm the absence of extravasation of contrast, wh ich was easily effluxing into the bladder. As a result, I then replaced the 5-Swedish ureteral access catheter and passed the Sensor wire into the renal pelvis where a coil was observed fluoroscopically . I then passed a 6-Swedish by 26 cm double-J ureteral stent over the wire into the renal pelvis and removed the wire leaving a coil within the renal pelvis. An additional coil was formed within the bl adder and observed cystoscopically. The patient's bladder was then decompressed of fluid and urine, and then she was taken out of the lithotomy position. She was then awakened from general anesthesia, transferred to a stretcher, and then transferred to the recovery room in good condition. Complications from this procedure none, but this appears to be a complication from the prior procedur e in that a pelvic periureteral hematoma caused the right ureteral obstruction. Discharge Disposition: She will maintain the ureteral stent for the next 4-6 weeks obtaining repeat anatomic imaging with a CT scan with IV contrast in about 1 month to reassess the presence and size o f the extra ureteral mass causing obstruction. Presuming this is a hematoma, hopefully it will resol ve in that time. As long as there is significant resolution of this structure, we will then plan sub sequent right ureteral stent extraction in the clinic cystoscopically. In the meantime, I have disch arged the patient with Ketoralac and Tylenol No.3 for pain as well as Ditropan for spasms associated with the ureteral stent. VINNY/TAYLORL Voice ID: [id number] Report ID: [id number]
== END 2021-08-20 17:21 | disposition home or self-care (01) ==
LOC: ER 09:01 → UNDOADMOB 14:49 → ERHOLD 14:49 → DS 14:49
PROVIDERS: ATTEND Urology
PROC: 0T768DZ Dilation of Right Ureter with Intraluminal Device, Via Natural or Artificial Opening Endoscopic (ICD-10-PCS; principal; 2021-08-20 15:30)
DX: N13.30 Unspecified hydronephrosis (principal); N28.9 Disorder of kidney and ureter, unspecified
CPT/HCPCS: 87088 ×2; 85025; 87086 ×2; 80048; 36415; 81025; 80076; 83690; 74177; 74450; 51610; 96374; 99285; 52332; Q9967; J2704; J3010; J1100; J7120; J7030 ×2; J2405 ×2; J0690; 81003; 81015